=== PATIENT | female | born 1970 ===

== ENCOUNTER 2016-06-21 14:23 | Inpatient (IN) ==
--- NOTE | 2016-06-21 14:52 | EKG Report ---
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
[2016-06-21 15:05] LABS: Basophils % 0.3 % (0.0-0.8); Eosinophils # 0.3 10*3/uL (0.0-0.87); Eosinophils % 3.9 % (0.00-10.9); Hematocrit 24.3 VOL% (35.7-47.0); Hemoglobin 7.9 GM/DL (12.0-16.0); Immature Granulocytes % 1.1 %; Immature Granulocytes Absolute 0.08 #; Lymphocytes # 2.4 10*3/uL (1.4-4.0); Lymphocytes % 32.5 % (21.3-54.2); Mean Corpuscular HGB Conc 32.5 GM/DL (32-36); Mean Corpuscular Hemoglobin 29 PG (27-34); Mean Corpuscular Volume 89.7 FL (87-102); Mean Platelet Volume 9.3 FL (9.6-12.0); Monocytes # 0.3 10*3/uL (0.11-0.8); Monocytes % 3.7 % (1.7-12.7); Neutrophils # 4.2 10*3/uL (1.4-7.4); Neutrophils % 58.5 % (38.7-73.9); Platelet Count 270 T/CUMM (130-400); Red Blood Count 2.71 MC/CUMM (3.8-5.5); Red Cell Distribution Width 13.3 % (9.3-17.3); White Blood Count 7.2 T/CUMM (4-12)
[2016-06-21 15:40] LABS: Apearance,Urine CLOUDY (Clear); Bilirubin,Urine Negative (Negative); Blood, Urine Negative (Negative); Glucose,Urine (UA) 150 mg/dL (Negative); Ketones,Urine Negative (Negative); Mucus,Urine Occasional /LPF (Occasional); Nitrite,Urine Negative (Negative); Protein,Urine >=500 MG/DL; RBC,Urine 2 /HPF (0-4); Squamous Epithelial Cell,Urine Few /HPF (0-10); Urine Color Yellow (Yellow); Urine Specific Gravity 1.019 (1.001-1.035); Urine Urobilinogen < 2.0 EU/DL (0.2-1.0); WBC,Urine 17 /HPF (0-6)
[2016-06-21 15:43] LABS: Calcium 6.8 MG/DL (8.5-10.1); Osmolality,Calculated 301.4 MOS/KG (273-304); Potassium 4.1 MMOL/L (3.5-5.1)
[2016-06-21 15:45] LABS: Troponin I Only 0.213 NG/ML (0.00-0.045)
[2016-06-21 15:49] LABS: Barbiturates Screen,Urine Negative (Negative); Benzodiazepines Screen,Urine Negative (Negative); Cannabinoid Screen,Urine Negative (Negative); Opiate Screen,Urine Negative (Negative); Phencyclidine Screen,Urine Negative (Negative)
--- NOTE | 2016-06-21 15:54 | XRay Report ---
XR chest 1V portable Indication: Shortness of breath Comparison: 30 November 2015 Findings: The heart and mediastinum are normal in size and configuration. The pulmonary vascularity is normal in caliber. There is faint increased left lower lung density. No other lung infiltrates, effusions, pneumothorax or other abnormality is demonstrated. Impression: Faint increased left lower lung density, may indicate pneumonia. PROCEDURE INTERPRETED AT [facility] DEPARTMENT OF RADIOLOGY Final Report Signed by: Dr. Wesley aFy
[2016-06-21] MEDS ORDERED: FUROSEMIDE 20 MG/2 ML VIAL IV STA (16:39)
[2016-06-21] MEDS ORDERED: FUROSEMIDE 20 MG/2 ML VIAL ONE (16:54)
--- NOTE | 2016-06-21 17:07 | Emergency Department Note ---
Vernon Jimenez Brittany, am scribing for, and in the presence of, Khadar Rubi MD 14:50. Greyson Jimenez Doug C, MD, personally performed the services described in this documentation, ascribed by Ramya Junior in my presence, and it is both accurate and complete [id number] . Arrival - Arrival Chief Complaint: Syncope Stated Complaint: syncope ED Nursing Triage Note: Brought in per EMS from home s/p syncopal episode prior to arrival. Reports was in bathroom at home, became dizzy with blurred vision then had syncopal episode. c/o left shoulder pain. AAO x 3 at present, speech clear. Mode of Arrival: Stretcher Limitations: No Limitations Source: Patient, Family, RN Notes Reviewed Time Seen by Provider: 06/21/16 14:47 - History of Present Illness HPI Narrative: Patient is a 45-year-old truncal female stage C syncopal episode today. Patient states she was in the restroom when it occurred tells me she was feeling weak before it occurred. Patient states she noticed some blurring of her vision and went into the restroom to go the bathroom and the next thing she knew she was on the floor. She apparently had to crawl open the door was someone could come in and help her. Patient states she was feeling poorly for about 15-20 minutes before she had a syncopal episode. She denies any fever and she has not had any leg pain. She does have a history of coronary artery disease and fairly recently had a left heart catheterization showed her to have moderate coronary artery stenosis. She denies any chest pain or palpitations prior to this event. She apparently also has history of cardiomyopathy. Patient states she recently had a miscarriage but did not require a D&C. Date of Last Menstrual Period: 05/29/16 Allergies/Adverse Reactions: Allergies Allergy/AdvReac Type Severity Reaction Status Date / Time No Known Allergies Allergy Verified 06/21/16 14:35 Home Medications: Home Medications Medication Instructions Recorded Confirmed Type hydrALAZINE TAB [Apresoline Tab] 25 mg PO BID #180 tablet 12/01/15 06/21/16 Rx Insulin Detemir [Levemir] 5 units SUBCUT QAM 02/05/16 06/21/16 History Atorvastatin [Lipitor] 80 mg PO BEDTIME #30 tablet 02/07/16 06/21/16 Rx Carvedilol [Coreg] 25 mg PO BID #60 tablet 02/07/16 06/21/16 Rx Lisinopril [Prinivil] 10 mg PO BID #60 tablet 02/07/16 06/21/16 Rx amLODIPine [Norvasc] 5 mg PO DAILY #30 tablet 02/07/16 06/21/16 Rx Aspirin EC Tab 81 mg PO QPM 06/21/16 06/21/16 History Guaifenesin [Guaifenesin ER] 600 mg PO BID 06/21/16 06/21/16 History Isosorbide Mononitrate [Isosorbide 30 mg PO DAILY 06/21/16 06/21/16 History Mononitrate ER] Sulfameth/Trimeth 800-160 Tab 1 tablet PO BID 06/21/16 06/21/16 History [Bactrim DS Tab] Review of System - Review of System 12 point system: reviewed and no additional remarkable complaints except as stated - Review of System Constitutional: Absent: chills, fever Eyes: Present: vision change Head/Ears/Nose/Throat: Absent: nasal drainage, sore throat Respiratory: Absent: respiratory distress Cardiovascular: Present: syncope. Absent: chest pain, palpitations Gastrointestinal: Absent: abdominal pain, nausea, vomiting, diarrhea, constipation Genitourinary female: Absent: dysuria, frequency, urgency Musculoskeletal: Present: leg pain (thigh pain). Absent: arm pain, back pain, joint swelling, neck pain Skin: Absent: rash Neurological: Absent: headache Psychiatric: Absent: anxiety, depression Endocrine: Absent: fatigue Hematological/Lymphatic: Absent: easy bleeding, easy bruising Medical,Surgical,& Family Hx - Medical History Cardio: History of: Hypertension, [place] HEENT: History of: Ear Problem (ear infections) Endocrine: History of: Diabetes Mellitus (NIDDM) Genitourinary: History of: Recurring Urinary Tract Infections Hematology: History of: Anemia - Surgical History Cardiac Surgeries: Sugical HX of: Cardiac Catheterization Abdominal Surgeries: Surgical HX of: Appendectomy, Cholecystectomy Reproductive Surgeries: Surgical HX of;: Section - Family History Family History: Reports;: Family Cancer (Mother), Family Diabetes (Father) - Social History Smoking Status: Former smoker Frequency of Alcohol Use: None Type of Drug Use: None Exam Vital Signs: Vital Signs Temperature 97.2 F L 06/21/16 14:23 Pulse Rate 79 06/21/16 16:12 Respiratory Rate 18 06/21/16 15:30 Blood Pressure 126/75 06/21/16 16:12 O2 Sat by Pulse Oximetry 97 06/21/16 15:30 - General General appearance: alert, in no apparent distress - Head Head exam: Present: atraumatic, normocephalic, normal inspection - Eye Eye exam: Present: normal appearance, PERRL, EOMI - ENT ENT exam: Present: normal exam, normal oropharynx, mucous membranes moist - Neck Neck exam: Present: normal inspection, full ROM, trachea midline - Chest Chest inspection: Present: normal inspection, symmetric chest wall rise - Respiratory Respiratory exam: Present: normal lung sounds bilaterally. Absent: rales, rhonchi, wheezes - Cardiovascular Cardiovascular exam: Present: regular rate, normal rhythm, normal heart sounds. Absent: murmur, rubs, gallop - Abdominal Exam Abdominal exam: Present: soft, normal bowel sounds. Absent: distention, tenderness - Extremities Exam Extremities exam: Present: normal inspection, full ROM. Absent: calf tenderness - Back Exam Back exam: Present: normal inspection, full ROM - Neurological Exam Neurological exam: Present: alert, oriented X3, CN II-XII intact. Absent: motor sensory deficit - Psychiatric Psychiatric exam: Present: normal affect - Skin Skin exam: Present: warm, dry Course Course Narrative: Patient's clinical presentation, laboratory and radiographic findings were discussed with Dr. Valencia and Cornelia with the hospitalist service. Patient will be evaluated by the hospitalist service for admission. Results - Labs CBC & BMP: 06/21/16 14:55 06/21/16 14:55 Lab Results: I have reviewed the patients labs Labs: Laboratory Tests 06/21/16 14:55 WBC 7.2 RBC 2.71 L Hgb 7.9 L Hct 24.3 L MCV 89.7 MCH 29 MCHC 32.5 RDW 13.3 Plt Count 270 MPV 9.3 L Neut % (Auto) 58.5 Lymph % (Auto) 32.5 [place] % (Auto) 3.7 Eos % (Auto) 3.9 Baso % (Auto) 0.3 Neut # (Auto) 4.2 Lymph # (Auto) 2.4 [place] # (Auto) 0.3 Eos # (Auto) 0.3 Baso # (Auto) 0.0 Immature Gran % 1.1 Nucleated RBC % 0.0 Immature Gran # 0.08 Nucleated RBCs # 0.00 Laboratory Tests 06/21/16 14:55 D-Dimer, Quantitative 5.2 Laboratory Tests 06/21/16 15:32 Urine Color Yellow Urine Appearance Cloudy Urine pH 6.0 Ur Specific [place] 1.019 Urine Protein >=500 Urine Glucose (UA) 150 Urine Ketones Negative Urine Blood Negative Urine Nitrate Negative Urine Bilirubin Negative Urine Urobilinogen < 2.0 H Urine Leukocytes Negative Urine RBC 2 Urine WBC 17 Ur Squamous Epith Cells Few Urine Mucus Occasional Urine Test Negative Laboratory Tests 06/21/16 06/21/16 06/21/16 14:55 15:32 15:32 Sodium 147 H Potassium 4.1 Chloride 117 H Carbon Dioxide 17 L Anion Gap 17.1 H BUN 37 H Creatinine 4.40 H GFR Calculation 10 BUN/Creatinine Ratio 8.00 Glucose 119 H Calculated Osmolality 301.4 Calcium 6.8 L Troponin I 0.213 H Urine Appearance Cloudy Urine pH 6.0 Ur Specific [place] 1.019 Urine Protein >=500 Urine Glucose (UA) 150 Urine Ketones Negative Urine Blood Negative Urine Nitrate Negative Urine Bilirubin Negative Urine Urobilinogen < 2.0 H Urine Leukocytes Negative Urine RBC 2 Urine WBC 17 Ur Squamous Epith Cells Few Urine Mucus Occasional Urine Test Negative Urine Opiates Screen Negative Ur Barbiturates Screen Negative Ur Phencyclidine Scrn Negative U Amphetamine/Methamph Negative U Benzodiazepines Scrn Negative U Cocaine Metab Screen Negative U Cannabinoids Screen Negative Laboratory Tests 06/21/16 14:55 B-Natriuretic Peptide 1893 H - EKG EKG results: interpreted by VELMA, sinus rhythm (78 bpm) - Diagnostic Findings Procedure: Chest x-ray: report reviewed by me (Faint increased left lower lung density, may indicate pneumonia.) Disposition Clinical Impression: Syncope, CHF exacerbation, Renal failure Case discussed with: patient, patient's family Disposition: Still a Patient Condition: Guarded Time of Disposition: 17:07
--- NOTE | 2016-06-21 17:40 | Hospitalist History & Physical ---
<Karen Mathiasda - Last Filed: 06/21/16 17:31> History of Present Illness Chief complaint: Syncope History of present illness: This is a 45 year-old unfortunate female who presented today with a chief complaint of syncope. The client reports feeling lightheaded while in shower; in which she exited the shower falling to the floor. She reports remembering striking her left lateral flank on the sink during the fall; however has little memory of the any proceeding events. She reports crawling to the front door for help after "waking-up" from the fall. She reports left flank pain at the time of interview. Pertinent positives: syncope, visual disturbances , vertigo; pertinent negatives: nausea, vomiting, constipation. Home Medications Medication Instructions Recorded Confirmed Type hydrALAZINE TAB [Apresoline Tab] 25 mg PO BID #180 tablet 12/01/15 06/21/16 Rx Insulin Detemir [Levemir] 5 units SUBCUT QAM 02/05/16 06/21/16 History Atorvastatin [Lipitor] 80 mg PO BEDTIME #30 tablet 02/07/16 06/21/16 Rx Carvedilol [Coreg] 25 mg PO BID #60 tablet 02/07/16 06/21/16 Rx Lisinopril [Prinivil] 10 mg PO BID #60 tablet 02/07/16 06/21/16 Rx amLODIPine [Norvasc] 5 mg PO DAILY #30 tablet 02/07/16 06/21/16 Rx Aspirin EC Tab 81 mg PO QPM 06/21/16 06/21/16 History Guaifenesin [Guaifenesin ER] 600 mg PO BID 06/21/16 06/21/16 History Isosorbide Mononitrate [Isosorbide 30 mg PO DAILY 06/21/16 06/21/16 History Mononitrate ER] Sulfameth/Trimeth 800-160 Tab 1 tablet PO BID 06/21/16 06/21/16 History [Bactrim DS Tab] Allergies Allergy/AdvReac Type Severity Reaction Status Date / Time No Known Allergies Allergy Verified 06/21/16 14:35 Medical,Surgical,& Family Hx - Medical History Cardio: History of: Hypertension, [place] HEENT: History of: Ear Problem (ear infections) Endocrine: History of: Diabetes Mellitus (NIDDM) Genitourinary: History of: Recurring Urinary Tract Infections Hematology: History of: Anemia - Surgical History Cardiac Surgeries: Sugical HX of: Cardiac Catheterization Thoracic Surgeries: Surgical HX of;: Lithotripsy Abdominal Surgeries: Surgical HX of: Appendectomy, Cholecystectomy Reproductive Surgeries: Surgical HX of;: Section - Family History Family History: Reports;: Family Cancer (Mother), Family Diabetes (Father) - Social History Smoking Status: Former smoker Frequency of Alcohol Use: None Type of Drug Use: None Marital Status: Life Partner Lives With:: Spouse Functional capacity: independent ambulation Exam - Constitutional Vitals: Period Temp Pulse Resp BP Sys/Batres Pulse Ox Last 24 Hr 97.2 F-97.2 F 76-79 18-20 99-132/50-75 95-97 Results - Labs CBC & BMP: 06/21/16 14:55 06/21/16 14:55 <WhiteLucy R - Last Filed: 06/21/16 17:59> Assessment and Plan (1) Syncope Status: Acute Assessment and plan: Patient orthostatic in the emergency room. We will give her 2 units packed red blood cells. She had a recent miscarriage in her hemoglobin is just over 8 during her heart cath in January 2016. Patient will not tolerate gentle hydration due to congestive heart failure. Current Visit: Yes (2) Acute on chronic renal failure Status: Acute Assessment and plan: Patient had elevated BNP we will treat with IV Lasix. Normally somebody orthostatic I would not give Lasix but with such an elevated BNP and severe swelling in her lower extremities. I am concerned that the 2 units packed red blood cells that she will develop difficulty breathing. Consult Dr. Bonds repeat BMP in the morning Current Visit: Yes (3) CHF exacerbation Status: Acute Assessment and plan: Echocardiogram in the morning. Heart cath in January 2016 shows 2 vessel coronary disease and cardiomyopathy with an EF of 40%. Elevated BNP will do IV Lasix. Current Visit: Yes (4) Anemia Status: Acute Assessment and plan: Guaiac stool. Protonix IV. 2 units packed cells. Current Visit: No (5) Uncontrolled diabetes mellitus Status: Chronic Assessment and plan: Insulin sliding scale restart home insulin Current Visit: No Qualifiers: Diabetes mellitus type: type 2 Diabetes mellitus complication status: with kidney complications Diabetes mellitus complication detail: with chronic kidney disease Diabetes mellitus superintendent marine oil terminal insulin use: without superintendent marine oil terminal use Chronic kidney disease stage: stage 2 (mild) Qualified Code(s): E11.22 - Type 2 diabetes mellitus with diabetic chronic kidney disease History of Present Illness History of present illness: Ms. Triplett is a 45 year old female seen and examined. Hospital course reviewed and edited. Patient recently had a miscarriage 3 weeks ago. She was 17 weeks along. Patient denies any coughing up of blood or new blood or black tarry stools. Hemoglobin is 7.9 she is orthostatic. She has congestive heart failure she says she is not taking Lasix at home. Her last known EF was 40%. - Constitutional Constitutional: Present: fatigue. Absent: fever(s), frequent falls, headache(s) - EENT Eyes: Present: blurry vision. Absent: diplopia Ears: Present: decreased hearing. Absent: ear discharge Nose, mouth and throat: Absent: headache(s), sore throat - Cardiovascular Cardiovascular: Present: dyspnea on exertion, edema. Absent: chest pain at rest , dyspnea - Respiratory Respiratory: Present: dyspnea on exertion. Absent: dyspnea, change in phlegm color - Gastrointestinal Gastrointestinal: Absent: constipation, diarrhea, hematemesis, hematochezia, melena, nausea, vomiting - Genitourinary Genitourinary: Absent: difficulty urinating, dysuria - Neurological Neurological: Present: dizziness, syncope. Absent: confusion, headache(s) - Psychiatric Psychiatric: Absent: anxiety, depression - Endocrine Endocrine: Present: fatigue. Absent: cold intolerance, heat intolerance - Hematologic/Lymphatic Hematologic/Lymphatic: Absent: easy bleeding, easy bruising Exam - Constitutional Vitals: Period Temp Pulse Resp BP Sys/Batres Pulse Ox Last 24 Hr 97.2 F-97.2 F 75-79 18-20 99-132/50-87 95-97 General appearance: normal weight, no acute distress - Head Head exam: Present: normal inspection, normocephalic - Eye Eye exam: Present: EOMI. Absent: scleral icterus Pupils: Present: HAILEY, normal accommodation - ENT ENT exam: Present: normal exam, normal external ear exam - Neck Neck exam: Absent: lymphadenopathy, thyromegaly - Respiratory Respiratory exam: Present: decreased breath sounds. Absent: rhonchi, wheezes - Cardiovascular Cardiovascular exam: Present: regular rate and rhythm. Absent: systolic murmur - GI/Abdominal GI/Abdominal exam: Present: normal bowel sounds, soft. Absent: tenderness - Extremities Exam Extremities exam: Present: normal capillary refill, edema - Neurological Exam Neurological exam: Present: alert, oriented X3, CN II-XII intact, reflexes normal. Absent: motor sensory deficit - Psychiatric Psychiatric exam: Present: normal affect, normal mood - Skin Skin exam: Present: normal color, warm Results - Labs CBC & BMP: 06/21/16 14:55 06/21/16 14:55 Lab Results: I have reviewed the past 24 hour labs Labs: BNP over 1800 - EKG EKG shows: sinus rhythm - Diagnostic Findings Procedure: Chest x-ray: report reviewed by me (LLL density), X-ray: report reviewed by me (Recent cardiac cath shows mixed cardiomyopathy with an EF of 40 % two-vessel coronary disease)
[2016-06-21 17:54] LABS: Eosinophils 4 % (0-10); Lymphocytes 25 % (20-55); Segmented Neutrophils 71 % (50-85); Total Cells Counted 100
[2016-06-21] MEDS ORDERED: MAGNESIUM SULF RIDER 4 GM in PREMIX 1 EACH IV PRN (18:05)
[2016-06-21] MEDS ORDERED: GLUCAGON 1 MG VIAL IM PRN (18:05)
[2016-06-21] MEDS ORDERED: ZALEPLON 5 MG CAPSULE PO PRN (18:05)
[2016-06-21] MEDS ORDERED: POTASSIUM CHLORIDE 20 MEQ TABLET PO PRN (18:05)
[2016-06-21] MEDS ORDERED: ONDANSETRON 4 MG/2 ML VIAL IV PRN (18:05)
[2016-06-21] MEDS ORDERED: DEXTROSE 50% 25 GM/50 ML VIAL IV PRN (18:05)
[2016-06-21] MEDS ORDERED: SODIUM CHLORIDE 0.9% 250 ML IV PRN (18:05)
[2016-06-21] MEDS ORDERED: ACETAMINOPHEN 325 MG TABLET PO PRN (18:05)
[2016-06-21] MEDS ORDERED: MAGNESIUM SULF RIDER 2 GM in PREMIX 1 EACH IV PRN (18:05)
[2016-06-21 18:56] LABS: Apearance,Urine Slightly Hazy (Clear); Bacteria,Urine Moderate /HPF (Few); Bilirubin,Urine Negative (Negative); Blood, Urine Small mg/dL (Negative); Glucose,Urine (UA) 150 mg/dL (Negative); Ketones,Urine Negative (Negative); Mucus,Urine Occasional /LPF (Occasional); Nitrite,Urine Negative (Negative); Protein,Urine >=500 MG/DL; Urine Color Yellow (Yellow); Urine Urobilinogen < 2.0 EU/DL (0.2-1.0); WBC,Urine 3 /HPF (0-6)
[2016-06-21 19:12] LABS: Magnesium 2.1 MG/DL (1.8-2.4); Thyroid Stimulating Hormone 2.74 uIU/ml (0.358-3.74)
[2016-06-21] MEDS: cefTRIAXone 1,000 MG in SODIUM CHLORIDE 0.9% 100 ML IV SCH (19:37)
[2016-06-21] MEDS: INSULIN LISPRO 100 UNIT/ML SUBCUT SCH (21:32)
--- NOTE | 2016-06-21 21:54 | Nephrology Consult Note ---
History of Present Illness Chief complaint: Acute renal failure History of present illness: Ms. Triplett is a 45 year old female with a history of hypertension diabetes coronary artery disease who earlier this afternoon fell in the bathroom after a syncopal episode. There is no history of shortness of breath or chest pain. However patient does not have any other memory surrounding the syncopal episode. She was brought to the emergency room where she is found to be anemic. Serum creatinine was also noted to be elevated at 4.4. She gives no history of kidney disease. She mentions taking Advil on occasion. Nephrology has been consulted for renal issues. Home Medications Medication Instructions Recorded Confirmed Type hydrALAZINE TAB [Apresoline Tab] 25 mg PO BID #180 tablet 12/01/15 06/21/16 Rx Insulin Detemir [Levemir] 5 units SUBCUT QAM 02/05/16 06/21/16 History Atorvastatin [Lipitor] 80 mg PO BEDTIME #30 tablet 02/07/16 06/21/16 Rx Carvedilol [Coreg] 25 mg PO BID #60 tablet 02/07/16 06/21/16 Rx Lisinopril [Prinivil] 10 mg PO BID #60 tablet 02/07/16 06/21/16 Rx amLODIPine [Norvasc] 5 mg PO DAILY #30 tablet 02/07/16 06/21/16 Rx Aspirin EC Tab 81 mg PO QPM 06/21/16 06/21/16 History Guaifenesin [Guaifenesin ER] 600 mg PO BID 06/21/16 06/21/16 History Isosorbide Mononitrate [Isosorbide 30 mg PO DAILY 06/21/16 06/21/16 History Mononitrate ER] Sulfameth/Trimeth 800-160 Tab 1 tablet PO BID 06/21/16 06/21/16 History [Bactrim DS Tab] Allergies Allergy/AdvReac Type Severity Reaction Status Date / Time No Known Allergies Allergy Verified 06/21/16 14:35 Medical,Surgical,& Family Hx - Medical History Cardio: History of: CHF, Hypertension, [place] HEENT: History of: Ear Problem (ear infections) Endocrine: History of: Diabetes Mellitus (NIDDM) Respiratory: History of: Asthma Genitourinary: History of: Recurring Urinary Tract Infections Hematology: History of: Anemia - Surgical History Cardiac Surgeries: Sugical HX of: Cardiac Catheterization (january 2016) Thoracic Surgeries: Surgical HX of;: Lithotripsy Patient denies;: Lobectomy Abdominal Surgeries: Surgical HX of: Appendectomy, Cholecystectomy Reproductive Surgeries: Surgical HX of;: Section, Dilation and Curettage (May 2016) - Family History Family History: Reports;: Family Cancer (Mother), Family Diabetes (Father) - Social History Smoking Status: Former smoker Frequency of Alcohol Use: None Type of Drug Use: None Review of Systems Constitutional: fatigue Respiratory: no cough, no dyspnea Exam - Vital Signs Vital signs: Period Temp Pulse Resp BP Sys/Batres Pulse Ox Last 24 Hr 97.5 F-98.1 F 78-88 17-25 116-166/77-89 94-97 - General Appearance General appearance: well-developed, well-nourished EENT: ATNC Neck: supple Respiratory: clear Cardiology: regular rate, regular rhythm Gastrointestinal: normoactive bowel sounds, no tenderness, no guarding Neurologic: alert and oriented x3 Musculoskeletal: no deformities Results - Labs CBC & BMP: 06/21/16 14:55 06/21/16 14:55 Assessment and Plan (1) Hypertension Status: Chronic Current Visit: No (2) Renal insufficiency Status: Chronic Assessment and plan: Patient more likely has underlying chronic kidney disease. Appears to be acute on chronic kidney disease. Current Visit: No (3) Diabetes Status: Chronic Current Visit: No Qualifiers: Diabetes mellitus type: other specified (including MELANIA) Diabetes mellitus complication status: with kidney complications Chronic kidney disease stage: stage 3 (moderate) (4) Anemia Status: Acute Current Visit: No (5) Acute on chronic renal failure Status: Acute Assessment and plan: Avoid nephrotoxic agents. Renal ultrasound. Daily BMP. Will follow with you thank you for this consult. Current Visit: Yes
[2016-06-21] MEDS ORDERED: FUROSEMIDE 40 MG/4 ML VIAL IV ONE (23:30)
[2016-06-21] MEDS: ATORVASTATIN 40 MG TABLET PO SCH (23:43)
[2016-06-22 05:25] LABS: Basophils % 0.6 % (0.0-0.8); Eosinophils # 0.2 10*3/uL (0.0-0.87); Eosinophils % 4.4 % (0.00-10.9); Hematocrit 28.9 VOL% (35.7-47.0); Hemoglobin 9.5 GM/DL (12.0-16.0); Immature Granulocytes % 0.6 %; Immature Granulocytes Absolute 0.03 #; Lymphocytes # 2.7 10*3/uL (1.4-4.0); Lymphocytes % 53.7 % (21.3-54.2); Mean Corpuscular HGB Conc 32.9 GM/DL (32-36); Mean Corpuscular Hemoglobin 29 PG (27-34); Mean Corpuscular Volume 89.5 FL (87-102); Mean Platelet Volume 9.6 FL (9.6-12.0); Monocytes # 0.3 10*3/uL (0.11-0.8); Monocytes % 6.6 % (1.7-12.7); Neutrophils # 1.7 10*3/uL (1.4-7.4); Neutrophils % 34.1 % (38.7-73.9); Platelet Count 268 T/CUMM (130-400); Red Blood Count 3.23 MC/CUMM (3.8-5.5); Red Cell Distribution Width 13.7 % (9.3-17.3)
[2016-06-22 05:49] LABS: Lymphocytes 47 % (20-55); Platelet Estimate Normal; Segmented Neutrophils 46 % (50-85); Total Cells Counted 100
[2016-06-22 05:54] LABS: Osmolality,Calculated 296.6 MOS/KG (273-304)
[2016-06-22] MEDS: FUROSEMIDE 40 MG/4 ML VIAL IV SCH ×3 (07:22→16:44)
[2016-06-22] MEDS: INSULIN LISPRO 100 UNIT/ML SUBCUT SCH ×4 (07:23→20:13)
[2016-06-22] MEDS ORDERED: PNEUMOCOCCAL VACCINE (23 VALENT) 0.5 ML VIAL IM ONE (09:00)
[2016-06-22] MEDS ORDERED: INFLUENZA VIRUS VACCINE 0.5 ML SYRINGE IM ONE (09:00)
[2016-06-22] MEDS: DOCUSATE/SENNA 50-8.6 MG TABLET PO SCH (09:55)
[2016-06-22] MEDS: INSULIN GLARGINE 100 UNIT/ML SUBCUT SCH (09:55)
--- NOTE | 2016-06-22 10:00 | Ultrasound Report ---
Referring Physician: Leif Bonds Jr Exam: US renal Bilateral Date: June 22, 2016 Reason: Acute renal failure Comparison: Renal ultrasound November 29, 2015 Technique: Grayscale ultrasound images of the kidneys were obtained. Ultrasound images were captured and stored. Findings: The right kidney measures 9.9 x 4.4 x 4.0 cm, and the left kidney measures 10.1 x 5.0 x 4.2 cm. No hydronephrosis or suspicious renal lesion is identified. The renal parenchyma echogenicity is unremarkable as visualized. Impression: No acute renal process is identified. PROCEDURE INTERPRETED AT [facility] DEPARTMENT OF RADIOLOGY Final Report Signed by: Dr. Nabeel Triplett
[2016-06-22] MEDS: amLODIPine 5 MG TABLET PO SCH (10:42)
[2016-06-22] MEDS: hydrALAZINE 25 MG TABLET PO SCH ×2 (10:43→20:05)
[2016-06-22] MEDS: LISINOPRIL 10 MG TABLET PO SCH ×2 (10:45→20:05)
--- NOTE | 2016-06-22 11:41 | Hospitalist Progress Note ---
Assessment and Plan (1) Chest pain Status: Acute Assessment and plan: patient also has chest wall pain/ flank pain of the left side from the fall. Troponin has been stable. Current Visit: No Qualifiers: Chest pain type: chest pain due to myocardial ischemia Qualified Code(s): I20.9 - Angina pectoris, unspecified (2) Hypertension Status: Chronic Assessment and plan: home meds resumed Current Visit: No Qualifiers: Hypertension type: essential hypertension Qualified Code(s): I10 - Essential (primary) hypertension (3) Uncontrolled diabetes mellitus Status: Chronic Current Visit: No Qualifiers: Diabetes mellitus type: type 2 Diabetes mellitus complication status: with kidney complications Diabetes mellitus complication detail: with chronic kidney disease Diabetes mellitus senior care insulin use: without rat exterminator use Chronic kidney disease stage: stage 2 (mild) Qualified Code(s): E11.22 - Type 2 diabetes mellitus with diabetic chronic kidney disease (4) Anemia Status: Acute Assessment and plan: received 2 units prbc. HGB now 9.5 Current Visit: No Qualifiers: Anemia type: unspecified type Qualified Code(s): D64.9 - Anemia, unspecified (5) Syncope Status: Acute Assessment and plan: work up underway. Current Visit: Yes Qualifiers: Encounter type: initial encounter (6) Acute on chronic renal failure Status: Chronic Assessment and plan: appears to be CKD. Nephrology following. Current Visit: Yes Hospitalist: Subjective Interval history: Patient seen and examined. She continues to have pain in the left side of her chest and flank where she fell yesterday. She received 2 units of packed red blood cells overnight. Her blood pressure has normalized and her hemoglobin is up to 9.5 She is stable and will transfer to the floor. Exam - Constitutional Vitals: Period Temp Pulse Resp BP Sys/Batres Pulse Ox Last 24 Hr 97.5 F-98.6 F 72-88 13-25 116-166/73-89 93-97 General appearance: no acute distress, other (complains of pain in the left flank.) - Head Head exam: Present: normal inspection, normocephalic - Eye Eye exam: Present: EOMI Pupils: Present: HAILEY - Respiratory Respiratory exam: Present: clear to auscultation bilaterally, other (left flank and chest wall pain on palpation and deep inspiration.) - Cardiovascular Cardiovascular exam: Present: regular rate and rhythm - GI/Abdominal GI/Abdominal exam: Present: normal bowel sounds, soft. Absent: tenderness, rebound - Extremities Exam Extremities exam: Present: normal inspection, full ROM. Absent: edema - Neurological Exam Neurological exam: Present: alert, oriented X3 - Psychiatric Psychiatric exam: Present: normal affect, normal mood - Skin Skin exam: Present: normal color, warm, dry Results - Labs CBC & BMP: 06/22/16 04:42 06/22/16 04:42 Lab Results: I have reviewed the past 24 hour labs
--- NOTE | 2016-06-22 15:01 | Nephrology Progress Note ---
Nephrology - PN: Subj Interval history: Patient is resting no acute changes. She has been moved from ICU setting. Renal function is stable with a creatinine of 4.4. Exam (PN)-Nephrology - Vital Signs Vital signs: Period Temp Pulse Resp BP Sys/Batres Pulse Ox Last 24 Hr 97.4 F-98.6 F 72-88 13-25 116-189/73-90 93-99 - General Appearance General appearance: well-developed, well-nourished EENT: ATNC Neck: supple Respiratory: clear Cardiology: regular rate, regular rhythm Gastrointestinal: normoactive bowel sounds, no tenderness Neurologic: alert and oriented x3, CN 3-12 intact Musculoskeletal: no clubbing - Lab 06/22/16 04:42 06/22/16 04:42 Most recent lab results Calcium 7.0 MG/DL (8.5-10.1) L 06/22/16 04:42 Magnesium 2.1 MG/DL (1.8-2.4) 06/21/16 14:55 Assessment and Plan (1) Hypertension Status: Chronic Current Visit: No Qualifiers: Hypertension type: essential hypertension Qualified Code(s): I10 - Essential (primary) hypertension (2) Renal insufficiency Status: Chronic Assessment and plan: Patient more likely has underlying chronic kidney disease. Appears to be acute on chronic kidney disease. Current Visit: No (3) Diabetes Status: Chronic Current Visit: No Qualifiers: Diabetes mellitus type: other specified (including MELANIA) Diabetes mellitus complication status: with kidney complications Chronic kidney disease stage: stage 3 (moderate) (4) Anemia Status: Acute Current Visit: No Qualifiers: Anemia type: unspecified type Qualified Code(s): D64.9 - Anemia, unspecified (5) Acute on chronic renal failure Status: Chronic Assessment and plan: Avoid nephrotoxic agents. Renal ultrasound. Daily BMP. Will follow with you thank you for this consult. Current Visit: Yes
--- NOTE | 2016-06-22 15:23 | Ultrasound Report ---
Carotid artery ultrasound Indication: Syncope Comparison: None available Findings: Small amount of atherosclerotic plaque is present in both proximal internal carotid arteries. The peak systolic velocity in the right is 119 cm/s . Ratio of flow is 1.5. The peak systolic velocity in the left is 122 cm/s . Ratio of flow is 1.6 Bilateral antegrade vertebral flow is seen. Impression: No evidence of hemodynamically significant stenosis is seen, 0-49% estimated stenosis. Consensus conference on the carotid ultrasound criteria used. Ultrasound images were captured and stored. PROCEDURE INTERPRETED AT [facility] DEPARTMENT OF RADIOLOGY Final Report Signed by: Dr. Wesley Fay
--- NOTE | 2016-06-22 17:01 | XRay Report ---
XR ribs LT w pa chest Indication: Pain after injury Findings: There is fracture of the lateral left eighth rib with slight displacement. No subpleural hematoma or pneumothorax is present. Impression: Left lateral eighth rib fracture as described above. PROCEDURE INTERPRETED AT [facility] DEPARTMENT OF RADIOLOGY Final Report Signed by: Dr. Wesley Fay
[2016-06-22] MEDS: cefTRIAXone 1,000 MG in SODIUM CHLORIDE 0.9% 100 ML IV SCH (18:42)
[2016-06-22] MEDS: ASPIRIN EC 81 MG TABLET PO SCH (18:43)
--- NOTE | 2016-06-22 19:02 | ECHO Report ---
Sd Triplett Exam Date: 06/22/2016 08:00 Referring Physician: Technologist: Rosario DELEON Age: 45 Ht (in): Wt (lb): Gender: F Exam Location: [facility] Echo Indications: Hypotension, SOB, syncope, CHF, Renal Failure BP: / HR: Rhythm: Sinus Technical Quality: Good IMPRESSIONS EF 35-40 %. Moderate concentric left ventricular hypertrophy. Grade I/IV diastolic dysfunction (abnormal relaxation filling pattern), normal to mildly elevated filling pressures. Normal right ventricular size. Normal right atrial size. The left atrium is mildly enlarged. Morphologically normal mitral valve. Trace mitral valve regurgitation. The aortic valve is trileaflet, delicate and has normal motion. No aortic valve regurgitation. Mild tricuspid valve regurgitation. HVK14-47 mmHg. Trace pulmonary valve regurgitation. Small pericardial effusion. Normal size aortic root and proximal ascending aorta. MEASUREMENTS (Male / Female) Normal Values 2D ECHO LV Diastolic Diameter PLAX 4.7 cm 4.2 - 5.9 / 3.9 - 5.3 cm LV Systolic Diameter PLAX 3.8 cm LV Fractional Shortening PLAX 18.8 % IVS Diastolic Thickness 1.0 cm 0.6 - 1.0 / 0.6 - 0.9 cm LVPW Diastolic Thickness 1.2 cm 0.6 - 1.0 / 0.6 - 0.9 cm RV Internal Dim ED PLAX 1.8 cm Aortic Root Diameter 2.3 cm LA Systolic Diameter LX 3.3 cm 3.0 - 4.0 / 2.7 - 3.8 cm DOPPLER TR Peak Velocity 265.0 cm/s TR Peak Gradient 28.1 mmHg FINDINGS Left Ventricle EF 35-40 %. Moderate concentric left ventricular hypertrophy. Grade I/IV diastolic dysfunction (abnormal relaxation filling pattern), normal to mildly elevated filling pressures. Right Ventricle Normal right ventricular size. Right Atrium Normal right atrial size. Left Atrium The left atrium is mildly enlarged. Mitral Valve Morphologically normal mitral valve. Trace mitral valve regurgitation. Aortic Valve The aortic valve is trileaflet, delicate and has normal motion. No aortic valve regurgitation. Tricuspid Valve Morphologically normal tricuspid valve. Mild tricuspid valve regurgitation. HAS78-61 mmHg. Pulmonic Valve Morphologically normal pulmonic valve. Trace pulmonary valve regurgitation. Pericardium Small pericardial effusion. Aorta Normal size aortic root and proximal ascending aorta. Ramon Wilder (Electronically Signed) Final Date: 22 June 2016 19:01
[2016-06-22] MEDS: ATORVASTATIN 40 MG TABLET PO SCH (20:04)
[2016-06-22] MEDS: CARVEDILOL 25 MG TABLET PO SCH (20:05)
[2016-06-23 05:46] LABS: Hematocrit 31.3 VOL% (35.7-47.0); Hemoglobin 10.6 GM/DL (12.0-16.0); Mean Corpuscular Hemoglobin 29 PG (27-34); Mean Corpuscular Volume 86.7 FL (87-102); Red Blood Count 3.61 MC/CUMM (3.8-5.5); White Blood Count 5.8 T/CUMM (4-12)
[2016-06-23 05:47] LABS: Basophils % 0.3 % (0.0-0.8); Eosinophils # 0.4 10*3/uL (0.0-0.87); Eosinophils % 6.2 % (0.00-10.9); Immature Granulocytes % 0.7 %; Immature Granulocytes Absolute 0.04 #; Lymphocytes # 2.9 10*3/uL (1.4-4.0); Lymphocytes % 50.5 % (21.3-54.2); Mean Corpuscular HGB Conc 33.9 GM/DL (32-36); Mean Platelet Volume 9.4 FL (9.6-12.0); Monocytes # 0.4 10*3/uL (0.11-0.8); Monocytes % 6.7 % (1.7-12.7); Neutrophils # 2.1 10*3/uL (1.4-7.4); Neutrophils % 35.6 % (38.7-73.9); Platelet Count 323 T/CUMM (130-400); Red Cell Distribution Width 13.8 % (9.3-17.3)
[2016-06-23 06:16] LABS: Burr Cells Slight; Eosinophils 4 % (0-10); Hypochromasia Slight; Lymphocytes 48 % (20-55); Ovalocytes Slight; Platelet Estimate Adequate; Segmented Neutrophils 37 % (50-85); Total Cells Counted 100
[2016-06-23 06:31] LABS: Calcium 6.8 MG/DL (8.5-10.1); Osmolality,Calculated 295.7 MOS/KG (273-304); Potassium 4.3 MMOL/L (3.5-5.1)
[2016-06-23] MEDS: INSULIN LISPRO 100 UNIT/ML SUBCUT SCH ×4 (07:30→21:57)
[2016-06-23] MEDS: DOCUSATE/SENNA 50-8.6 MG TABLET PO SCH (08:49)
[2016-06-23] MEDS: CARVEDILOL 25 MG TABLET PO SCH ×2 (08:49→20:44)
[2016-06-23] MEDS: ISOSORBIDE MONONITRATE 30 MG TABLET PO SCH (08:50)
[2016-06-23] MEDS: hydrALAZINE 25 MG TABLET PO SCH ×2 (08:50→20:44)
[2016-06-23] MEDS: LISINOPRIL 10 MG TABLET PO SCH ×2 (08:51→20:44)
[2016-06-23] MEDS: FUROSEMIDE 40 MG/4 ML VIAL IV SCH ×2 (08:51→17:06)
[2016-06-23] MEDS: INSULIN GLARGINE 100 UNIT/ML SUBCUT SCH (08:51)
--- NOTE | 2016-06-23 09:01 | XRay Report ---
History: Chest pain after fall Date: 06/23/2016 Study: Chest x-ray PA and lateral Comparison exam: 06/22/2016 There is continued cardiomegaly. The mediastinal contours are unchanged. The pulmonary vasculature is not engorged. There is no pneumothorax. There is some atelectatic parenchymal consolidation in the left lower lobe which is generally unchanged. There is mild subsegmental atelectasis in the right lung base, unchanged. There is mild left greater than right pleural effusion. There is a moderately displaced fracture of the lateral aspect of the left eighth rib with relatively good alignment. Exam is otherwise unchanged. Impression: No evidence of a pneumothorax. Left eighth rib fracture as before. Left greater than right bibasilar atelectasis and pleural effusion PROCEDURE INTERPRETED AT [facility] DEPARTMENT OF RADIOLOGY Final Report Signed by: Dr. Natalie Ware
[2016-06-23] MEDS: amLODIPine 5 MG TABLET PO SCH (09:02)
--- NOTE | 2016-06-23 13:12 | Hospitalist Progress Note ---
Assessment and Plan (1) Chest pain Status: Acute Assessment and plan: patient has chest wall pain/ flank pain of the left side from the fall due to 8th rib fracture. Current Visit: No Qualifiers: Chest pain type: chest pain due to myocardial ischemia Qualified Code(s): I20.9 - Angina pectoris, unspecified (2) Hypertension Status: Chronic Assessment and plan: home meds resumed Current Visit: No Qualifiers: Hypertension type: essential hypertension Qualified Code(s): I10 - Essential (primary) hypertension (3) Uncontrolled diabetes mellitus Status: Chronic Current Visit: No Qualifiers: Diabetes mellitus type: type 2 Diabetes mellitus complication status: with kidney complications Diabetes mellitus complication detail: with chronic kidney disease Diabetes mellitus fci insulin use: without fci use Chronic kidney disease stage: stage 2 (mild) Qualified Code(s): E11.22 - Type 2 diabetes mellitus with diabetic chronic kidney disease (4) Anemia Status: Acute Assessment and plan: received 2 units prbc. HGB now 9.5 Current Visit: No Qualifiers: Anemia type: unspecified type Qualified Code(s): D64.9 - Anemia, unspecified (5) Syncope Status: Acute Assessment and plan: work up underway. Current Visit: Yes Qualifiers: Encounter type: initial encounter (6) Acute on chronic renal failure Status: Chronic Assessment and plan: appears to be CKD. Nephrology following. Current Visit: Yes (7) Chronic left ventricular systolic heart failure Status: Chronic Assessment and plan: Echo reviewed. Current Visit: Yes Hospitalist: Subjective Interval history: Patient seen and examined. She reports continued pain in the left flank. X- ray shows a fracture of the eighth rib. Echocardiogram shows congestive heart failure with ejection fraction of 35%. Patient sees Dr. Saumya Alanis for cardiology. She also has chronic kidney disease. She was anemic and orthostatic on admission and received 2 units of packed red blood cells. Her blood pressure is improved. She is encouraged to ambulate. Plan for discharge home tomorrow. Carotid ultrasound without blockage. Exam - Constitutional Vitals: Period Temp Pulse Resp BP Sys/Batres Pulse Ox Last 24 Hr 96.1 F-98.6 F 78-88 16-20 132-194/68-94 95-100 General appearance: no acute distress - Head Head exam: Present: normal inspection, normocephalic - Eye Eye exam: Present: EOMI - Respiratory Respiratory exam: Present: clear to auscultation bilaterally, other (chest wall pain left flank.) - Cardiovascular Cardiovascular exam: Present: regular rate and rhythm - GI/Abdominal GI/Abdominal exam: Present: normal bowel sounds, soft. Absent: tenderness, rebound - Extremities Exam Extremities exam: Absent: edema - Neurological Exam Neurological exam: Present: alert, oriented X3 - Psychiatric Psychiatric exam: Present: normal affect, normal mood - Skin Skin exam: Present: normal color, warm, dry Results - Labs CBC & BMP: 06/23/16 05:32 06/23/16 05:32 Lab Results: I have reviewed the past 24 hour labs Specialty Discharge - Follow Up or Referrals Follow up with: Leif Bonds Jr., MD [Physician] - Saumya Velez DO [Physician] - (Follow up as previously scheduled.)
[2016-06-23] MEDS: cefTRIAXone 1,000 MG in SODIUM CHLORIDE 0.9% 100 ML IV SCH (18:10)
--- NOTE | 2016-06-23 18:57 | Nephrology Progress Note ---
Nephrology - PN: Subj Interval history: Patient is resting comfortably. Follow-up chest x-ray did show evidence of 1/8 rib fracture. Serum creatinine is been 4.8. No shortness of breath or chest pain. At discharge she will need follow-up with me in approximately 2 weeks with the BMP. Exam (PN)-Nephrology - Vital Signs Vital signs: Period Temp Pulse Resp BP Sys/Batres Pulse Ox Last 24 Hr 96.1 F-97.6 F 74-88 18-20 117-194/63-94 93-100 - General Appearance General appearance: well-developed, well-nourished EENT: ATNC Neck: supple Respiratory: clear Cardiology: no edema, regular rate, regular rhythm Gastrointestinal: normoactive bowel sounds, no tenderness Integumentary: no rash Neurologic: alert and oriented x3, CN 3-12 intact Musculoskeletal: no clubbing Psychiatric: mood/affect appropriate - Lab 06/23/16 05:32 06/23/16 05:32 Most recent lab results Calcium 6.8 MG/DL (8.5-10.1) L 06/23/16 05:32 Magnesium 2.1 MG/DL (1.8-2.4) 06/21/16 14:55 Assessment and Plan (1) Hypertension Status: Chronic Current Visit: No Qualifiers: Hypertension type: essential hypertension Qualified Code(s): I10 - Essential (primary) hypertension (2) Renal insufficiency Status: Chronic Assessment and plan: Patient more likely has underlying chronic kidney disease. Appears to be acute on chronic kidney disease. Current Visit: No (3) Diabetes Status: Chronic Current Visit: No Qualifiers: Diabetes mellitus type: other specified (including MELANIA) Diabetes mellitus complication status: with kidney complications Chronic kidney disease stage: stage 3 (moderate) (4) Anemia Status: Acute Current Visit: No Qualifiers: Anemia type: unspecified type Qualified Code(s): D64.9 - Anemia, unspecified (5) Acute on chronic renal failure Status: Chronic Assessment and plan: Avoid nephrotoxic agents. Will follow with you thank you for this consult. Current Visit: Yes Specialty Discharge - Follow Up or Referrals Follow up with: Leif Bonds Jr., MD [Physician] - Saumya Velez DO [Physician] - (Follow up as previously scheduled.)
[2016-06-23] MEDS: ASPIRIN EC 81 MG TABLET PO SCH (19:42)
[2016-06-23] MEDS: ATORVASTATIN 40 MG TABLET PO SCH (20:44)
[2016-06-24 03:25] LABS: Basophils % 0.6 % (0.0-0.8); Eosinophils # 0.3 10*3/uL (0.0-0.87); Eosinophils % 4.7 % (0.00-10.9); Hematocrit 29.8 VOL% (35.7-47.0); Hemoglobin 9.8 GM/DL (12.0-16.0); Immature Granulocytes % 0.6 %; Immature Granulocytes Absolute 0.04 #; Lymphocytes # 2.7 10*3/uL (1.4-4.0); Lymphocytes % 41.8 % (21.3-54.2); Mean Corpuscular HGB Conc 32.9 GM/DL (32-36); Mean Corpuscular Hemoglobin 30 PG (27-34); Mean Platelet Volume 9.7 FL (9.6-12.0); Monocytes # 0.4 10*3/uL (0.11-0.8); Monocytes % 6.1 % (1.7-12.7); Neutrophils % 46.2 % (38.7-73.9); Platelet Count 306 T/CUMM (130-400); Red Blood Count 3.31 MC/CUMM (3.8-5.5); White Blood Count 6.4 T/CUMM (4-12)
[2016-06-24 03:50] LABS: Calcium 7.1 MG/DL (8.5-10.1); Potassium 4.9 MMOL/L (3.5-5.1)
[2016-06-24] MEDS: INSULIN LISPRO 100 UNIT/ML SUBCUT SCH (07:45)
[2016-06-24] MEDS: amLODIPine 5 MG TABLET PO SCH (08:22)
[2016-06-24] MEDS: LISINOPRIL 10 MG TABLET PO SCH (08:22)
[2016-06-24] MEDS: DOCUSATE/SENNA 50-8.6 MG TABLET PO SCH (08:22)
[2016-06-24] MEDS: hydrALAZINE 25 MG TABLET PO SCH (08:23)
[2016-06-24] MEDS: ISOSORBIDE MONONITRATE 30 MG TABLET PO SCH (08:23)
[2016-06-24] MEDS: CARVEDILOL 25 MG TABLET PO SCH (08:23)
[2016-06-24] MEDS: INSULIN GLARGINE 100 UNIT/ML SUBCUT SCH (08:30)
[2016-06-24] MEDS: FUROSEMIDE 40 MG/4 ML VIAL IV SCH (08:31)
--- NOTE | 2016-06-24 09:34 | Discharge Summary ---
Hospital Course - Hospital Course Hospital Course: 45-year-old female admitted to the hospital after a syncopal episode. Patient fell striking her left flank and suffered 8th rib fracture. She was found to be anemic. She was transfused 2 units of packed red blood cells. Her H&H has been stable since transfusion. She also has acute on chronic kidney disease with a creatinine between 4.8 and 5. She was seen in consultation by Dr. Bonds. She had a renal ultrasound which was unremarkable. Echocardiogram shows an ejection fraction of 35%. The patient is followed by Dr. Alanis and has an appointment scheduled in August. There was no evidence of acute congestive heart failure during this hospitalization. The patient appeared to have a syncopal episode related to orthostatic hypotension and anemia. This is improved with transfusion and IV fluid hydration. She is being discharged home today to follow-up as an outpatient with nephrology and cardiology as needed. I had a lengthy discussion with the patient and her spouse at the bedside regarding her diagnosis of congestive heart failure chronic systolic type as well as her chronic kidney disease. She was given pain medications upon discharge for the acute left eighth rib pain/fracture. - Time spent with patient Time with patient DS: Greater than 30 minutes (Total discharge time for this patient including [id number] time clinical documentation medication reconciliation and discharge planning was 40 minutes) Diagnosis - Discharge Diagnosis (1) Chest pain Status: Acute (2) Hypertension Status: Chronic (3) Uncontrolled diabetes mellitus Status: Chronic (4) Anemia Status: Resolved (5) Syncope Status: Resolved (6) Acute on chronic renal failure Status: Chronic (7) Chronic left ventricular systolic heart failure Status: Chronic Specialty Discharge - Follow Up or Referrals Follow up with: Leif Bonds Jr., MD [Physician] - Saumya Velez DO [Physician] - (Follow up as previously scheduled.) Discharge Plan - Discharge Data Disposition: Disch To Home/Self Care Condition at Discharge: Stable Discharge Diet: advance to your usual diet Activity: resume usual activities as tolerated Hygiene: no restrictions - Discharge Medications New HYDROcodone/ACETAMIN 5-325 [[place] 5-325] 1 tablet PO Q4H PRN #30 tablet PRN Reason: Pain Mild (1-3) Continue hydrALAZINE TAB [Apresoline Tab] 25 mg PO BID #180 tablet Insulin Detemir [Levemir] 5 units SUBCUT QAM Atorvastatin [Lipitor] 80 mg PO BEDTIME #30 tablet Carvedilol [Coreg] 25 mg PO BID #60 tablet Lisinopril [Prinivil] 10 mg PO BID #60 tablet amLODIPine [Norvasc] 5 mg PO DAILY #30 tablet Isosorbide Mononitrate [Isosorbide Mononitrate ER] 30 mg PO DAILY Aspirin EC Tab 81 mg PO QPM Discontinued Sulfameth/Trimeth 800-160 Tab [Bactrim DS Tab] 1 tablet PO BID Guaifenesin [Guaifenesin ER] 600 mg PO BID - Follow Up or Referral Follow Up: Leif Bonds Jr., MD [Physician] - Saumya Velez DO [Physician] - (Follow up as previously scheduled.) - Forms/Instructions Exam - Constitutional Vitals: Period Temp Pulse Resp BP Sys/Batres Pulse Ox Last 24 Hr 96.8 F-97.6 F 74-86 18-20 117-175/63-81 93-97 General appearance: no acute distress - Head Head exam: Present: normal inspection, normocephalic - Eye Eye exam: Present: EOMI - Respiratory Respiratory exam: Present: clear to auscultation bilaterally - Cardiovascular Cardiovascular exam: Present: regular rate and rhythm Discharge Results Procedures and tests throughout hospitalization: Pending Orders 06/21/16 17:34 Occult Blood, Stool Routine 06/21/16 18:58 Blood Culture Stat 06/25/16 04:00 Basic Metabolic Panel IN AM Labs on day of discharge: Labs from last 24 hours 06/24/16 06/24/16 06/24/16 07:40 01:52 01:52 WBC 6.4 RBC 3.31 L Hgb 9.8 L Hct 29.8 L MCV 90.0 MCH 30 MCHC 32.9 RDW 14.0 Plt Count 306 MPV 9.7 Neut % (Auto) 46.2 Lymph % (Auto) 41.8 Price % (Auto) 6.1 Eos % (Auto) 4.7 Baso % (Auto) 0.6 Neut # (Auto) 3.0 Lymph # (Auto) 2.7 Price # (Auto) 0.4 Eos # (Auto) 0.3 Baso # (Auto) 0.0 Immature Gran % 0.6 Nucleated RBC % 0.0 Immature Gran # 0.04 Nucleated RBCs # 0.00 Sodium 143 Potassium 4.9 Chloride 112 H Carbon Dioxide 18 L Anion Gap 17.9 H BUN 43 H Creatinine 5.00 H GFR Calculation 9 BUN/Creatinine Ratio 8.00 Glucose 122 H POC Glucose 96 Calculated Osmolality 296.0 Calcium 7.1 L 06/23/16 06/23/16 06/23/16 19:05 15:37 11:52 WBC RBC Hgb Hct MCV MCH MCHC RDW Plt Count MPV Neut % (Auto) Lymph % (Auto) Price % (Auto) Eos % (Auto) Baso % (Auto) Neut # (Auto) Lymph # (Auto) Price # (Auto) Eos # (Auto) Baso # (Auto) Immature Gran % Nucleated RBC % Immature Gran # Nucleated RBCs # Sodium Potassium Chloride Carbon Dioxide Anion Gap BUN Creatinine GFR Calculation BUN/Creatinine Ratio Glucose POC Glucose 120 H 180 H 141 H Calculated Osmolality Calcium Preliminary micro results at discharge 06/21/16 18:58 Blood Culture - Preliminary Blood No growth at 1 day 06/21/16 19:03 Blood Culture - Preliminary Blood No growth at 1 day - Imaging and Cardiology Procedure: Chest x-ray: image reviewed by me, report reviewed by me DS: Provider Date of admission: 06/21/16 17:18 Primary care physician: Sina Young MD Attending physician on admission: Carlos Eduardo Cotter MD Consults: 06/21/16 18:05 Consult to Physician [CONS] Routine Comment: worsening renal failure Consulting Provider: Leif Bonds Jr. When should Consulting Provider be notified: Now Person Notified: Dr Bonds Date Notified: 06/21/16 Time Notified: 19:13 Consult Notification Comment: Spoke with Dr Bonds 06/21/16 18:50 Consult to Pharmacy [CONS] Routine Reason for Pharmacy Consult: Adjust Meds Renal Funct Discharging clinician: Carlos Eduardo Cotter MD Expected date of discharge: 06/24/16
[2016-06-24 11:14] VITALS: BP 160/77
== END 2016-06-24 11:10 | disposition home or self-care (01) | DRG 812 ==
LOC: EDUNIT# → N.ED 14:23 → N.EDINP 17:18 → N.ICU 18:12 → N.4E 06-22 10:58
PROVIDERS: ADMIT Family Medicine; ATTEND Family Medicine

== ENCOUNTER 2016-09-12 01:14 | Inpatient (IN) ==
--- NOTE | 2016-09-12 01:41 | Emergency Department Note ---
IAdalberto Gwan, am scribing for, and in the presence of, Vivian Snider DO 01:34 . ITylor Debra, DO, personally performed the services described in this documentation, ascribed by Edwin Glover in my presence, and it is both accurate and complete . Arrival - Arrival Chief Complaint: Shortness of Breath Stated Complaint: SOB ED Nursing Triage Note: TRANSFER FROM [facility], PATIENT STATES SHE HAS HAD SOB SINCE WEDNESDAY THAT HAS INCREASINGLY WORSENED WITH PRODUCTIVE COUGH. O2 SAT ON RA 92% Mode of Arrival: Stretcher Limitations: No Limitations Source: Patient, Old Records Reviewed, RN Notes Reviewed Time Seen by Provider: 09/12/16 01:22 - History of Present Illness HPI Narrative: Patient is a 45 y/o female who presents to the ED via EMS transferred from [place] for further evaluation of SOB and productive cough with an onset 3 days ago. Nurses note that pt O2 sat on room air was 92% at time of triage. Patient stated that upon onset her sxs began to worsen prompting her visit to [place]. After review, pt was prompted to report to [place] ED for further evaluation. During exam, pt does not appear to be in respiratory distress. Onset (ago): day(s) Consistency: constant Severity: moderate Allergies/Adverse Reactions: Allergies Allergy/AdvReac Type Severity Reaction Status Date / Time No Known Allergies Allergy Verified 06/21/16 14:35 Home Medications: Home Medications Medication Instructions Recorded Confirmed Type hydrALAZINE TAB [Apresoline Tab] 25 mg PO BID #180 tablet 12/01/15 06/21/16 Rx Insulin Detemir [Levemir] 5 units SUBCUT QAM 02/05/16 06/21/16 History Atorvastatin [Lipitor] 80 mg PO BEDTIME #30 tablet 02/07/16 06/21/16 Rx Carvedilol [Coreg] 25 mg PO BID #60 tablet 02/07/16 06/21/16 Rx Lisinopril [Prinivil] 10 mg PO BID #60 tablet 02/07/16 06/21/16 Rx amLODIPine [Norvasc] 5 mg PO DAILY #30 tablet 02/07/16 06/21/16 Rx Aspirin EC Tab 81 mg PO QPM 06/21/16 06/21/16 History Isosorbide Mononitrate [Isosorbide 30 mg PO DAILY 06/21/16 06/21/16 History Mononitrate ER] HYDROcodone/ACETAMIN 5-325 [[place] 1 tablet PO Q4H PRN #30 tablet 06/24/16 Rx 5-325] Review of System - Review of System 12 point system: reviewed and no additional remarkable complaints except as stated - Review of System Constitutional: Absent: chills, fever Eyes: Absent: discharge, pain Head/Ears/Nose/Throat: Absent: earache Respiratory: Present: as per HPI, cough, other (shortness of breathe ) Cardiovascular: Absent: chest pain Gastrointestinal: Absent: abdominal pain, nausea, vomiting Genitourinary female: Absent: dysuria Musculoskeletal: Absent: arm pain, back pain, leg pain, neck pain Skin: Absent: rash, lesions Neurological: Absent: headache Medical,Surgical,& Family Hx - Medical History Cardio: History of: CHF, Hypertension HEENT: History of: Ear Problem (ear infections) Respiratory: History of: Asthma Genitourinary: History of: Recurring Urinary Tract Infections Hematology: History of: Anemia - Surgical History Cardiac Surgeries: Sugical HX of: Cardiac Catheterization (january 2016) Thoracic Surgeries: Patient denies;: Lobectomy Abdominal Surgeries: Surgical HX of: Appendectomy, Cholecystectomy Reproductive Surgeries: Surgical HX of;: Section, Dilation and Curettage (May 2016) - Family History Family History: Reports;: Family Cancer (Mother), Family Diabetes (Father) - Social History Smoking Status: Former smoker Frequency of Alcohol Use: None Type of Drug Use: None Exam Vital Signs: Vital Signs Temperature 98.2 F 09/12/16 01:22 Pulse Rate 90 09/12/16 01:22 Respiratory Rate 20 09/12/16 01:22 Blood Pressure 155/69 09/12/16 01:22 O2 Sat by Pulse Oximetry 92 L 09/12/16 01:22 - General General appearance: alert, in no apparent distress - Head Head exam: Present: atraumatic, normocephalic - Eye Eye exam: Present: normal appearance, PERRL, EOMI - ENT ENT exam: Present: normal oropharynx, mucous membranes moist, TM's normal bilaterally, normal external ear exam - Neck Neck exam: Present: full ROM, trachea midline. Absent: tenderness - Chest Chest inspection: Present: symmetric chest wall rise. Absent: tenderness - Respiratory Respiratory exam: Present: rales (bilateral bases ) - Cardiovascular Cardiovascular exam: Present: tachycardia - Abdominal Exam Abdominal exam: Present: soft, normal bowel sounds. Absent: distention, tenderness - Extremities Exam Extremities exam: Present: full ROM. Absent: tenderness - Back Exam Back exam: Present: full ROM. Absent: tenderness - Neurological Exam Neurological exam: Present: alert, oriented X3, CN II-XII intact. Absent: motor sensory deficit - Psychiatric Psychiatric exam: Present: normal affect, normal mood - Skin Skin exam: Present: warm, dry, intact, normal color
[2016-09-12] MEDS ORDERED: MAGNESIUM SULF RIDER 2 GM in PREMIX 1 EACH IV PRN (01:59)
[2016-09-12] MEDS ORDERED: ALBUTEROL 2.5 MG/3 ML NEB RESP TX PRN (01:59)
[2016-09-12] MEDS ORDERED: GLUCAGON 1 MG VIAL IM PRN (01:59)
[2016-09-12] MEDS ORDERED: ONDANSETRON 4 MG/2 ML VIAL IV PRN (01:59)
[2016-09-12] MEDS ORDERED: DEXTROSE 50% 25 GM/50 ML VIAL IV PRN (01:59)
[2016-09-12] MEDS ORDERED: MAGNESIUM SULF RIDER 4 GM in PREMIX 1 EACH IV PRN (01:59)
--- NOTE | 2016-09-12 02:18 | Hospitalist History & Physical ---
Assessment and Plan (1) Pneumonia Status: Acute Current Visit: Yes (2) CHF exacerbation Status: Acute Current Visit: No (3) Elevated troponin Status: Acute Current Visit: No (4) Chronic left ventricular systolic heart failure Status: Chronic Current Visit: No (5) Renal insufficiency Status: Chronic Current Visit: No (6) Uncontrolled diabetes mellitus Status: Chronic Current Visit: No Qualifiers: Diabetes mellitus type: type 2 Diabetes mellitus complication status: with kidney complications Diabetes mellitus complication detail: with chronic kidney disease Diabetes mellitus care home insulin use: without care home use Chronic kidney disease stage: stage 2 (mild) Qualified Code(s): E11.22 - Type 2 diabetes mellitus with diabetic chronic kidney disease (7) Anemia Status: Resolved Assessment and plan: Plan for this patient. We will admit the patient our service. She will be admitted to a telemetry bed. We are going to diurese her twice daily., Consult cardiology. Per review of her x-ray there is a possible infiltrate versus pulmonary edema. I am going to treat as if she has a pneumonia. I am concerned about her kidney function creatinine is 5 at the outside facility we are going to repeat that lab this morning along with repeat troponins. BNP has been ordered is not available yet. I am going to ask nephrology to see her I am afraid that she be lost to follow-up Current Visit: No Qualifiers: Anemia type: unspecified type Qualified Code(s): D64.9 - Anemia, unspecified History of Present Illness Chief complaint: Shortness of breath cough History of present illness: Ms. Triplett is a 45 year old female with past medical history significant for diabetes, chronic kidney disease,, congestive heart failure and hypertension who was in her normal state of health until 2 days ago. Patient denies fever but states that she has had shortness of breath during this time. Patient's been having a productive cough with yellow sputum. She said she had a recent echo performed at Dr. Alanis's office. She is not very definite about going to see a kidney doctor. Her current creatinine is 5. Patient says that she feels okay as long she is not coughing. Patient went to an outside facility think it was a upper respiratory infection. She had elevated pBNP failure and was transferred to our hospital for further evaluation. I was consulted to admit the patient Home Medications Medication Instructions Recorded Confirmed Type Insulin Detemir [Levemir] 5 units SUBCUT QAM 02/05/16 09/12/16 History Atorvastatin [Lipitor] 80 mg PO BEDTIME #30 tablet 02/07/16 09/12/16 Rx Carvedilol [Coreg] 25 mg PO BID #60 tablet 02/07/16 09/12/16 Rx amLODIPine [Norvasc] 5 mg PO DAILY #30 tablet 02/07/16 09/12/16 Rx Isosorbide Mononitrate [Isosorbide 30 mg PO DAILY 06/21/16 09/12/16 History Mononitrate ER] Lisinopril [Prinivil] 20 mg PO BID 09/12/16 09/12/16 History Allergies Allergy/AdvReac Type Severity Reaction Status Date / Time No Known Allergies Allergy Verified 06/21/16 14:35 Medical,Surgical,& Family Hx - Medical History Cardio: History of: CHF, Hypertension HEENT: History of: Ear Problem (ear infections) Respiratory: History of: Asthma Genitourinary: History of: Recurring Urinary Tract Infections Hematology: History of: Anemia - Surgical History Cardiac Surgeries: Sugical HX of: Cardiac Catheterization (january 2016) Thoracic Surgeries: Patient denies;: Lobectomy Abdominal Surgeries: Surgical HX of: Appendectomy, Cholecystectomy Reproductive Surgeries: Surgical HX of;: Section, Dilation and Curettage (May 2016) - Family History Family History: Reports;: Family Cancer (Mother), Family Diabetes (Father) - Social History Smoking Status: Former smoker Frequency of Alcohol Use: None Type of Drug Use: None 12 point system: reviewed and no additional remarkable complaints except as stated Exam - Constitutional Vitals: Period Temp Pulse Resp BP Sys/Batres Pulse Ox Last 24 Hr 98.2 F-98.2 F 90-90 20-20 155-155/69-69 92 - General General appearance: alert, in no apparent distress - Head Head exam: Present: atraumatic, normocephalic - Eye Eye exam: Present: normal appearance, PERRL, EOMI - ENT ENT exam: Present: normal oropharynx, mucous membranes moist, TM's normal bilaterally, normal external ear exam - Neck Neck exam: Present: full ROM, trachea midline. - Chest Chest inspection: Present: symmetric chest wall rise. Absent: tenderness - Respiratory Respiratory exam: Present: rales (bilateral bases ) - Cardiovascular Cardiovascular exam: Present: tachycardia - Abdominal Exam Abdominal exam: Present: soft, normal bowel sounds. - Extremities Exam Extremities exam: Present: full ROM. Absent: tenderness - Back Exam Back exam: Present: full ROM. Absent: tenderness - Neurological Exam Neurological exam: Present: alert, oriented X3, CN II-XII intact. - Psychiatric Psychiatric exam: Present: normal affect, normal mood - Skin Skin exam: Present: warm, dry, intact, normal color Results - Labs Labs: Labs from outside facility white count 8.4 hemoglobin 8.4 hematocrit 26 platelets 226 sodium 143 potassium 5.1 chloride 114 bicarb 18 calcium 7.1 BUN 61 creatinine 5.0 glucose 96 PT 14.4 INR 1.12 magnesium 1.6 CK was 1484 CK PT was 14 proBNP was 15 12/20/1985 PT is 46 troponin 0.253
[2016-09-12 02:54] LABS: CKMB % 1.1 %
[2016-09-12 02:56] LABS: Troponin I Only 0.25 NG/ML (0.00-0.045)
[2016-09-12] MEDS: cefTRIAXone 1,000 MG in SODIUM CHLORIDE 0.9% 100 ML IV SCH (04:32)
[2016-09-12] MEDS: AZITHROMYCIN INJ 500 MG in SODIUM CHLORIDE 0.9% 250 ML IV SCH (05:09)
[2016-09-12] MEDS: ALBUTEROL/IPRATROPIUM 3 ML NEB RESP TX SCH ×3 (07:01→19:08)
[2016-09-12 07:54] LABS: Basophils # 0.1 10*3/uL (0.0-0.2); Basophils % 0.7 % (0.0-0.8); Eosinophils # 0.5 10*3/uL (0.0-0.87); Eosinophils % 6.4 % (0.00-10.9); Hematocrit 24.6 VOL% (35.7-47.0); Immature Granulocytes % 0.4 %; Immature Granulocytes Absolute 0.03 #; Lymphocytes # 2.1 10*3/uL (1.4-4.0); Lymphocytes % 30.5 % (21.3-54.2); Mean Corpuscular HGB Conc 32.5 GM/DL (32-36); Mean Corpuscular Hemoglobin 30 PG (27-34); Mean Corpuscular Volume 91.4 FL (87-102); Mean Platelet Volume 10.3 FL (9.6-12.0); Monocytes # 0.5 10*3/uL (0.11-0.8); Monocytes % 6.4 % (1.7-12.7); Neutrophils # 3.9 10*3/uL (1.4-7.4); Neutrophils % 55.6 % (38.7-73.9); Platelet Count 196 T/CUMM (130-400); Red Blood Count 2.69 MC/CUMM (3.8-5.5); Red Cell Distribution Width 15.7 % (9.3-17.3)
[2016-09-12 08:22] LABS: Calcium 6.6 MG/DL (8.5-10.1); Osmolality,Calculated 305.6 MOS/KG (273-304); Potassium 4.8 MMOL/L (3.5-5.1)
[2016-09-12] MEDS: INSULIN REGULAR 100 UNIT/ML SUBCUT SCH ×4 (08:45→20:32)
[2016-09-12 08:47] LABS: Troponin I Only 0.222 NG/ML (0.00-0.045)
[2016-09-12] MEDS: PANTOPRAZOLE 40 MG TABLET PO SCH (08:52)
[2016-09-12] MEDS: CARVEDILOL 25 MG TABLET PO SCH ×2 (08:52→20:32)
[2016-09-12] MEDS: amLODIPine 5 MG TABLET PO SCH (08:52)
[2016-09-12] MEDS: FUROSEMIDE 40 MG/4 ML VIAL IV SCH ×2 (08:52→19:02)
[2016-09-12] MEDS: ISOSORBIDE MONONITRATE 30 MG TABLET PO SCH (08:52)
[2016-09-12] MEDS: ASPIRIN CHEW 81 MG TABLET PO SCH (08:52)
[2016-09-12] MEDS: ENOXAPARIN 30 MG/0.3 ML SYRINGE SUBCUT SCH (11:27)
--- NOTE | 2016-09-12 11:38 | EKG Report ---
Stationary ECG Study [facility] ER Test Date: 09/12/2016 1:23:29 AM Pat Name: BRET AQUINO Department: Room: 283 Gender: F Pocket Operator: JASPER : 1970 Requested by: Vivian Snider Order Number: [id number] Reading MD: BOLA GABRIEL Intervals [place] Rate: 86 P: 58 NE: 127 QRS: 75 QRSD: 85 T: 101 QT: 378 QTc: 422 Interpretive Statements SINUS RHYTHM Electronically Signed On 09-13-16 16:42:01 CDT by BOLA GABRIEL [email or web address]
[2016-09-12] MEDS ORDERED: SODIUM CHLORIDE 0.9% 250 ML IV PRN (11:46)
[2016-09-12] MEDS ORDERED: CALCIUM GLUCONATE 2,000 MG in SODIUM CHLORIDE 0.9% 100 ML IV ONE (11:49)
--- NOTE | 2016-09-12 11:50 | Hospitalist Progress Note ---
Assessment and Plan (1) Malignant hypertension Status: Acute Assessment and plan: Not well controlled, start hydralazine 25 mg p.o. 3 times daily. Continue Norvasc 5 mg daily and Coreg 25 mg p.o. twice daily. Would avoid ANDREZ and arb due to renal failure. Current Visit: No (2) Uncontrolled diabetes mellitus Status: Chronic Assessment and plan: Blood sugars are running low hold insulin Current Visit: No Qualifiers: Diabetes mellitus type: type 2 Diabetes mellitus complication status: with kidney complications Diabetes mellitus complication detail: with chronic kidney disease Diabetes mellitus terminal system operator insulin use: without terminal system operator use Chronic kidney disease stage: stage 2 (mild) Qualified Code(s): E11.22 - Type 2 diabetes mellitus with diabetic chronic kidney disease (3) Cardiomyopathy Status: Acute Assessment and plan: Patient has known cardiomyopathy with EF of 35%. Current Visit: No (4) Anemia Status: Resolved Assessment and plan: We will give 2 units of packed red blood cells. Give Lasix between each unit. Guaiac stools. Continue Protonix Current Visit: No Qualifiers: Anemia type: unspecified type Qualified Code(s): D64.9 - Anemia, unspecified (5) CHF exacerbation Status: Acute Assessment and plan: Last echocardiogram was in June 2016 with an EF of 35%. Cardiology consulted. Continue Lasix 80 mg IV twice daily Current Visit: No (6) Acute on chronic renal failure Status: Chronic Assessment and plan: Continue to monitor while on diuresis, Dr. Chance seen patient now. Patient's baseline creatinine is about 4.8. Current Visit: No (7) Pneumonia Status: Acute Assessment and plan: Repeat chest x-ray here, continue Rocephin and azithromycin Current Visit: Yes Hospitalist: Subjective Interval history: Both cardiology and renal have been consulted. I am concerned about her being so young and having this many medical problems. Patient is very sleepy today she said she hardly got any sleep last night. We need to put her on a fluid and salt restriction. Exam - Constitutional Vitals: Period Temp Pulse Resp BP Sys/Batres Pulse Ox Last 24 Hr 97.9 F-98.6 F 78-90 18-20 151-164/69-87 91-100 Exam: Heart Rate-[RRR] Lungs-[bilateral crackles] GI-[+bs soft, NT] Ext-[no edema] Neuro [Motor 5/5], [alert and oriented times 2] psych [depressed mood and affect] General [no acute distress] Results - Labs CBC & BMP: 09/12/16 07:23 09/12/16 07:23 Lab Results: I have reviewed the past 24 hour labs
--- NOTE | 2016-09-12 11:52 | Nephrology Consult Note ---
History of Present Illness Chief complaint: CKD Stage 4 History of present illness: Ms. Triplett is a 45 year old female with known chronic renal failure due to diabetic nephropathy. She presented to the [facility] emergency room with cough and shortness of breath and was referred here with an elevated BNP and mild elevation in troponin. Blood pressures been fairly well controlled. She was seen by Dr. Braden here in June with a creatinine of 4.9 and discharged with a creatinine of 5.0. Today's creatinine is 5.1. Chest x-ray is not available for review and was mated [facility]. She does have significant peripheral edema of the legs and sacral edema she also has decreased breath sounds over the bases with crackles at the bases. She has a dry cough. Impression shortness of breath and edema due to volume overload #2 history of cardiomyopathy with 35-40% ejection fraction #3 diabetes mellitus #4 history of hypertension #5 chronic renal impairment CKD 4. Plan I agree with plan for intravenous furosemide for diuresis. Will get a chest x-ray tomorrow to evaluate lung water. Home Medications Medication Instructions Recorded Confirmed Type Insulin Detemir [Levemir] 5 units SUBCUT QAM 02/05/16 09/12/16 History Atorvastatin [Lipitor] 80 mg PO BEDTIME #30 tablet 02/07/16 09/12/16 Rx Carvedilol [Coreg] 25 mg PO BID #60 tablet 02/07/16 09/12/16 Rx amLODIPine [Norvasc] 5 mg PO DAILY #30 tablet 02/07/16 09/12/16 Rx Isosorbide Mononitrate [Isosorbide 30 mg PO DAILY 06/21/16 09/12/16 History Mononitrate ER] Lisinopril [Prinivil] 20 mg PO BID 09/12/16 09/12/16 History Allergies Allergy/AdvReac Type Severity Reaction Status Date / Time No Known Allergies Allergy Verified 06/21/16 14:35 Medical,Surgical,& Family Hx - Medical History Cardio: History of: CHF, Hypertension, NE HEENT: History of: Ear Problem (ear infections) Endocrine: History of: Diabetes Mellitus (IDDM) Respiratory: History of: Asthma Genitourinary: History of: Recurring Urinary Tract Infections Hematology: History of: Anemia - Surgical History Cardiac Surgeries: Sugical HX of: Cardiac Catheterization (january 2016) Thoracic Surgeries: Patient denies;: Lobectomy Abdominal Surgeries: Surgical HX of: Appendectomy, Cholecystectomy Reproductive Surgeries: Surgical HX of;: Section, Dilation and Curettage (May 2016) - Family History Family History: Reports;: Family Cancer (Mother), Family Diabetes (Father) - Social History Smoking Status: Former smoker Frequency of Alcohol Use: None Type of Drug Use: None Review of Systems 12 point system: reviewed and no additional remarkable complaints except as stated Exam - Vital Signs Vital signs: Period Temp Pulse Resp BP Sys/Batres Pulse Ox Last 24 Hr 97.9 F-98.6 F 78-90 18-20 151-164/69-87 91-100 - General Appearance General appearance: well-developed, well-nourished, appears started age EENT: ATNC Neck: no JVD, no thyromegaly, no carotid bruit, supple Respiratory: no kyphosis, no scoliosis Cardiology: no murmurs, no rub, no gallops, no edema, regular rate, regular rhythm, normal S1, normal S2 Gastrointestinal: normoactive bowel sounds Integumentary: no rash, warm and dry Neurologic: no focal deficit, no asterixis, alert and oriented x3, reflexes 2+ and symmetric, gait normal, strength 5/5 Musculoskeletal: no deformities, no erythema, no cyanosis, no clubbing Psychiatric: mood/affect appropriate, cooperative Results - Labs CBC & BMP: 09/12/16 07:23 09/12/16 07:23 Assessment and Plan - Time spent with patient Time spent with patient: Greater than 30 minutes Specialty Discharge - Follow Up or Referrals - Speciality Discharge Instructions Nephrology Instructions: We will check an iron and iron-binding capacity to make certain iron deficiency is not complicating her anemia of chronic disease. Chest x-ray tomorrow. Diuresis as you are doing.
[2016-09-12 12:44] LABS: % Iron Saturation 14.9 % (18-50)
[2016-09-12] MEDS: CALCIUM CARBONATE CHEW 500 MG TABLET PO SCH ×2 (13:19→20:32)
--- NOTE | 2016-09-12 13:58 | Cardiology Consult Note ---
Assessment and Plan (1) Pneumonia Status: Acute Current Visit: Yes (2) CHF exacerbation Status: Acute Current Visit: No Qualifiers: Congestive heart failure type: systolic Qualified Code(s): I50.23 - Acute on chronic systolic (congestive) heart failure (3) Pericardial effusion Status: Chronic Current Visit: Yes (4) Cardiomyopathy Status: Chronic Current Visit: No (5) Diabetes Status: Chronic Current Visit: No Qualifiers: Diabetes mellitus type: other specified (including MELANIA) Diabetes mellitus complication status: with kidney complications Chronic kidney disease stage: stage 3 (moderate) (6) Hypertension Status: Chronic Current Visit: No Qualifiers: Hypertension type: essential hypertension Qualified Code(s): I10 - Essential (primary) hypertension (7) Renal insufficiency Status: Chronic Current Visit: No (8) Anemia Status: Chronic Current Visit: No Qualifiers: Anemia type: unspecified type Qualified Code(s): D64.9 - Anemia, unspecified History of Present Illness - Data of Consult Patient: known to practice within the last 3 years Consult date: 09/12/16 Requesting Physician: Lucy Santana - Consult Narrative Reason for consult: sob History of present illness: Grout Machine Operator: Dr. Velez Ms. Triplett is a 45 year old female with a history of mixed cardiomyopathy, both ischemic and nonischemic. History of cardiac catheterization January 2016 demonstrating LAD with 50-60% focal distal stenosis, small vessel intermediate ramus with 60-70% stenosis. She also has a history of chronic renal insufficiency, diabetes mellitus, dyslipidemia, hypertension. She was recently evaluated in clinic by Dr. Velez on September 04 at which time her hydralazine was stopped due to a pericardial effusion seen on echo. Her lisinopril was increased to 20 mg twice daily. Echocardiogram performed August 31, 2016 demonstrated ejection fraction 40%, moderate mitral regurgitation, moderate tricuspid regurgitation, diastolic dysfunction, moderate size pericardial effusion. She came to the emergency room with complaints of shortness of breath and worsening edema. Symptoms have been progressive over a few days. She has also developed a cough that is productive of yellow colored sputum. She denies fevers or chills. She has had some chronic lower extremity edema that is unchanged. She denies any chest pain. Impression and plan: 1. Shortness of breath-this may be multifactorial and include bronchitis as well as congestive heart failure. She will be treated for both. 2. Congestive heart failure-this is acute on chronic secondary to systolic dysfunction. She will be treated with medical therapy, diuresed. 3. Pericardial effusion-this was noted on echocardiogram August 31, 2016. Dr. Alanis has been monitoring this. 4. Renal insufficiency-chronicity and baseline are unknown, nephrology is following. 5. Coagulopathy-this is mixed ischemic and nonischemic. 6. Coronary artery disease-she does not appear to be having acute coronary syndrome. CC: Lucy Santana MD - Home Medications and Allergies Home Medications: Home Medications Medication Instructions Recorded Confirmed Type Insulin Detemir [Levemir] 5 units SUBCUT QAM 02/05/16 09/12/16 History Atorvastatin [Lipitor] 80 mg PO BEDTIME #30 tablet 02/07/16 09/12/16 Rx Carvedilol [Coreg] 25 mg PO BID #60 tablet 02/07/16 09/12/16 Rx amLODIPine [Norvasc] 5 mg PO DAILY #30 tablet 02/07/16 09/12/16 Rx Isosorbide Mononitrate [Isosorbide 30 mg PO DAILY 06/21/16 09/12/16 History Mononitrate ER] Lisinopril [Prinivil] 20 mg PO BID 09/12/16 09/12/16 History Allergies/Adverse Reactions: Allergies Allergy/AdvReac Type Severity Reaction Status Date / Time No Known Allergies Allergy Verified 06/21/16 14:35 12 point system: reviewed and no additional remarkable complaints except as stated Medical,Surgical,& Family Hx - Medical History Cardio: History of: CHF, Hypertension, IN HEENT: History of: Ear Problem (ear infections) Endocrine: History of: Diabetes Mellitus (IDDM) Respiratory: History of: Asthma Genitourinary: History of: Recurring Urinary Tract Infections Hematology: History of: Anemia - Surgical History Cardiac Surgeries: Sugical HX of: Cardiac Catheterization (january 2016) Thoracic Surgeries: Patient denies;: Lobectomy Abdominal Surgeries: Surgical HX of: Appendectomy, Cholecystectomy Reproductive Surgeries: Surgical HX of;: Section, Dilation and Curettage (May 2016) - Family History Family History: Reports;: Family Cancer (Mother), Family Diabetes (Father) - Social History Smoking Status: Former smoker Frequency of Alcohol Use: None Type of Drug Use: None Physical Examination Vital Signs Temp Pulse Resp BP Pulse Ox 98.2 F 90 20 155/69 92 L 09/12/16 01:22 09/12/16 01:22 09/12/16 01:22 09/12/16 01:22 09/12/16 01:22 Other: General appearance: normal weight, no acute distress - Head Head exam: Present: normal inspection, normocephalic, atraumatic. Absent: hematoma, laceration - Eye Eye exam: Present: EOMI. Absent: conjunctival injection, nystagmus, periorbital swelling, scleral icterus, laceration to eyelids Pupils: Present: PERRL. Absent: constricted, dilated, fixed, irregular, unequal - ENT ENT exam: Present: normal exam, normal external ear exam - Neck Neck exam: Present: normal inspection. Absent: lymphadenopathy, meningismus, tenderness, thyromegaly - Respiratory Respiratory exam: Present: Crackles in the left base and middle lobe. Absent: accessory muscle use, chest wall tenderness - Cardiovascular Cardiovascular exam: Present: regular rate and rhythm. Absent: carotid bruit, gallop, JVD, rubs - GI/Abdominal GI/Abdominal exam: Present: normal bowel sounds, soft. Absent: distended, firm , guarding, hernia, mass, tenderness, rebound. - Extremities Exam Extremities exam: Present: 1-2+ bilateral lower extremity edema. Absent: calf tenderness - Back Exam Back exam: Present: normal inspection. Absent: muscle spasm, vertebral tenderness - Neurological Exam Neurological exam: Present: alert, oriented X3, grossly intact without resting or intention tremor - Psychiatric Psychiatric exam: Present: normal affect, normal mood - Skin Skin exam: Present: normal color, warm, dry, intact. Absent: cyanosis, diaphoretic, rash, urticaria crackles in the left base and middle lobe Result/EKG - Labs CBC & BMP: 09/12/16 07:23 09/12/16 07:23 Lab Results: I have reviewed the past 24 hour labs Labs: Laboratory Results - last 24 hr 09/12/16 09/12/16 09/12/16 02:04 02:04 04:07 WBC RBC Hgb Hct MCV MCH MCHC RDW Plt Count MPV Neut % (Auto) Lymph % (Auto) [place] % (Auto) Eos % (Auto) Baso % (Auto) Neut # (Auto) Lymph # (Auto) [place] # (Auto) Eos # (Auto) Baso # (Auto) Immature Gran % Nucleated RBC % Immature Gran # Nucleated RBCs # Sodium Potassium Chloride Carbon Dioxide Anion Gap BUN Creatinine GFR Calculation BUN/Creatinine Ratio Glucose POC Glucose 90 Calculated Osmolality Calcium Magnesium Iron TIBC % Saturation Total Creatine Kinase 1415 H CK-MB (CK-2) 14.9 H CK and CKMB Interp 1.1 Troponin I 0.250 H B-Natriuretic Peptide 1291 H Blood Type Antibody Screen Crossmatch 09/12/16 09/12/16 09/12/16 07:23 07:23 07:23 WBC 7.0 RBC 2.69 L Hgb 8.0 L Hct 24.6 L MCV 91.4 MCH 30 MCHC 32.5 RDW 15.7 Plt Count 196 MPV 10.3 Neut % (Auto) 55.6 Lymph % (Auto) 30.5 [place] % (Auto) 6.4 Eos % (Auto) 6.4 Baso % (Auto) 0.7 Neut # (Auto) 3.9 Lymph # (Auto) 2.1 [place] # (Auto) 0.5 Eos # (Auto) 0.5 Baso # (Auto) 0.1 Immature Gran % 0.4 Nucleated RBC % 0.0 Immature Gran # 0.03 Nucleated RBCs # 0.00 Sodium 146 H Potassium 4.8 Chloride 119 H Carbon Dioxide 16 L Anion Gap 15.8 H BUN 61 H Creatinine 5.10 H GFR Calculation 9 BUN/Creatinine Ratio 11.00 Glucose 80 POC Glucose Calculated Osmolality 305.6 H Calcium 6.6 L Magnesium Iron TIBC % Saturation Total Creatine Kinase 1122 H D CK-MB (CK-2) 11.3 H CK and CKMB Interp 1.0 Troponin I 0.222 H B-Natriuretic Peptide Blood Type Antibody Screen Crossmatch 09/12/16 09/12/16 09/12/16 12:05 12:05 12:05 WBC RBC Hgb Hct MCV MCH MCHC RDW Plt Count MPV Neut % (Auto) Lymph % (Auto) [place] % (Auto) Eos % (Auto) Baso % (Auto) Neut # (Auto) Lymph # (Auto) [place] # (Auto) Eos # (Auto) Baso # (Auto) Immature Gran % Nucleated RBC % Immature Gran # Nucleated RBCs # Sodium Potassium Chloride Carbon Dioxide Anion Gap BUN Creatinine GFR Calculation BUN/Creatinine Ratio Glucose POC Glucose Calculated Osmolality Calcium Magnesium 1.6 L Iron 25 L TIBC 168 L % Saturation 14.9 L Total Creatine Kinase CK-MB (CK-2) CK and CKMB Interp Troponin I B-Natriuretic Peptide Blood Type O POSITIVE Antibody Screen Negative Crossmatch See Detail - EKG EKG results: interpreted by me, sinus rhythm, no acute changes
--- NOTE | 2016-09-12 14:05 | XRay Report ---
History: Shortness of breath Date: 09/12/2016 Study: Chest x-ray AP portable Comparison exam: Outside chest x-ray from [place], [place] 09/11/2016 There is continued cardiomegaly. The pulmonary vasculature is slightly prominent. There is some patchy and hazy edema in the mid to lower lungs bilaterally, perhaps minimally increased. There is mild left-sided pleural effusion. The osseous structures are unchanged. Impression: Cardiomegaly and evidence of CHF with pulmonary edema, mildly worsened compared to the previous study PROCEDURE INTERPRETED AT [facility] DEPARTMENT OF RADIOLOGY Final Report Signed by: Dr. Natalie Ware
[2016-09-12] MEDS: hydrALAZINE 25 MG TABLET PO SCH ×2 (15:47→20:32)
[2016-09-12] MEDS: ATORVASTATIN 80 MG TABLET PO SCH (20:32)
[2016-09-13] MEDS: ALBUTEROL/IPRATROPIUM 3 ML NEB RESP TX SCH ×4 (00:03→20:02)
[2016-09-13 01:32] LABS: Basophils % 0.5 % (0.0-0.8); Eosinophils # 0.4 10*3/uL (0.0-0.87); Eosinophils % 4.7 % (0.00-10.9); Hemoglobin 9.8 GM/DL (12.0-16.0); Immature Granulocytes % 0.5 %; Immature Granulocytes Absolute 0.04 #; Lymphocytes # 1.7 10*3/uL (1.4-4.0); Lymphocytes % 21.2 % (21.3-54.2); Mean Corpuscular HGB Conc 33.8 GM/DL (32-36); Mean Corpuscular Hemoglobin 30 PG (27-34); Mean Corpuscular Volume 89.2 FL (87-102); Mean Platelet Volume 10.3 FL (9.6-12.0); Monocytes # 0.6 10*3/uL (0.11-0.8); Monocytes % 7.2 % (1.7-12.7); Neutrophils # 5.4 10*3/uL (1.4-7.4); Neutrophils % 65.9 % (38.7-73.9); Platelet Count 167 T/CUMM (130-400); Red Blood Count 3.25 MC/CUMM (3.8-5.5); Red Cell Distribution Width 15.3 % (9.3-17.3); White Blood Count 8.1 T/CUMM (4-12)
[2016-09-13 01:46] LABS: Calcium 6.8 MG/DL (8.5-10.1); Magnesium 1.7 MG/DL (1.8-2.4); Osmolality,Calculated 306.7 MOS/KG (273-304); Potassium 4.6 MMOL/L (3.5-5.1)
[2016-09-13] MEDS: cefTRIAXone 1,000 MG in SODIUM CHLORIDE 0.9% 100 ML IV SCH (04:09)
[2016-09-13] MEDS: AZITHROMYCIN INJ 500 MG in SODIUM CHLORIDE 0.9% 250 ML IV SCH (05:00)
[2016-09-13] MEDS: hydrALAZINE 25 MG TABLET PO SCH ×3 (08:57→20:03)
[2016-09-13] MEDS: amLODIPine 5 MG TABLET PO SCH (08:57)
[2016-09-13] MEDS: ISOSORBIDE MONONITRATE 30 MG TABLET PO SCH (08:57)
[2016-09-13] MEDS: ASPIRIN CHEW 81 MG TABLET PO SCH (08:57)
[2016-09-13] MEDS: FUROSEMIDE 40 MG/4 ML VIAL IV SCH ×2 (08:58→16:17)
[2016-09-13] MEDS: ENOXAPARIN 30 MG/0.3 ML SYRINGE SUBCUT SCH (08:58)
[2016-09-13] MEDS: CALCIUM CARBONATE CHEW 500 MG TABLET PO SCH ×2 (08:58→20:02)
[2016-09-13] MEDS: CARVEDILOL 25 MG TABLET PO SCH ×2 (08:58→20:03)
[2016-09-13] MEDS: PANTOPRAZOLE 40 MG TABLET PO SCH (09:00)
[2016-09-13] MEDS: INSULIN REGULAR 100 UNIT/ML SUBCUT SCH ×4 (09:12→20:03)
--- NOTE | 2016-09-13 10:37 | Hospitalist Progress Note ---
Assessment and Plan (1) Malignant hypertension Status: Acute Assessment and plan: Not controlled with hydralazine, Norvasc and Coreg. We will increase hydralazine 50 mg. Current Visit: No (2) Uncontrolled diabetes mellitus Status: Chronic Assessment and plan: Blood sugars are running low hold insulin Current Visit: No Qualifiers: Diabetes mellitus type: type 2 Diabetes mellitus complication status: with kidney complications Diabetes mellitus complication detail: with chronic kidney disease Diabetes mellitus rn long term care insulin use: without residential use Chronic kidney disease stage: stage 2 (mild) Qualified Code(s): E11.22 - Type 2 diabetes mellitus with diabetic chronic kidney disease (3) Cardiomyopathy Status: Chronic Assessment and plan: Patient has known cardiomyopathy with EF of 35%. Current Visit: No (4) Anemia Status: Chronic Assessment and plan: guaiac stool, hgb better, Current Visit: No Qualifiers: Anemia type: unspecified type Qualified Code(s): D64.9 - Anemia, unspecified (5) CHF exacerbation Status: Acute Assessment and plan: Last echocardiogram was in June 2016 with an EF of 35%. Continue Lasix 80 mg IV twice daily, need byrd Current Visit: No Qualifiers: Congestive heart failure type: systolic Qualified Code(s): I50.23 - Acute on chronic systolic (congestive) heart failure (6) Acute on chronic renal failure Status: Chronic Assessment and plan: Continue to monitor while on diuresis, unchanged, Dr. Chance following Current Visit: No (7) Pneumonia Status: Acute Assessment and plan: dont think she has pneumonia, will stop abx Current Visit: Yes Hospitalist: Subjective Interval history: Patient is urinating into the toilet. I need to track her urine. We need to place a Byrd today. Patient still rather sleepy. I told her to wake up and eat her breakfast and her son was can help her. Exam - Constitutional Vitals: Period Temp Pulse Resp BP Sys/Batres Pulse Ox Last 24 Hr 97.7 F-100.5 F 80-111 15-20 116-169/73-89 90-99 Exam: Heart Rate-[RRR] Lungs-[bilateral crackles a little better today.] GI-[+bs soft, NT] Ext-[no edema] Neuro [Motor 5/5], [alert and oriented times 2] psych [depressed mood and affect] General [no acute distress] Results - Labs CBC & BMP: 09/13/16 01:11 09/13/16 01:11 Lab Results: I have reviewed the past 24 hour labs Labs: Blood cultures 2 negative - Diagnostic Findings Procedure: Chest x-ray: report reviewed by me (CHF, CM )
--- NOTE | 2016-09-13 10:49 | Nephrology Progress Note ---
Nephrology - PN: Subj Interval history: Ms. Triplett is seen in follow-up of her renal failure and significant fluid overload. She says that she is experiencing some diaphoresis but still has considerable edema. She is status post transfusion. She is iron deficient with a low iron saturation. We will add metolazone 5 mg daily to her 80 mg Lasix twice daily. She will benefit from iron supplementation and we will give that intravenously. Exam (PN)-Nephrology - Vital Signs Vital signs: Period Temp Pulse Resp BP Sys/Batres Pulse Ox Last 24 Hr 97.7 F-100.5 F 80-111 15-20 116-169/73-89 90-99 - Lab 09/13/16 01:11 09/13/16 01:11 Most recent lab results Calcium 6.8 MG/DL (8.5-10.1) L 09/13/16 01:11 Magnesium 1.7 MG/DL (1.8-2.4) L 09/13/16 01:11
[2016-09-13] MEDS ORDERED: MAGNESIUM SULF RIDER 2 GM in PREMIX 1 EACH IV ONE (11:00)
[2016-09-13] MEDS: metOLazone 5 MG TABLET PO SCH (12:03)
--- NOTE | 2016-09-13 12:16 | Cardiology Progress Note ---
Assessment and Plan (1) Pneumonia Status: Acute Current Visit: Yes (2) CHF exacerbation Status: Acute Current Visit: No Qualifiers: Congestive heart failure type: systolic Qualified Code(s): I50.23 - Acute on chronic systolic (congestive) heart failure (3) Pericardial effusion Status: Chronic Current Visit: Yes (4) Cardiomyopathy Status: Chronic Current Visit: No (5) Diabetes Status: Chronic Current Visit: No Qualifiers: Diabetes mellitus type: other specified (including MELANIA) Diabetes mellitus complication status: with kidney complications Chronic kidney disease stage: stage 3 (moderate) (6) Hypertension Status: Chronic Current Visit: No Qualifiers: Hypertension type: essential hypertension Qualified Code(s): I10 - Essential (primary) hypertension (7) Renal insufficiency Status: Chronic Current Visit: No (8) Anemia Status: Chronic Current Visit: No Qualifiers: Anemia type: unspecified type Qualified Code(s): D64.9 - Anemia, unspecified Cardiology - PN: Subj Interval history: Supervisor Doping: Dr. Velez Summary: Ms. Triplett is a 45 year old female with a history of mixed cardiomyopathy, both ischemic and nonischemic. History of cardiac catheterization January 2016 demonstrating LAD with 50-60% focal distal stenosis , small vessel intermediate ramus with 60-70% stenosis. She also has a history of chronic renal insufficiency, diabetes mellitus, dyslipidemia, hypertension. She was recently evaluated in clinic by Dr. Velez on September 04 at which time her hydralazine was stopped due to a pericardial effusion seen on echo. Her lisinopril was increased to 20 mg twice daily. Echocardiogram performed August demonstrated ejection fraction 40%, moderate mitral regurgitation, moderate tricuspid regurgitation, diastolic dysfunction, moderate size pericardial effusion. She was admitted to the hospital with worsening shortness of breath, edema, cough. September 13, 2016: Overall evening was uneventful. She is feeling better today, has improved breathing. She denies any chest pain. Blood pressure continues to be suboptimally controlled although it is improved. Impression and plan: 1. Shortness of breath-this may be multifactorial and include bronchitis as well as congestive heart failure. She will be treated for both. Clinically this is improving. 2. Congestive heart failure-this is acute on chronic secondary to systolic dysfunction. She will be treated with medical therapy, diuresed. 3. Pericardial effusion-this was noted on echocardiogram August 31, 2016. Hydralazine had been stopped as an outpatient out of concern this could be contributing to the effusion, although it may be from her significant renal insufficiency. We will have to monitor for this now that her hydralazine has been restarted and increased. 4. Renal insufficiency-chronicity and baseline are unknown, nephrology is following. 5. Cardiomyopathy-this is mixed ischemic and nonischemic. 6. Coronary artery disease-she does not appear to be having acute coronary syndrome. Exam (Progress Note) - Constitutional Vitals: Period Temp Pulse Resp BP Sys/Batres Pulse Ox Last 24 Hr 97.7 F-100.5 F 80-111 15-20 116-169/77-89 90-99 Exam: General appearance: normal weight, no acute distress - Head Head exam: Present: normal inspection, normocephalic, atraumatic. Absent: hematoma, laceration - Eye Eye exam: Present: EOMI. Absent: conjunctival injection, nystagmus, periorbital swelling, scleral icterus, laceration to eyelids Pupils: Present: PERRL. Absent: constricted, dilated, fixed, irregular, unequal - ENT ENT exam: Present: normal exam, normal external ear exam - Neck Neck exam: Present: normal inspection. Absent: lymphadenopathy, meningismus, tenderness, thyromegaly - Respiratory Respiratory exam: Present: Crackles in the left base. Absent: accessory muscle use, chest wall tenderness - Cardiovascular Cardiovascular exam: Present: regular rate and rhythm. Absent: carotid bruit, gallop, JVD, rubs - GI/Abdominal GI/Abdominal exam: Present: normal bowel sounds, soft. Absent: distended, firm , guarding, hernia, mass, tenderness, rebound. - Extremities Exam Extremities exam: Present: 1+ bilateral lower extremity edema. Absent: calf tenderness - Back Exam Back exam: Present: normal inspection. Absent: muscle spasm, vertebral tenderness - Neurological Exam Neurological exam: Present: alert, oriented X3, grossly intact without resting or intention tremor - Psychiatric Psychiatric exam: Present: normal affect, normal mood - Skin Skin exam: Present: normal color, warm, dry, intact. Absent: cyanosis, diaphoretic, rash, urticaria crackles in the left base and middle lobe Result/EKG - Labs CBC & BMP: 09/13/16 01:11 09/13/16 01:11 Lab Results: I have reviewed the past 24 hour labs Labs: Laboratory Results - last 24 hr 09/12/16 09/12/16 09/12/16 07:42 11:21 12:05 WBC RBC Hgb Hct MCV MCH MCHC RDW Plt Count MPV Neut % (Auto) Lymph % (Auto) [place] % (Auto) Eos % (Auto) Baso % (Auto) Neut # (Auto) Lymph # (Auto) [place] # (Auto) Eos # (Auto) Baso # (Auto) Immature Gran % Nucleated RBC % Immature Gran # Nucleated RBCs # Sodium Potassium Chloride Carbon Dioxide Anion Gap BUN Creatinine GFR Calculation BUN/Creatinine Ratio Glucose POC Glucose 124 H 133 H Calculated Osmolality Calcium Magnesium Iron TIBC % Saturation Blood Type O POSITIVE Antibody Screen Negative Crossmatch See Detail 09/12/16 09/12/16 09/12/16 12:05 12:05 16:03 WBC RBC Hgb Hct MCV MCH MCHC RDW Plt Count MPV Neut % (Auto) Lymph % (Auto) [place] % (Auto) Eos % (Auto) Baso % (Auto) Neut # (Auto) Lymph # (Auto) [place] # (Auto) Eos # (Auto) Baso # (Auto) Immature Gran % Nucleated RBC % Immature Gran # Nucleated RBCs # Sodium Potassium Chloride Carbon Dioxide Anion Gap BUN Creatinine GFR Calculation BUN/Creatinine Ratio Glucose POC Glucose 181 H Calculated Osmolality Calcium Magnesium 1.6 L Iron 25 L TIBC 168 L % Saturation 14.9 L Blood Type Antibody Screen Crossmatch 09/12/16 09/13/16 09/13/16 19:42 01:11 01:11 WBC 8.1 RBC 3.25 L D Hgb 9.8 L D Hct 29.0 L MCV 89.2 MCH 30 MCHC 33.8 RDW 15.3 Plt Count 167 MPV 10.3 Neut % (Auto) 65.9 Lymph % (Auto) 21.2 L [place] % (Auto) 7.2 Eos % (Auto) 4.7 Baso % (Auto) 0.5 Neut # (Auto) 5.4 Lymph # (Auto) 1.7 [place] # (Auto) 0.6 Eos # (Auto) 0.4 Baso # (Auto) 0.0 Immature Gran % 0.5 Nucleated RBC % 0.0 Immature Gran # 0.04 Nucleated RBCs # 0.00 Sodium 145 Potassium 4.6 Chloride 118 H Carbon Dioxide 16 L Anion Gap 15.6 H BUN 62 H Creatinine 5.20 H GFR Calculation 8 BUN/Creatinine Ratio 11.00 Glucose 122 H POC Glucose 243 H Calculated Osmolality 306.7 H Calcium 6.8 L Magnesium 1.7 L Iron TIBC % Saturation Blood Type Antibody Screen Crossmatch
[2016-09-13 12:38] LABS: Apearance,Urine CLEAR (Clear); Bacteria,Urine Few /HPF (Few); Bilirubin,Urine Negative (Negative); Blood, Urine Negative (Negative); Glucose,Urine (UA) 150 mg/dL (Negative); Ketones,Urine Negative (Negative); Mucus,Urine Occasional /LPF (Occasional); Nitrite,Urine Negative (Negative); Protein,Urine 100 MG/DL; RBC,Urine 4 /HPF (0-4); Squamous Epithelial Cell,Urine Occasional /HPF (0-10); Urine Color Straw (Yellow); Urine Specific Gravity 1.005 (1.001-1.035); Urine Urobilinogen < 2.0 EU/DL (0.2-1.0); WBC,Urine 2 /HPF (0-6)
[2016-09-13] MEDS ORDERED: CALCIUM GLUCONATE 2,000 MG in SODIUM CHLORIDE 0.9% 100 ML IV ONE (14:00)
[2016-09-13] MEDS: ATORVASTATIN 80 MG TABLET PO SCH (20:03)
[2016-09-14] MEDS: ALBUTEROL/IPRATROPIUM 3 ML NEB RESP TX SCH ×4 (03:32→20:13)
[2016-09-14 05:15] LABS: Basophils % 0.6 % (0.0-0.8); Eosinophils # 0.7 10*3/uL (0.0-0.87); Eosinophils % 10.4 % (0.00-10.9); Hematocrit 28.9 VOL% (35.7-47.0); Hemoglobin 9.5 GM/DL (12.0-16.0); Immature Granulocytes % 0.5 %; Immature Granulocytes Absolute 0.03 #; Lymphocytes # 1.8 10*3/uL (1.4-4.0); Lymphocytes % 28.1 % (21.3-54.2); Mean Corpuscular HGB Conc 32.9 GM/DL (32-36); Mean Corpuscular Hemoglobin 29 PG (27-34); Mean Corpuscular Volume 88.9 FL (87-102); Mean Platelet Volume 10.2 FL (9.6-12.0); Monocytes # 0.5 10*3/uL (0.11-0.8); Monocytes % 7.7 % (1.7-12.7); Neutrophils # 3.3 10*3/uL (1.4-7.4); Neutrophils % 52.7 % (38.7-73.9); Platelet Count 177 T/CUMM (130-400); Red Blood Count 3.25 MC/CUMM (3.8-5.5); Red Cell Distribution Width 15.6 % (9.3-17.3); White Blood Count 6.3 T/CUMM (4-12)
[2016-09-14 05:52] LABS: Calcium 7.3 MG/DL (8.5-10.1); Osmolality,Calculated 304.7 MOS/KG (273-304); Potassium 4.5 MMOL/L (3.5-5.1)
[2016-09-14] MEDS: INSULIN REGULAR 100 UNIT/ML SUBCUT SCH ×4 (08:22→21:02)
[2016-09-14] MEDS: ASPIRIN CHEW 81 MG TABLET PO SCH (08:38)
[2016-09-14] MEDS: CALCIUM CARBONATE CHEW 500 MG TABLET PO SCH ×2 (08:38→21:00)
[2016-09-14] MEDS: CARVEDILOL 25 MG TABLET PO SCH ×2 (08:39→21:00)
[2016-09-14] MEDS: amLODIPine 5 MG TABLET PO SCH (08:39)
[2016-09-14] MEDS: metOLazone 5 MG TABLET PO SCH (08:39)
[2016-09-14] MEDS: PANTOPRAZOLE 40 MG TABLET PO SCH (08:39)
[2016-09-14] MEDS: ISOSORBIDE MONONITRATE 30 MG TABLET PO SCH (08:40)
[2016-09-14] MEDS: hydrALAZINE 25 MG TABLET PO SCH ×3 (08:40→21:00)
[2016-09-14] MEDS: ENOXAPARIN 30 MG/0.3 ML SYRINGE SUBCUT SCH (08:40)
[2016-09-14] MEDS: FUROSEMIDE 40 MG/4 ML VIAL IV SCH ×2 (08:56→17:21)
[2016-09-14] MEDS ORDERED: AZITHROMYCIN 250 MG TABLET PO SCH (09:00)
[2016-09-14] MEDS: IRON SUCROSE 200 MG in SODIUM CHLORIDE 0.9% 100 ML IV SCH (09:32)
--- NOTE | 2016-09-14 13:50 | Hospitalist Progress Note ---
Assessment and Plan (1) CHF exacerbation Status: Acute Assessment and plan: 1)CHF exacerbation- improving with diuresis and control of BP. Her HTN is under better control today after increases in hydralazine yesterday. EF is 35%. 2)acute on chronic renal failure- monitor creatinine while diuresing. 3)pneumonia ruled out 4)uncontrolled diabetes-looks better with insulin held- needs less with increase in creatinine. 5)anemia- iron IV per Dr Chance. Current Visit: No Qualifiers: Congestive heart failure type: systolic Qualified Code(s): I50.23 - Acute on chronic systolic (congestive) heart failure (2) Malignant hypertension Status: Acute Current Visit: No (3) Uncontrolled diabetes mellitus Status: Chronic Current Visit: No Qualifiers: Diabetes mellitus type: type 2 Diabetes mellitus complication status: with kidney complications Diabetes mellitus complication detail: with chronic kidney disease Diabetes mellitus prison insulin use: without long term care social worker use Chronic kidney disease stage: stage 2 (mild) Qualified Code(s): E11.22 - Type 2 diabetes mellitus with diabetic chronic kidney disease (4) Cardiomyopathy Status: Chronic Current Visit: No (5) Anemia Status: Chronic Current Visit: No Qualifiers: Anemia type: unspecified type Qualified Code(s): D64.9 - Anemia, unspecified (6) Acute on chronic renal failure Status: Chronic Current Visit: No Hospitalist: Subjective Interval history: Mrs Triplett is feeling ok today. She is breathing a little better. She denies pain. Exam - Constitutional Vitals: Period Temp Pulse Resp BP Sys/Batres Pulse Ox Last 24 Hr 97.7 F-99.1 F 78-96 16-18 133-148/67-79 94-98 General appearance: normal weight, no acute distress - Head Head exam: Present: normocephalic, atraumatic - Eye Eye exam: Present: EOMI. Absent: scleral icterus - Respiratory Respiratory exam: Present: rales. Absent: wheezes - Cardiovascular Cardiovascular exam: Present: regular rate and rhythm - GI/Abdominal GI/Abdominal exam: Present: normal bowel sounds, soft. Absent: tenderness - Extremities Exam Extremities exam: Absent: edema Results - Labs CBC & BMP: 09/14/16 04:59 09/14/16 04:59 Lab Results: I have reviewed the past 24 hour labs
--- NOTE | 2016-09-14 14:20 | Nephrology Progress Note ---
Nephrology - PN: Subj Interval history: Ms. Triplett is seen in follow-up of her chronic renal failure with significant edema and is diuresing now. Her edema is less but her weight has not changed significantly. We are going to increase her Lasix from 80 twice daily to 120 mg twice daily. Exam (PN)-Nephrology - Vital Signs Vital signs: Period Temp Pulse Resp BP Sys/Batres Pulse Ox Last 24 Hr 97.7 F-99.1 F 78-96 16-18 133-148/67-79 94-98 - Lab 09/14/16 04:59 09/14/16 04:59 Most recent lab results Calcium 7.3 MG/DL (8.5-10.1) L 09/14/16 04:59 Magnesium 2.0 MG/DL (1.8-2.4) 09/14/16 04:59
[2016-09-14] MEDS ORDERED: oxyCODONE/ACETAMINOPHEN 5-325 MG TABLET PO PRN (17:45)
[2016-09-14] MEDS: ACETAMINOPHEN 325 MG TABLET PO PRN (17:50)
[2016-09-14] MEDS: ATORVASTATIN 80 MG TABLET PO SCH (21:00)
[2016-09-15] MEDS: ALBUTEROL/IPRATROPIUM 3 ML NEB RESP TX SCH ×4 (01:02→18:59)
[2016-09-15 05:37] LABS: Basophils % 0.6 % (0.0-0.8); Eosinophils # 0.6 10*3/uL (0.0-0.87); Eosinophils % 11.6 % (0.00-10.9); Hematocrit 28.6 VOL% (35.7-47.0); Hemoglobin 9.7 GM/DL (12.0-16.0); Immature Granulocytes % 0.6 %; Immature Granulocytes Absolute 0.03 #; Lymphocytes # 1.7 10*3/uL (1.4-4.0); Lymphocytes % 35.2 % (21.3-54.2); Mean Corpuscular HGB Conc 33.9 GM/DL (32-36); Mean Corpuscular Hemoglobin 30 PG (27-34); Mean Corpuscular Volume 88.8 FL (87-102); Mean Platelet Volume 10.3 FL (9.6-12.0); Monocytes # 0.5 10*3/uL (0.11-0.8); Monocytes % 10.1 % (1.7-12.7); Neutrophils % 41.9 % (38.7-73.9); Platelet Count 184 T/CUMM (130-400); Red Blood Count 3.22 MC/CUMM (3.8-5.5); Red Cell Distribution Width 15.3 % (9.3-17.3); White Blood Count 4.8 T/CUMM (4-12)
[2016-09-15 05:56] LABS: Calcium 6.9 MG/DL (8.5-10.1); Osmolality,Calculated 303.1 MOS/KG (273-304); Potassium 4.3 MMOL/L (3.5-5.1)
[2016-09-15 06:13] LABS: Burr Cells 1+; Eosinophils 8 % (0-10); Hypochromasia Slight; Lymphocytes 32 % (20-55); Platelet Estimate Adequate; Segmented Neutrophils 55 % (50-85); Total Cells Counted 100
[2016-09-15] MEDS: INSULIN REGULAR 100 UNIT/ML SUBCUT SCH ×4 (08:52→20:39)
--- NOTE | 2016-09-15 08:56 | Cardiology Progress Note ---
<Justine Bateman - Last Filed: 09/15/16 08:37> Assessment and Plan (1) Chronic renal failure Status: Chronic Assessment and plan: See plan of care listed below. Current Visit: Yes (2) Pericardial effusion Status: Acute Assessment and plan: See plan of care listed below. Current Visit: Yes (3) CHF exacerbation Status: Chronic Assessment and plan: See plan of care listed below. Current Visit: No Qualifiers: Congestive heart failure type: systolic Qualified Code(s): I50.23 - Acute on chronic systolic (congestive) heart failure (4) Anemia Status: Chronic Assessment and plan: See plan of care listed below. Current Visit: No Qualifiers: Anemia type: unspecified type Qualified Code(s): D64.9 - Anemia, unspecified (5) Cardiomyopathy Status: Chronic Assessment and plan: See plan of care listed below. Current Visit: No (6) Diabetes Status: Chronic Assessment and plan: See plan of care listed below. Current Visit: No Qualifiers: Diabetes mellitus type: other specified (including MELANIA) Diabetes mellitus complication status: with kidney complications Chronic kidney disease stage: stage 3 (moderate) (7) Hypertension Status: Chronic Assessment and plan: See plan of care listed below. Current Visit: No Qualifiers: Hypertension type: essential hypertension Qualified Code(s): I10 - Essential (primary) hypertension (8) Hyperlipidemia Status: Chronic Assessment and plan: See plan of care listed below. Current Visit: Yes Cardiology - PN: Subj Interval history: Community Specialist: Dr. Velez Summary: Ms. Triplett is a 45 year old female with a history of mixed cardiomyopathy, both ischemic and nonischemic. History of cardiac catheterization January 2016 demonstrating LAD with 50-60% focal distal stenosis , small vessel intermediate ramus with 60-70% stenosis. She also has a history of chronic renal insufficiency, diabetes mellitus, dyslipidemia, hypertension. She was recently evaluated in clinic by Dr. Velez on September 04 at which time her hydralazine was stopped due to a pericardial effusion seen on echo. Her lisinopril was increased to 20 mg twice daily. Echocardiogram performed August demonstrated ejection fraction 40%, moderate mitral regurgitation, moderate tricuspid regurgitation, diastolic dysfunction, moderate size pericardial effusion. She was admitted to the hospital with worsening shortness of breath, edema, cough. BNP on admission, 1291. September 15, 2016 Update : Overall evening was uneventful. She reports that she feels much better. She denies any chest pain, heaviness and tightness. Reports her breathing continues to improve. Blood pressure is better controlled this morning. Creatinine continues to trend up, today 5.9. Nephrology is following. Will follow their recommendations. Patient is diuresing well with Lasix and Zaroxolyn. Lasix was increased yesterday to 120 mg twice daily per nephrology. Weight unchanged overnight. H&H 9.7 and 28.6. No overt bleeding noted. Patient is in normal sinus rhythm with heart rates in the 80s without any overt arrhythmias or ectopy noted. Impression and plan: 1. SHORTNESS OF BREATH - Improving. Continue current plan of care with diuretics. 2. CONGESTIVE HEART FAILURE - This is acute on chronic secondary to systolic dysfunction, most recent EF 40%. Continue current plan of care with diuretics, will continue to monitor creatinine closely. Strict I's and O's. Daily weights. 3. PERICARDIAL EFFUSION - This was noted on echocardiogram August 31, 2016. Hydralazine had been stopped as an outpatient out of concern this could be contributing to the effusion, although it may be from her significant renal insufficiency. We will have to monitor for this now that her hydralazine has been restarted. Further recommendations to follow per Dr. Velez. 4. CHRONIC KIDNEY DISEASE - Nephrology is following. Will continue to monitor renal function closely while diuresing. Sydney THOMAS. 5. CARDIOMYOPATHY - This is mixed ischemic and nonischemic. Continue beta- kaz. Avoiding ANDREZ inhibitor and ARB due to fear of worsening renal function. 6. CORONARY ARTERY DISEASE - She does not appear to be having acute coronary syndrome. 7. ANEMIA - This is most likely anemia of chronic disease. No overt bleeding. Stool has been checked for occult blood, samples pending. Will continue to monitor with daily CBC. 8. HYPERTENSION - Continue current plan of care. 9. DIABETES - Management per attending. 10. HYPERLIPIDEMIA -continue current plan of care with lipid lowering agent. Further plan and addendum to follow per Dr. Velez. Exam (Progress Note) - Constitutional Vitals: Period Temp Pulse Resp BP Sys/Batres Pulse Ox Last 24 Hr 98.0 F-99.8 F 80-88 16-22 128-148/62-77 89-99 Exam: General appearance: normal weight, no acute distress - Head Head exam: Present: normal inspection, normocephalic, atraumatic. Absent: hematoma, laceration - Eye Eye exam: Present: EOMI. Absent: conjunctival injection, nystagmus, periorbital swelling, scleral icterus, laceration to eyelids Pupils: Present: PERRL. Absent: constricted, dilated, fixed, irregular, unequal - ENT ENT exam: Present: normal exam, normal external ear exam - Neck Neck exam: Present: normal inspection. Absent: lymphadenopathy, meningismus, tenderness, thyromegaly - Respiratory Respiratory exam: Present: Minimal rales in bilateral bases. Absent: accessory muscle use, chest wall tenderness - Cardiovascular Cardiovascular exam: Present: regular rate and rhythm. Absent: carotid bruit, gallop, JVD, rubs - GI/Abdominal GI/Abdominal exam: Present: normal bowel sounds, soft. Absent: distended, firm , guarding, hernia, mass, tenderness, rebound. - Extremities Exam Extremities exam: Absent: No calf tenderness, No Edema - Back Exam Back exam: Present: normal inspection. Absent: muscle spasm, vertebral tenderness - Neurological Exam Neurological exam: Present: alert, oriented X3, grossly intact without resting or intention tremor - Psychiatric Psychiatric exam: Present: normal affect, normal mood - Skin Skin exam: Present: normal color, warm, dry, intact. Absent: cyanosis, diaphoretic, rash, urticaria Result/EKG - Labs CBC & BMP: 09/15/16 04:41 09/15/16 04:41 Lab Results: I have reviewed the past 24 hour labs Labs: Laboratory Results - last 24 hr 09/14/16 09/14/16 09/14/16 11:47 15:44 19:19 WBC RBC Hgb Hct MCV MCH MCHC RDW Plt Count MPV Neut % (Auto) Lymph % (Auto) [place] % (Auto) Eos % (Auto) Baso % (Auto) Neut # (Auto) Lymph # (Auto) [place] # (Auto) Eos # (Auto) Baso # (Auto) Total Counted Immature Gran % Nucleated RBC % Immature Gran # Segmented Neutrophils Lymphocytes Monocytes Eosinophils Nucleated RBCs # Platelet Estimate Hypochromasia [place] Cells Sodium Potassium Chloride Carbon Dioxide Anion Gap BUN Creatinine GFR Calculation BUN/Creatinine Ratio Glucose POC Glucose 92 130 H 158 H Calculated Osmolality Calcium Magnesium 09/15/16 09/15/16 09/15/16 04:41 04:41 07:21 WBC 4.8 RBC 3.22 L Hgb 9.7 L Hct 28.6 L MCV 88.8 MCH 30 MCHC 33.9 RDW 15.3 Plt Count 184 MPV 10.3 Neut % (Auto) 41.9 Lymph % (Auto) 35.2 [place] % (Auto) 10.1 Eos % (Auto) 11.6 H Baso % (Auto) 0.6 Neut # (Auto) 2.0 Lymph # (Auto) 1.7 [place] # (Auto) 0.5 Eos # (Auto) 0.6 Baso # (Auto) 0.0 Total Counted 100 Immature Gran % 0.6 Nucleated RBC % 0.0 Immature Gran # 0.03 Segmented Neutrophils 55 Lymphocytes 32 Monocytes 5 Eosinophils 8 Nucleated RBCs # 0.00 Platelet Estimate Adequate Hypochromasia Slight [place] Cells 1+ Sodium 142 Potassium 4.3 Chloride 113 H Carbon Dioxide 17 L Anion Gap 16.3 H BUN 71 H Creatinine 5.90 H GFR Calculation 7 BUN/Creatinine Ratio 12.00 Glucose 91 POC Glucose 76 Calculated Osmolality 303.1 Calcium 6.9 L Magnesium 2.0 <Saumya Velez - Last Filed: 09/15/16 15:06> Assessment and Plan - Time spent with patient Time spent with patient: Less than 30 minutes (1) CAD (coronary artery disease) Status: Chronic Current Visit: Yes Qualifiers: Coronary Disease-Associated Artery/Lesion type: [place] artery [place] vs. transplanted heart: [place] heart Associated angina: without angina Qualified Code(s): I25.10 - Atherosclerotic heart disease of [place] coronary artery without angina pectoris (2) Hypertension Status: Chronic Current Visit: No Qualifiers: Hypertension type: essential hypertension Qualified Code(s): I10 - Essential (primary) hypertension (3) Renal insufficiency Status: Chronic Current Visit: No (4) Pericardial effusion Status: Acute Current Visit: Yes (5) Hyperlipidemia Status: Chronic Current Visit: Yes Cardiology - PN: Subj Interval history: I saw and examined with Ms. Bateman. This patient has chronic pleural effusion likely related to her chronic kidney disease however I previously stopped her hydralazine because of its possible contribution. He has been restarted I think that is acceptable we can follow. She has no signs or symptoms of impending tamponade. Her blood pressure is reasonably well controlled. She does not have JVD. Exam (Progress Note) - Constitutional Vitals: Period Temp Pulse Resp BP Sys/Batres Pulse Ox Last 24 Hr 98.0 F-99.8 F 80-89 16-22 128-152/62-77 89-99 Exam: No JVD no hepatojugular reflux is good crisp heart tones. I do not hear rub. Result/EKG - Labs CBC & BMP: 09/15/16 04:41 09/15/16 04:41 Labs: Laboratory Results - last 24 hr 09/14/16 09/14/16 09/15/16 15:44 19:19 04:41 WBC 4.8 RBC 3.22 L Hgb 9.7 L Hct 28.6 L MCV 88.8 MCH 30 MCHC 33.9 RDW 15.3 Plt Count 184 MPV 10.3 Neut % (Auto) 41.9 Lymph % (Auto) 35.2 [place] % (Auto) 10.1 Eos % (Auto) 11.6 H Baso % (Auto) 0.6 Neut # (Auto) 2.0 Lymph # (Auto) 1.7 [place] # (Auto) 0.5 Eos # (Auto) 0.6 Baso # (Auto) 0.0 Total Counted 100 Immature Gran % 0.6 Nucleated RBC % 0.0 Immature Gran # 0.03 Segmented Neutrophils 55 Lymphocytes 32 Monocytes 5 Eosinophils 8 Nucleated RBCs # 0.00 Platelet Estimate Adequate Hypochromasia Slight [place] Cells 1+ Sodium Potassium Chloride Carbon Dioxide Anion Gap BUN Creatinine GFR Calculation BUN/Creatinine Ratio Glucose POC Glucose 130 H 158 H Calculated Osmolality Calcium Magnesium 09/15/16 09/15/16 09/15/16 04:41 07:21 11:01 WBC RBC Hgb Hct MCV MCH MCHC RDW Plt Count MPV Neut % (Auto) Lymph % (Auto) [place] % (Auto) Eos % (Auto) Baso % (Auto) Neut # (Auto) Lymph # (Auto) [place] # (Auto) Eos # (Auto) Baso # (Auto) Total Counted Immature Gran % Nucleated RBC % Immature Gran # Segmented Neutrophils Lymphocytes Monocytes Eosinophils Nucleated RBCs # Platelet Estimate Hypochromasia [place] Cells Sodium 142 Potassium 4.3 Chloride 113 H Carbon Dioxide 17 L Anion Gap 16.3 H BUN 71 H Creatinine 5.90 H GFR Calculation 7 BUN/Creatinine Ratio 12.00 Glucose 91 POC Glucose 76 111 H Calculated Osmolality 303.1 Calcium 6.9 L Magnesium 2.0
[2016-09-15] MEDS: FUROSEMIDE 40 MG/4 ML VIAL IV SCH (09:07)
[2016-09-15] MEDS: hydrALAZINE 25 MG TABLET PO SCH ×3 (09:08→20:39)
[2016-09-15] MEDS: CARVEDILOL 25 MG TABLET PO SCH ×2 (09:08→20:39)
[2016-09-15] MEDS: ISOSORBIDE MONONITRATE 30 MG TABLET PO SCH (09:08)
[2016-09-15] MEDS: ASPIRIN CHEW 81 MG TABLET PO SCH (09:08)
[2016-09-15] MEDS: PANTOPRAZOLE 40 MG TABLET PO SCH (09:09)
[2016-09-15] MEDS: ENOXAPARIN 30 MG/0.3 ML SYRINGE SUBCUT SCH (09:09)
[2016-09-15] MEDS: metOLazone 5 MG TABLET PO SCH (09:09)
[2016-09-15] MEDS: CALCIUM CARBONATE CHEW 500 MG TABLET PO SCH ×2 (09:09→20:39)
[2016-09-15] MEDS: amLODIPine 5 MG TABLET PO SCH (09:09)
[2016-09-15] MEDS: IRON SUCROSE 200 MG in SODIUM CHLORIDE 0.9% 100 ML IV SCH (09:56)
--- NOTE | 2016-09-15 10:14 | Nephrology Progress Note ---
Nephrology - PN: Subj Interval history: Ms. Triplett is seen in follow-up for chronic renal impairment. Her edema is much improved she is down at least 5 pounds from my weight yesterday. She can discontinue her Marquez catheter since she says she would prefer to have it out and she can easily navigate to the restroom now. We will have to modify her diuretic therapy and she will probably be able to get by with Lasix alone so we will switch to 160 mg Lasix p.o. twice daily and stop her metolazone. I believe she has a follow-up appointment with Dr. Bonds. If she does not we can see her in 2-3 weeks in our clinic. Exam (PN)-Nephrology - Vital Signs Vital signs: Period Temp Pulse Resp BP Sys/Batres Pulse Ox Last 24 Hr 98.0 F-99.8 F 80-88 16-22 128-145/62-77 89-99 - Lab 09/15/16 04:41 09/15/16 04:41 Most recent lab results Calcium 6.9 MG/DL (8.5-10.1) L 09/15/16 04:41 Magnesium 2.0 MG/DL (1.8-2.4) 09/15/16 04:41
[2016-09-15] MEDS: ACETAMINOPHEN 325 MG TABLET PO PRN (12:55)
--- NOTE | 2016-09-15 13:07 | Hospitalist Progress Note ---
Assessment and Plan (1) CHF exacerbation Status: Chronic Assessment and plan: 1)CHF exacerbation- improved with diuresis and control of BP. Her HTN is under better control today after increases in hydralazine yesterday. EF is 35%. 2)acute on chronic renal failure- monitor creatinine while diuresing. now on less lasix and no metalazone. will see Dr Bonds or Dr Chance in clinic in 2-3 weeks. 3)pneumonia ruled out 4)uncontrolled diabetes-looks better with insulin held- needs less with increase in creatinine. has not needed SSI. 5)anemia- iron IV per Dr Chance. Current Visit: No Qualifiers: Congestive heart failure type: systolic Qualified Code(s): I50.23 - Acute on chronic systolic (congestive) heart failure (2) Malignant hypertension Status: Acute Current Visit: No (3) Uncontrolled diabetes mellitus Status: Chronic Current Visit: No Qualifiers: Diabetes mellitus type: type 2 Diabetes mellitus complication status: with kidney complications Diabetes mellitus complication detail: with chronic kidney disease Diabetes mellitus research investigator insulin use: without care home use Chronic kidney disease stage: stage 2 (mild) Qualified Code(s): E11.22 - Type 2 diabetes mellitus with diabetic chronic kidney disease (4) Cardiomyopathy Status: Chronic Current Visit: No (5) Anemia Status: Chronic Current Visit: No Qualifiers: Anemia type: unspecified type Qualified Code(s): D64.9 - Anemia, unspecified (6) Acute on chronic renal failure Status: Chronic Current Visit: No Hospitalist: Subjective Interval history: MS Triplett is feeling better today, less short of breath. Carolyn has taken her byrd out and decreased her lasix and stopped the metalazone. She may be ready to go home tomorrow. Exam - Constitutional Vitals: Period Temp Pulse Resp BP Sys/Batres Pulse Ox Last 24 Hr 98.0 F-99.8 F 80-89 16-22 128-152/62-77 89-99 General appearance: normal weight, no acute distress - Head Head exam: Present: normocephalic, atraumatic - Eye Eye exam: Present: EOMI. Absent: scleral icterus - Respiratory Respiratory exam: Present: clear to auscultation bilaterally - Cardiovascular Cardiovascular exam: Present: regular rate and rhythm - GI/Abdominal GI/Abdominal exam: Present: normal bowel sounds, soft. Absent: tenderness - Extremities Exam Extremities exam: Absent: edema Results - Labs CBC & BMP: 09/15/16 04:41 09/15/16 04:41 Lab Results: I have reviewed the past 24 hour labs
[2016-09-15] MEDS: FUROSEMIDE 80 MG TABLET PO SCH (15:11)
[2016-09-15] MEDS: ATORVASTATIN 80 MG TABLET PO SCH (20:39)
[2016-09-16] MEDS: ALBUTEROL/IPRATROPIUM 3 ML NEB RESP TX SCH ×3 (00:12→13:34)
[2016-09-16 05:16] LABS: Basophils % 0.8 % (0.0-0.8); Eosinophils # 0.5 10*3/uL (0.0-0.87); Eosinophils % 10.8 % (0.00-10.9); Hematocrit 29.4 VOL% (35.7-47.0); Hemoglobin 9.9 GM/DL (12.0-16.0); Immature Granulocytes % 0.2 %; Immature Granulocytes Absolute 0.01 #; Lymphocytes # 1.9 10*3/uL (1.4-4.0); Lymphocytes % 37.8 % (21.3-54.2); Mean Corpuscular HGB Conc 33.7 GM/DL (32-36); Mean Corpuscular Hemoglobin 30 PG (27-34); Mean Corpuscular Volume 89.6 FL (87-102); Mean Platelet Volume 9.8 FL (9.6-12.0); Monocytes # 0.5 10*3/uL (0.11-0.8); Monocytes % 9.2 % (1.7-12.7); Neutrophils # 2.1 10*3/uL (1.4-7.4); Neutrophils % 41.2 % (38.7-73.9); Platelet Count 184 T/CUMM (130-400); Red Blood Count 3.28 MC/CUMM (3.8-5.5); Red Cell Distribution Width 15.2 % (9.3-17.3)
[2016-09-16 05:53] LABS: Magnesium 2.1 MG/DL (1.8-2.4); Osmolality,Calculated 302.1 MOS/KG (273-304); Potassium 4.2 MMOL/L (3.5-5.1)
[2016-09-16] MEDS: FUROSEMIDE 80 MG TABLET PO SCH ×2 (08:58→15:24)
[2016-09-16] MEDS: CARVEDILOL 25 MG TABLET PO SCH (08:58)
[2016-09-16] MEDS: CALCIUM CARBONATE CHEW 500 MG TABLET PO SCH (08:58)
[2016-09-16] MEDS: ASPIRIN CHEW 81 MG TABLET PO SCH (08:58)
[2016-09-16] MEDS: hydrALAZINE 25 MG TABLET PO SCH ×2 (08:58→15:24)
[2016-09-16] MEDS: ISOSORBIDE MONONITRATE 30 MG TABLET PO SCH (08:59)
[2016-09-16] MEDS: amLODIPine 5 MG TABLET PO SCH (08:59)
[2016-09-16] MEDS: ENOXAPARIN 30 MG/0.3 ML SYRINGE SUBCUT SCH (08:59)
[2016-09-16] MEDS: IRON SUCROSE 200 MG in SODIUM CHLORIDE 0.9% 100 ML IV SCH (08:59)
[2016-09-16] MEDS: PANTOPRAZOLE 40 MG TABLET PO SCH (08:59)
[2016-09-16] MEDS: INSULIN REGULAR 100 UNIT/ML SUBCUT SCH ×2 (09:13→12:45)
--- NOTE | 2016-09-16 11:41 | Cardiology Progress Note ---
Assessment and Plan (1) Chronic renal failure Status: Chronic Assessment and plan: See plan of care listed below. Current Visit: Yes (2) Pericardial effusion Status: Acute Assessment and plan: See plan of care listed below. Current Visit: Yes (3) CHF exacerbation Status: Chronic Assessment and plan: See plan of care listed below. Current Visit: No Qualifiers: Congestive heart failure type: systolic Qualified Code(s): I50.23 - Acute on chronic systolic (congestive) heart failure (4) Anemia Status: Chronic Assessment and plan: See plan of care listed below. Current Visit: No Qualifiers: Anemia type: unspecified type Qualified Code(s): D64.9 - Anemia, unspecified (5) Cardiomyopathy Status: Chronic Assessment and plan: See plan of care listed below. Current Visit: No (6) Diabetes Status: Chronic Assessment and plan: See plan of care listed below. Current Visit: No Qualifiers: Diabetes mellitus type: other specified (including MELANIA) Diabetes mellitus complication status: with kidney complications Chronic kidney disease stage: stage 3 (moderate) (7) Hypertension Status: Chronic Assessment and plan: See plan of care listed below. Current Visit: No Qualifiers: Hypertension type: essential hypertension Qualified Code(s): I10 - Essential (primary) hypertension (8) Hyperlipidemia Status: Chronic Assessment and plan: See plan of care listed below. Current Visit: Yes Cardiology - PN: Subj Interval history: Accounts Payable Processor: Dr. Velez Summary: Ms. Triplett is a 45 year old female with a history of mixed cardiomyopathy, both ischemic and nonischemic. History of cardiac catheterization January 2016 demonstrating LAD with 50-60% focal distal stenosis , small vessel intermediate ramus with 60-70% stenosis. She also has a history of chronic renal insufficiency, diabetes mellitus, dyslipidemia, hypertension. She was recently evaluated in clinic by Dr. Velez on September 04 at which time her hydralazine was stopped due to a pericardial effusion seen on echo. Her lisinopril was increased to 20 mg twice daily. Echocardiogram performed August demonstrated ejection fraction 40%, moderate mitral regurgitation, moderate tricuspid regurgitation, diastolic dysfunction, moderate size pericardial effusion. She was admitted to the hospital with worsening shortness of breath, edema, cough. BNP on admission, 1291. September 16, 2016 Update : Patient continues to improve. She reports that she feels much better. She denies any chest pain, heaviness and tightness. Denies shortness of breath. Creatinine continues to trend up, today 6.3. Nephrology is following. Will follow their recommendations. Patient is diuresing well with Lasix. Zaroxolyn was discontinued yesterday by nephrology. According to her I's and O's, she has lost 1 pound overnight. H&H is slightly better today at 9.9 and 29.4. No overt bleeding noted. Patient is in normal sinus rhythm with heart rates in the 80s without any overt arrhythmias or ectopy noted. Patient is stable from a cardiac standpoint. Nephrology is following and once patient's creatinine stabilizes patient may be stable for discharge home. Impression and plan: 1. SHORTNESS OF BREATH - Resolved. 2. CONGESTIVE HEART FAILURE - Clinically better. This is acute on chronic secondary to systolic dysfunction, most recent EF 40%. Continue current plan of care with diuretics, will continue to monitor creatinine closely. Strict I' s and O's. Daily weights. 3. PERICARDIAL EFFUSION - This was noted on echocardiogram August 31, 2016. Hydralazine had been stopped as an outpatient out of concern this could be contributing to the effusion, although it may be from her significant renal insufficiency. Hydralazine has been restarted this admission, patient has tolerated well. She has no signs or symptoms of impending tamponade. She is stable from a cardiac standpoint. She will be given a follow-up appointment with Dr. Velez in approximately 2 weeks. 4. CHRONIC KIDNEY DISEASE - Nephrology is following. Will continue to monitor renal function closely while diuresing. Daily BMP. 5. CARDIOMYOPATHY - This is mixed ischemic and nonischemic. Continue beta- kaz. Avoiding ANDREZ inhibitor and ARB due to fear of worsening renal function. 6. CORONARY ARTERY DISEASE - She does not appear to be having acute coronary syndrome. 7. ANEMIA - This is most likely anemia of chronic disease as patient has chronic renal disease. H&H today is stable at 9.9 29.4. No overt bleeding. Stool has been checked for occult blood, samples pending. Will continue to monitor with daily CBC. 8. HYPERTENSION - Suboptimally controlled, patient's dose of Norvasc was increased. 9. DIABETES - Management per attending. 10. HYPERLIPIDEMIA - Continue current plan of care with lipid lowering agent. Further plan and addendum to follow per Dr. Velez. Exam (Progress Note) - Constitutional Vitals: Period Temp Pulse Resp BP Sys/Batres Pulse Ox Last 24 Hr 97.2 F-99.2 F 73-98 16-20 136-154/67-79 95-99 Exam: General appearance: normal weight, no acute distress - Head Head exam: Present: normal inspection, normocephalic, atraumatic. Absent: hematoma, laceration - Eye Eye exam: Present: EOMI. Absent: conjunctival injection, nystagmus, periorbital swelling, scleral icterus, laceration to eyelids Pupils: Present: PERRL. Absent: constricted, dilated, fixed, irregular, unequal - ENT ENT exam: Present: normal exam, normal external ear exam - Neck Neck exam: Present: normal inspection. Absent: lymphadenopathy, meningismus, tenderness, thyromegaly, JVD, hepatojugular reflux. - Respiratory Respiratory exam: Present: Minimal rales in bilateral bases. Absent: accessory muscle use, chest wall tenderness - Cardiovascular Cardiovascular exam: Present: regular rate and rhythm. Absent: carotid bruit, gallop, JVD, rubs - GI/Abdominal GI/Abdominal exam: Present: normal bowel sounds, soft. Absent: distended, firm , guarding, hernia, mass, tenderness, rebound. - Extremities Exam Extremities exam: Absent: No calf tenderness, No Edema - Back Exam Back exam: Present: normal inspection. Absent: muscle spasm, vertebral tenderness - Neurological Exam Neurological exam: Present: alert, oriented X3, grossly intact without resting or intention tremor - Psychiatric Psychiatric exam: Present: normal affect, normal mood - Skin Skin exam: Present: normal color, warm, dry, intact. Absent: cyanosis, diaphoretic, rash, urticaria Result/EKG - Labs CBC & BMP: 09/16/16 05:04 09/16/16 05:04 Lab Results: I have reviewed the past 24 hour labs Labs: Laboratory Results - last 24 hr 09/15/16 09/15/16 09/15/16 11:01 15:39 19:07 WBC RBC Hgb Hct MCV MCH MCHC RDW Plt Count MPV Neut % (Auto) Lymph % (Auto) [place] % (Auto) Eos % (Auto) Baso % (Auto) Neut # (Auto) Lymph # (Auto) [place] # (Auto) Eos # (Auto) Baso # (Auto) Immature Gran % Nucleated RBC % Immature Gran # Nucleated RBCs # Sodium Potassium Chloride Carbon Dioxide Anion Gap BUN Creatinine GFR Calculation BUN/Creatinine Ratio Glucose POC Glucose 111 H 150 H 163 H Calculated Osmolality Calcium Magnesium 09/16/16 09/16/16 09/16/16 05:04 05:04 07:38 WBC 5.0 RBC 3.28 L Hgb 9.9 L Hct 29.4 L MCV 89.6 MCH 30 MCHC 33.7 RDW 15.2 Plt Count 184 MPV 9.8 Neut % (Auto) 41.2 Lymph % (Auto) 37.8 [place] % (Auto) 9.2 Eos % (Auto) 10.8 Baso % (Auto) 0.8 Neut # (Auto) 2.1 Lymph # (Auto) 1.9 [place] # (Auto) 0.5 Eos # (Auto) 0.5 Baso # (Auto) 0.0 Immature Gran % 0.2 Nucleated RBC % 0.0 Immature Gran # 0.01 Nucleated RBCs # 0.00 Sodium 142 Potassium 4.2 Chloride 112 H Carbon Dioxide 18 L Anion Gap 16.2 H BUN 69 H Creatinine 6.30 H GFR Calculation 7 BUN/Creatinine Ratio 10.00 Glucose 100 POC Glucose 82 Calculated Osmolality 302.1 Calcium 7.0 L Magnesium 2.1 Specialty Discharge - Follow Up or Referrals Follow up with: Saumya Velez DO [Physician] - 2 Weeks
[2016-09-16] MEDS ORDERED: amLODIPine 10 MG TABLET PO SCH (11:47)
--- NOTE | 2016-09-16 14:16 | Discharge Summary ---
Hospital Course - Hospital Course Hospital Course: Ms Triplett presented with volume overload and acute heart faliure and worsened renal failure. She has been diuresed and is now breathign comfortably and has no peripheral edema. Her creatinine has continued to rise and Dr Chance feels she will require hemodialysis soon. At this time she is well compensated and can be discharged home. She will follow up with Dr Velez and Dr Chance in 2 weeks. - Time spent with patient Time with patient DS: Greater than 30 minutes (coordination of care, documentation, medicine reconciliation took 40 minutes.) Diagnosis - Discharge Diagnosis (1) CHF exacerbation Status: Chronic (2) Malignant hypertension Status: Acute (3) Uncontrolled diabetes mellitus Status: Chronic (4) Cardiomyopathy Status: Chronic (5) Anemia Status: Chronic (6) Acute on chronic renal failure Status: Acute Specialty Discharge - Follow Up or Referrals Follow up with: Saumya Velez DO [Physician] - 2 Weeks Garret Chance MD [Physician] - 2 Weeks Discharge Plan - Discharge Data Disposition: Disch To Home/Self Care Condition at Discharge: Stable Discharge Diet: diabetic diet, heart healthy Activity: resume usual activities as tolerated - Discharge Medications New Calcium Carbonate Chew [Tums] 2 tablet PO BID #60 tablet hydrALAZINE TAB [Apresoline Tab] 50 mg PO TID #90 tablet amLODIPine [Norvasc] 10 mg PO DAILY #30 tablet Furosemide Tab [Lasix Tab] 160 mg PO BID DIURETIC #60 tablet Continue Atorvastatin [Lipitor] 80 mg PO BEDTIME #30 tablet Carvedilol [Coreg] 25 mg PO BID #60 tablet Isosorbide Mononitrate [Isosorbide Mononitrate ER] 30 mg PO DAILY Discontinued Insulin Detemir [Levemir] 5 units SUBCUT QAM amLODIPine [Norvasc] 5 mg PO DAILY #30 tablet Lisinopril [Prinivil] 20 mg PO BID - Follow Up or Referral Follow Up: Saumya Velez DO [Physician] - 2 Weeks - Forms/Instructions Exam - Constitutional Vitals: Period Temp Pulse Resp BP Sys/Batres Pulse Ox Last 24 Hr 97.2 F-99.2 F 73-98 16-20 129-154/67-79 95-99 General appearance: normal weight, no acute distress - Eye Eye exam: Present: EOMI. Absent: scleral icterus - Respiratory Respiratory exam: Present: clear to auscultation bilaterally - Cardiovascular Cardiovascular exam: Present: regular rate and rhythm - GI/Abdominal GI/Abdominal exam: Present: normal bowel sounds, soft. Absent: tenderness - Extremities Exam Extremities exam: Absent: edema Discharge Results Procedures and tests throughout hospitalization: Pending Orders 09/12/16 04:16 Blood Culture Stat 09/12/16 11:47 Occult Blood, Stool Routine 09/17/16 04:00 BMP w/ Mg [Basic Metabolic Panel w/Mg] IN AM CBC [Comp Blood Count Auto Diff] IN AM 09/18/16 04:00 BMP w/ Mg [Basic Metabolic Panel w/Mg] IN AM CBC [Comp Blood Count Auto Diff] IN AM Labs on day of discharge: Labs from last 24 hours 09/16/16 09/16/16 09/16/16 11:46 07:38 05:04 WBC RBC Hgb Hct MCV MCH MCHC RDW Plt Count MPV Neut % (Auto) Lymph % (Auto) [place] % (Auto) Eos % (Auto) Baso % (Auto) Neut # (Auto) Lymph # (Auto) [place] # (Auto) Eos # (Auto) Baso # (Auto) Immature Gran % Nucleated RBC % Immature Gran # Nucleated RBCs # Sodium 142 Potassium 4.2 Chloride 112 H Carbon Dioxide 18 L Anion Gap 16.2 H BUN 69 H Creatinine 6.30 H GFR Calculation 7 BUN/Creatinine Ratio 10.00 Glucose 100 POC Glucose 133 H 82 Calculated Osmolality 302.1 Calcium 7.0 L Magnesium 2.1 09/16/16 09/15/16 09/15/16 05:04 19:07 15:39 WBC 5.0 RBC 3.28 L Hgb 9.9 L Hct 29.4 L MCV 89.6 MCH 30 MCHC 33.7 RDW 15.2 Plt Count 184 MPV 9.8 Neut % (Auto) 41.2 Lymph % (Auto) 37.8 [place] % (Auto) 9.2 Eos % (Auto) 10.8 Baso % (Auto) 0.8 Neut # (Auto) 2.1 Lymph # (Auto) 1.9 [place] # (Auto) 0.5 Eos # (Auto) 0.5 Baso # (Auto) 0.0 Immature Gran % 0.2 Nucleated RBC % 0.0 Immature Gran # 0.01 Nucleated RBCs # 0.00 Sodium Potassium Chloride Carbon Dioxide Anion Gap BUN Creatinine GFR Calculation BUN/Creatinine Ratio Glucose POC Glucose 163 H 150 H Calculated Osmolality Calcium Magnesium 09/15/16 11:01 WBC RBC Hgb Hct MCV MCH MCHC RDW Plt Count MPV Neut % (Auto) Lymph % (Auto) [place] % (Auto) Eos % (Auto) Baso % (Auto) Neut # (Auto) Lymph # (Auto) [place] # (Auto) Eos # (Auto) Baso # (Auto) Immature Gran % Nucleated RBC % Immature Gran # Nucleated RBCs # Sodium Potassium Chloride Carbon Dioxide Anion Gap BUN Creatinine GFR Calculation BUN/Creatinine Ratio Glucose POC Glucose 111 H Calculated Osmolality Calcium Magnesium Preliminary micro results at discharge 09/12/16 04:16 Blood Culture - Preliminary Blood No growth at 3 days 09/12/16 04:16 Blood Culture - Preliminary Blood No growth at 3 days DS: Provider Date of admission: 09/12/16 01:59 Primary care physician: Sina Young MD Attending physician on admission: David Conte MD Consults: 09/12/16 01:59 Consult to Physician [CONS] Routine Comment: chf Consulting Provider: Michelle Hobbs When should Consulting Provider be notified: Now When should Consulting Provider be notified: In am Person Notified: Juan M- [employer] answering service Date Notified: 09/12/16 Time Notified: 07:56 09/12/16 03:18 Consult to Physician [CONS] Routine Comment: renal failure and heart failure Consulting Provider: Garret Chance Consulting Provider Notified: Yes Consult to Specialist Group: Nephrology When should Consulting Provider be notified: In am Discharging clinician: Aidee Guillen MD
--- NOTE | 2016-09-16 15:57 | Nephrology Progress Note ---
Nephrology - PN: Subj Interval history: Ms. Triplett is seen in follow-up of her edema and progressive chronic renal failure. Her weight today by me is down to 126 pounds from 130 yesterday and 135 the day prior. She does have peripheral edema and sacral edema and crackles in her right base. I do think she is reached maximal hospital benefit and can be discharged. Unfortunately her creatinine is rising. But I think we need to continue with her diuresis and the lower dose of diuretics that she is on now (160 mg daily) should be adequate. She will see me in about 2 weeks and bring her medicines with her. She understands that her kidney function is poor and may worsen over time. Exam (PN)-Nephrology - Vital Signs Vital signs: Period Temp Pulse Resp BP Sys/Batres Pulse Ox Last 24 Hr 97.2 F-99.2 F 73-98 16-20 129-154/67-79 95-99 - Lab 09/16/16 05:04 09/16/16 05:04 Most recent lab results Calcium 7.0 MG/DL (8.5-10.1) L 09/16/16 05:04 Magnesium 2.1 MG/DL (1.8-2.4) 09/16/16 05:04 Specialty Discharge - Follow Up or Referrals Follow up with: Garret Chance MD [Physician] - 10/01/16 9:45 am Saumya Velez DO [Physician] - 09/30/16 12:40 pm
[2016-09-16 16:28] VITALS: BP 129/66
== END 2016-09-16 17:30 | disposition home or self-care (01) | DRG 291 ==
LOC: EDBD → EDUNIT# → N.ED 01:14 → N.EDINP 01:59 → SUATTDRO 01:59 → N.TELEN 02:47
PROVIDERS: ADMIT Internal Medicine; ATTEND Internal Medicine

== ENCOUNTER 2016-11-20 23:19 | Inpatient (IN) ==
--- NOTE | 2016-11-20 23:49 | Emergency Department Note ---
Arrival - Arrival Chief Complaint: Shortness of Breath ED Nursing Triage Note: Pt arrives via ems for further eval of CHF and elevated troponin Pt states that she has been having worsening sob and ran out of her medication about a week ago as well. At time of triage she has no complaints. Pt denies any fever or productive cough. Mode of Arrival: Stretcher Limitations: No Limitations Source: Patient Time Seen by Provider: 11/20/16 23:32 - History of Present Illness HPI Narrative: The patient was transferred here from [facility] for further evaluation. She complains of shortness of breath for the past week, worse today. She has been out of her medications, which includes Lasix, for the past 2 weeks. She also developed a cough today. She denies any fever, rhinorrhea, sore throat, chest pain, nausea, vomiting or other symptoms. She has had similar symptoms in the past and was admitted here back in August for CHF exacerbation and acute on chronic renal failure. It was felt that she will soon need dialysis. The patient says she has not followed up with nephrology or cardiology since her previous admission. Allergies/Adverse Reactions: Allergies Allergy/AdvReac Type Severity Reaction Status Date / Time No Known Allergies Allergy Verified 06/21/16 14:35 Home Medications: Home Medications Medication Instructions Recorded Confirmed Type Atorvastatin [Lipitor] 80 mg PO BEDTIME #30 tablet 02/07/16 11/20/16 Rx Carvedilol [Coreg] 25 mg PO BID #60 tablet 02/07/16 11/20/16 Rx Isosorbide Mononitrate [Isosorbide 30 mg PO DAILY 06/21/16 11/20/16 History Mononitrate ER] Calcium Carbonate Chew [Tums] 2 tablet PO BID #60 tablet 09/16/16 11/20/16 Rx Furosemide Tab [Lasix Tab] 160 mg PO BID DIURETIC #60 tablet 09/16/16 11/20/16 Rx amLODIPine [Norvasc] 10 mg PO DAILY #30 tablet 09/16/16 11/20/16 Rx hydrALAZINE TAB [Apresoline Tab] 50 mg PO TID #90 tablet 09/16/16 11/20/16 Rx Review of System - Review of System 12 point system: reviewed and no additional remarkable complaints except as stated - Review of System Constitutional: Absent: fever Head/Ears/Nose/Throat: Absent: nasal drainage, sore throat Respiratory: Present: cough, respiratory distress. Absent: wheezing Cardiovascular: Absent: chest pain Gastrointestinal: Absent: abdominal pain, nausea, vomiting Medical,Surgical,& Family Hx - Medical History Cardio: History of: CHF, Hypertension, [place] HEENT: History of: Ear Problem (ear infections) Endocrine: History of: Diabetes Mellitus (IDDM), Diabetes Mellitus (NIDDM) Respiratory: History of: Asthma Renal: History of: Renal Failure Genitourinary: History of: Recurring Urinary Tract Infections Hematology: History of: Anemia - Surgical History Cardiac Surgeries: Sugical HX of: Cardiac Catheterization (january 2016) Thoracic Surgeries: Surgical HX of;: Lithotripsy Patient denies;: Lobectomy Abdominal Surgeries: Surgical HX of: Appendectomy, Cholecystectomy Reproductive Surgeries: Surgical HX of;: Section, Dilation and Curettage (May 2016) - Family History Family History: Reports;: Family Cancer (Mother), Family Diabetes (Father) - Social History Smoking Status: Current every day smoker Frequency of Alcohol Use: None Type of Drug Use: None Exam Physical Examination: GENERAL: Alert. No acute distress. HEENT: Normocephalic and atraumatic. Slight scleral icterus. There is no nasal drainage. No pharyngeal erythema or exudate. NECK: Normal inspection. Supple. No lymphadenopathy or meningismus. LUNGS: No respiratory distress. Clear to auscultation bilaterally, no wheezes, rales or rhonchi. HEART: Regular rate and rhythm. ABDOMEN: Soft, nontender and nondistended with normoactive bowel sounds. BACK: Normal inspection. SKIN: Color normal. Warm and dry. EXTREMITIES: Nontender. Normal range of motion. Pedal edema to the upper tibias bilaterally. NEUROLOGICAL/PSYCHIATRIC: Alert and oriented -3 with normal mood and affect. Cranial nerves normal. No motor or sensory deficit. Vital Signs: Vital Signs Temperature 98.3 F 11/20/16 23:19 Pulse Rate 101 H 11/20/16 23:41 Respiratory Rate 20 11/20/16 23:41 Blood Pressure 155/96 11/20/16 23:41 O2 Sat by Pulse Oximetry 100 11/20/16 23:41 Course - Reevaluation(s) Reevaluation #1: The emergency room physician at [facility] was concerned about her CHF/ volume overload and renal failure as well as a mildly elevated troponin. Looking through her old chart, these are chronic problems. He spoke with Dr. Hobbs who was apparently not very concerned with the troponin level. She suggested admission to the hospitalist and she would consult. The hospitalist has been notified that the patient is ready for admission. Time: 23:46 Results - Labs Lab Results: I have reviewed the patients labs Labs: Labs from [facility]: White blood cell count 7.15 Hemoglobin 8.6 Hematocrit 27.3 Platelets 288 Sodium 138 Potassium 5.4 Chloride 110 Carbon dioxide 17 Creatinine 5.7 BUN 77 Glucose 180 Bilirubin 0.3 ALT 118 AST 37 CK 797 CK-MB 18 Troponin 0 0.611 - Impressions X-ray done at [facility] showed cardiomegaly. No obvious pulmonary edema Disposition Clinical Impression: Congestive heart failure, Chronic renal failure, Hyperkalemia, Anemia Case discussed with: patient Disposition: Still a Patient Condition: Stable Time of Disposition: 23:58
[2016-11-21] MEDS ORDERED: ONDANSETRON 4 MG/2 ML VIAL IV PRN (01:16)
[2016-11-21] MEDS ORDERED: ACETAMINOPHEN 325 MG TABLET PO PRN (01:16)
--- NOTE | 2016-11-21 01:33 | Hospitalist History & Physical ---
Assessment and Plan (1) Chronic renal failure Status: Chronic Assessment and plan: Patient has chronic kidney disease stage V with the volume overload may also have associated CHF patient. Patient has history of CHF with both diastolic and systolic dysfunction. Will start on IV diuretics and continue her CHF regimen. Consult renal as patient may need to be started on renal replacement therapy soon Current Visit: Yes (2) Congestive heart failure Status: Acute Assessment and plan: Patient has CHF with acute exacerbation may be complicated by the CKD with a volume overload. Diuretics has been started and so is her home regimen for CHF Current Visit: Yes (3) Anemia Status: Chronic Assessment and plan: Likely due to chronic renal disease Current Visit: Yes (4) Elevated troponin Status: Acute Assessment and plan: Patient had elevated troponin at this chronic but I will repeat troponin to make sure it is stable. will consult cardiology Current Visit: No (5) Hypertension Status: Chronic Assessment and plan: Blood pressure not controlled will resume home medications Current Visit: No Qualifiers: Hypertension type: essential hypertension Qualified Code(s): I10 - Essential (primary) hypertension (6) Acidosis Status: Chronic Assessment and plan: Due to chronic kidney disease will start on sodium bicarb Current Visit: Yes History of Present Illness Chief complaint: SOB History of present illness: Ms. Triplett is a 45 year old female with history of hypertension diabetes mellitus chronic kidney disease and CHF. She was transferred from the [facility]. She presented with the shortness of breath patient states she has been short of breath for about 1-2 weeks she has mentioned about chest pain at night before but she denies any chest pain now she has dyspnea on exertion and orthopnea sometimes. She also reported swelling of lower extremities for about a week and nonproductive cough but no fever. She denies any nausea vomiting diarrhea she has poor appetite but she has been voiding without any dysuria or hematuria. Patient reports she has been ran out of medications does not know the name of medication but her medication also include some fluid pills. At [facility] she had a lab work showed troponin 0 0.6 WBC count of 7.1 hemoglobin 8.6 hematocrit 27.3 potassium 5.4 platelet 280 BUN was 77 creatinine 5.7. ProBNP was more than 35,000 her creatinine was 6.3 in August 2016. She was seen by nephrology last admission and reported to have diabetic nephropathy. She also had echocardiogram last admission and noted to have diastolic and systolic dysfunction left ventricular ejection fractionshe was given dose of Lasix at [facility]. And transferred here to [facility] I was asked to admit the patient. Home Medications Medication Instructions Recorded Confirmed Type Atorvastatin [Lipitor] 80 mg PO BEDTIME #30 tablet 02/07/16 11/20/16 Rx Carvedilol [Coreg] 25 mg PO BID #60 tablet 02/07/16 11/20/16 Rx Isosorbide Mononitrate [Isosorbide 30 mg PO DAILY 06/21/16 11/20/16 History Mononitrate ER] Calcium Carbonate Chew [Tums] 2 tablet PO BID #60 tablet 09/16/16 11/20/16 Rx Furosemide Tab [Lasix Tab] 160 mg PO BID DIURETIC #60 tablet 09/16/16 11/20/16 Rx amLODIPine [Norvasc] 10 mg PO DAILY #30 tablet 09/16/16 11/20/16 Rx hydrALAZINE TAB [Apresoline Tab] 50 mg PO TID #90 tablet 09/16/16 11/20/16 Rx Allergies Allergy/AdvReac Type Severity Reaction Status Date / Time No Known Allergies Allergy Verified 06/21/16 14:35 Medical,Surgical,& Family Hx - Medical History Cardio: History of: CHF, Hypertension, [place] HEENT: History of: Ear Problem (ear infections) Endocrine: History of: Diabetes Mellitus (IDDM), Diabetes Mellitus (NIDDM) Respiratory: History of: Asthma Renal: History of: Renal Failure Genitourinary: History of: Recurring Urinary Tract Infections Hematology: History of: Anemia - Surgical History Cardiac Surgeries: Sugical HX of: Cardiac Catheterization (january 2016) Thoracic Surgeries: Surgical HX of;: Lithotripsy Patient denies;: Lobectomy Abdominal Surgeries: Surgical HX of: Appendectomy, Cholecystectomy Reproductive Surgeries: Surgical HX of;: Section, Dilation and Curettage (May 2016) - Family History Family History: Reports;: Family Cancer (Mother), Family Diabetes (Father) - Social History Smoking Status: Former smoker (Patient told me that she quit smoking last year) Frequency of Alcohol Use: None (Patient reported quit drinking last) Type of Drug Use: None 12 point system: reviewed and no additional remarkable complaints except as stated (Reported in HPI) Exam - Constitutional Vitals: Period Temp Pulse Resp BP Sys/Batres Pulse Ox Last 24 Hr 98.3 F-98.3 F 94-101 18-20 155-165/96-98 100-100 General appearance: normal weight, no acute distress - Head Head exam: Present: normal inspection, normocephalic, atraumatic - Eye Eye exam: Present: EOMI. Absent: conjunctival injection, scleral icterus Pupils: Present: HAILEY, normal accommodation - ENT ENT exam: Present: normal exam, normal oropharynx - Neck Neck exam: Present: normal inspection, other (Supple) - Respiratory Respiratory exam: Present: rales (Equal entry bilaterally with bilateral crackles especially left base). Absent: rhonchi - Cardiovascular Cardiovascular exam: Present: JVD, regular rate and rhythm, tachycardia - GI/Abdominal GI/Abdominal exam: Present: normal bowel sounds, soft. Absent: distended, tenderness - Extremities Exam Extremities exam: Present: edema (Bilateral 2+ lower extremity edema present ) - Neurological Exam Neurological exam: Present: alert, oriented X3 - Psychiatric Psychiatric exam: Present: normal affect, normal mood - Skin Skin exam: Present: normal color Results - Labs Lab Results: I have reviewed the past 24 hour labs
[2016-11-21] MEDS ORDERED: GLUCAGON 1 MG VIAL IM PRN (01:40)
[2016-11-21] MEDS ORDERED: DEXTROSE 50% 25 GM/50 ML SYRINGE IV PRN (01:40)
--- NOTE | 2016-11-21 08:12 | Cardiology Consult Note ---
Assessment and Plan (1) Congestive heart failure Status: Acute Assessment and plan: She will continue diuresis and offloading. Her renal failure makes managing her heart failure difficult. Some of this may be volume overload as opposed to high end diastolic pressures causing dyspnea. Current Visit: Yes (2) Elevated troponin Status: Acute Assessment and plan: Troponin elevation is likely related to renal insufficiency we are following for a pattern consistent with ACS. Current Visit: Yes (3) Chronic renal failure Status: Chronic Current Visit: Yes (4) Noncompliance with medication regimen Status: Acute Current Visit: No (5) Pericardial effusion Status: Acute Assessment and plan: We will reevaluate her pericardial effusion to be certain there is no evidence of worsening impairment of right sided filling. Current Visit: No History of Present Illness - Data of Consult Patient: known to practice within the last 3 years (Worsening dyspnea with exertion) - Consult Narrative Reason for consult: Worsening dyspnea with exertion History of present illness: Ms. Triplett is a 45 year old female with a history of both ischemic and nonischemic cardiomyopathy. She had a cardiac catheterization January 2016 which demonstrated moderate disease of the LAD distally and small intermediate ramus with moderate disease as well. She has chronic renal insufficiency diabetes dyslipidemia and hypertension. Her creatinine is now in the 6 range. She has a small pericardial effusion and has been evaluated with repeat echo done in August 2016 which showed a small effusion without evidence of impaired filling. She is now readmitted with chest discomfort. Her ejection fraction is in the 35-40% range by prior echocardiography. Laboratory evaluation is pending currently. She has had no recent fever chills cough sputum. She has had no history of syncope or palpitations. CC: Tiana Hook MD - Home Medications and Allergies Home Medications: Home Medications Medication Instructions Recorded Confirmed Type Atorvastatin [Lipitor] 80 mg PO BEDTIME #30 tablet 02/07/16 11/20/16 Rx Carvedilol [Coreg] 25 mg PO BID #60 tablet 02/07/16 11/20/16 Rx Isosorbide Mononitrate [Isosorbide 30 mg PO DAILY 06/21/16 11/20/16 History Mononitrate ER] Calcium Carbonate Chew [Tums] 2 tablet PO BID #60 tablet 09/16/16 11/20/16 Rx Furosemide Tab [Lasix Tab] 160 mg PO BID DIURETIC #60 tablet 09/16/16 11/20/16 Rx amLODIPine [Norvasc] 10 mg PO DAILY #30 tablet 09/16/16 11/20/16 Rx hydrALAZINE TAB [Apresoline Tab] 50 mg PO TID #90 tablet 09/16/16 11/20/16 Rx Allergies/Adverse Reactions: Allergies Allergy/AdvReac Type Severity Reaction Status Date / Time No Known Allergies Allergy Verified 06/21/16 14:35 Medical,Surgical,& Family Hx - Medical History Cardio: History of: CHF, Hypertension, [place] HEENT: History of: Ear Problem (ear infections) Endocrine: History of: Diabetes Mellitus (IDDM), Diabetes Mellitus (NIDDM) Respiratory: History of: Asthma Renal: History of: Renal Failure Genitourinary: History of: Recurring Urinary Tract Infections Hematology: History of: Anemia - Surgical History Cardiac Surgeries: Sugical HX of: Cardiac Catheterization (january 2016) Thoracic Surgeries: Surgical HX of;: Lithotripsy Patient denies;: Lobectomy Abdominal Surgeries: Surgical HX of: Appendectomy, Cholecystectomy Reproductive Surgeries: Surgical HX of;: Section, Dilation and Curettage (May 2016) - Family History Family History: Reports;: Family Cancer (Mother), Family Diabetes (Father) - Social History Smoking Status: Former smoker Frequency of Alcohol Use: None Type of Drug Use: None Physical Examination Vital Signs Temp Pulse Resp BP Pulse Ox 98.3 F 100 H 20 155/96 100 11/20/16 23:19 11/20/16 23:19 11/20/16 23:19 11/20/16 23:19 11/20/16 23:19 Exam: Physical examination: General: The patient is awake and alert and oriented x 3. Mood and affect are normal. HEENT: Normocephalic, sclera are clear there are no lid xanthelasmas noted. Oral mucosa is free of cyanosis or pallor. Neck: The neck is supple without JVD. Carotid upstrokes are normal volume and amplitude. There is no audible bruit. There is no palpable thyroid. Trachea is midline. Chest: Lungs: The patient is comfortable at rest without intercostal retractions or abdominal breathing. There are no adventitial sounds rales rubs rhonchi or wheezes noted. Cardiovascular: The PMI is nondisplaced. No palpable thrill S3 or S4. There is a regular rate and rhythm with no murmur rub or gallop noted. Dorsalis pedis posterior tibial are 1+ and equal and femoral pulses are 2+ and equal bilaterally. Abdomen: Abdomen is soft and nontender with normal active bowel sounds. There is no palpable mass or organomegaly noted. There is no midline bruit. Extremities exam: There is no cyanosis clubbing or edema. Skin: Skin is warm and dry without ecchymosis or urticaria or skin rash. There are no palpable nodules. Musculoskeletal: There is no kyphosis or scoliosis noted. Result/EKG - Labs Labs: Laboratory Results - last 24 hr 11/21/16 11/21/16 02:29 05:34 POC Glucose 148 H Troponin I 0.602 H - EKG EKG results: interpreted by me (Sinus rhythm with nonspecific ST-T abnormalities heart rate 90) Quality Measures - Stroke Symptom Onset Unknown: No
[2016-11-21] MEDS: INSULIN LISPRO 100 UNIT/ML SUBCUT SCH ×4 (08:36→20:30)
[2016-11-21] MEDS: CARVEDILOL 25 MG TABLET PO SCH ×2 (08:38→17:15)
[2016-11-21] MEDS: PANTOPRAZOLE 40 MG TABLET PO SCH (08:38)
[2016-11-21] MEDS: amLODIPine 10 MG TABLET PO SCH (08:38)
[2016-11-21] MEDS: FUROSEMIDE 100 MG/10 ML VIAL IV SCH ×2 (08:38→15:27)
[2016-11-21] MEDS: ISOSORBIDE MONONITRATE 30 MG TABLET PO SCH (08:38)
[2016-11-21 08:46] LABS: Basophils % 0.6 % (0.0-0.8); Eosinophils # 0.3 10*3/uL (0.0-0.87); Eosinophils % 4.1 % (0.00-10.9); Hematocrit 24.4 VOL% (35.7-47.0); Immature Granulocytes % 0.8 %; Immature Granulocytes Absolute 0.05 #; Lymphocytes # 2.2 10*3/uL (1.4-4.0); Lymphocytes % 35.2 % (21.3-54.2); Mean Corpuscular HGB Conc 32.8 GM/DL (32-36); Mean Corpuscular Hemoglobin 31 PG (27-34); Mean Corpuscular Volume 93.1 FL (87-102); Mean Platelet Volume 9.9 FL (9.6-12.0); Monocytes # 0.4 10*3/uL (0.11-0.8); Monocytes % 5.9 % (1.7-12.7); NRBC # 0.05 10*3/uL; Neutrophils # 3.4 10*3/uL (1.4-7.4); Neutrophils % 53.4 % (38.7-73.9); Platelet Count 242 T/CUMM (130-400); Red Blood Count 2.62 MC/CUMM (3.8-5.5); Red Cell Distribution Width 15.9 % (9.3-17.3); White Blood Count 6.3 T/CUMM (4-12)
[2016-11-21] MEDS: SODIUM BICARBONATE 650 MG TABLET PO SCH ×3 (08:46→20:30)
[2016-11-21] MEDS: hydrALAZINE 25 MG TABLET PO SCH ×3 (08:46→20:30)
[2016-11-21] MEDS ORDERED: ENOXAPARIN 30 MG/0.3 ML SYRINGE SUBCUT SCH (09:00)
[2016-11-21 09:21] LABS: Bilirubin,Total 0.9 MG/DL (0.2-1.0); Calcium 6.9 MG/DL (8.5-10.1); Magnesium 1.7 MG/DL (1.8-2.4); Potassium 5.1 MMOL/L (3.5-5.1)
[2016-11-21 09:23] LABS: CKMB % 2.3 %; Troponin I Only 0.623 NG/ML (0.00-0.045)
--- NOTE | 2016-11-21 10:49 | Nephrology Consult Note ---
History of Present Illness Chief complaint: SOB History of present illness: Ms. Triplett is a 45 year old female with CKD stage due to presumed diabetic nephropathy. Admitted after she ran out of meds, despite having 2 refills on her meds. [place] pharmacy would not refill. Presented volume overloaded, improved overnight with brisk diuresis. Home Medications Medication Instructions Recorded Confirmed Type Atorvastatin [Lipitor] 80 mg PO BEDTIME #30 tablet 02/07/16 11/20/16 Rx Carvedilol [Coreg] 25 mg PO BID #60 tablet 02/07/16 11/20/16 Rx Isosorbide Mononitrate [Isosorbide 30 mg PO DAILY 06/21/16 11/20/16 History Mononitrate ER] Calcium Carbonate Chew [Tums] 2 tablet PO BID #60 tablet 09/16/16 11/20/16 Rx Furosemide Tab [Lasix Tab] 160 mg PO BID DIURETIC #60 tablet 09/16/16 11/20/16 Rx amLODIPine [Norvasc] 10 mg PO DAILY #30 tablet 09/16/16 11/20/16 Rx hydrALAZINE TAB [Apresoline Tab] 50 mg PO TID #90 tablet 09/16/16 11/20/16 Rx Allergies Allergy/AdvReac Type Severity Reaction Status Date / Time No Known Allergies Allergy Verified 06/21/16 14:35 Medical,Surgical,& Family Hx - Medical History Cardio: History of: CHF, Hypertension, [place] HEENT: History of: Ear Problem (ear infections) Endocrine: History of: Diabetes Mellitus (IDDM), Diabetes Mellitus (NIDDM) Respiratory: History of: Asthma Renal: History of: Renal Failure Genitourinary: History of: Recurring Urinary Tract Infections Hematology: History of: Anemia - Surgical History Cardiac Surgeries: Sugical HX of: Cardiac Catheterization (january 2016) Thoracic Surgeries: Surgical HX of;: Lithotripsy Patient denies;: Lobectomy Abdominal Surgeries: Surgical HX of: Appendectomy, Cholecystectomy Reproductive Surgeries: Surgical HX of;: Section, Dilation and Curettage (May 2016) - Family History Family History: Reports;: Family Cancer (Mother), Family Diabetes (Father) - Social History Smoking Status: Former smoker Frequency of Alcohol Use: None Type of Drug Use: None Exam - Vital Signs Vital signs: Period Temp Pulse Resp BP Sys/Batres Pulse Ox Last 24 Hr 97.3 F-98.3 F 94-101 14-20 155-166/90-102 95-100 - General Appearance General appearance: well-developed, well-nourished, appears started age EENT: ATNC, PERRL, mucous membranes dry, hearing intact, vision intact Neck: no JVD, no thyromegaly Respiratory: no kyphosis, clear Cardiology: no murmurs, no rub, edema Gastrointestinal: normoactive bowel sounds, no tenderness Integumentary: no rash, warm and dry Neurologic: no focal deficit, no asterixis, alert and oriented x3 Musculoskeletal: no deformities, no erythema Psychiatric: mood/affect appropriate, cooperative (tearful) Results - Labs CBC & BMP: 11/21/16 08:17 11/21/16 08:17 Assessment and Plan (1) CKD (chronic kidney disease) stage 5, GFR less than 15 ml/min Problem details: eGFR 8cc/min. No uremic symptoms. No acute indication for renal replacement therapy at this time. Appears chronically worse since Jan 2016 when creatinine went from 1.9 to 4. Status: Acute Assessment and plan: Will likely require surgical hemodialysis access placement in the near future. Current Visit: Yes
--- NOTE | 2016-11-21 14:48 | EKG Report ---
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
[2016-11-21 17:10] LABS: CKMB % 2.6 %
[2016-11-21 17:12] LABS: Troponin I Only 0.564 NG/ML (0.00-0.045)
[2016-11-21] MEDS: ATORVASTATIN 80 MG TABLET PO SCH (20:30)
[2016-11-22 07:10] LABS: Basophils # 0.1 10*3/uL (0.0-0.2); Basophils % 0.9 % (0.0-0.8); Eosinophils # 0.4 10*3/uL (0.0-0.87); Hematocrit 21.8 VOL% (35.7-47.0); Immature Granulocytes % 0.9 %; Immature Granulocytes Absolute 0.05 #; Lymphocytes # 1.6 10*3/uL (1.4-4.0); Lymphocytes % 30.1 % (21.3-54.2); Mean Corpuscular Hemoglobin 31 PG (27-34); Mean Corpuscular Volume 93.2 FL (87-102); Mean Platelet Volume 10.1 FL (9.6-12.0); Monocytes # 0.4 10*3/uL (0.11-0.8); Monocytes % 6.8 % (1.7-12.7); NRBC # 0.03 10*3/uL; Neutrophils # 2.9 10*3/uL (1.4-7.4); Neutrophils % 54.3 % (38.7-73.9); Platelet Count 224 T/CUMM (130-400); Red Blood Count 2.34 MC/CUMM (3.8-5.5); White Blood Count 5.4 T/CUMM (4-12)
[2016-11-22 07:12] LABS: Hemoglobin 7.2 GM/DL (12.0-16.0)
[2016-11-22 07:42] LABS: Calcium 6.5 MG/DL (8.5-10.1); Magnesium 1.7 MG/DL (1.8-2.4); Osmolality,Calculated 308.8 MOS/KG (273-304); Potassium 4.6 MMOL/L (3.5-5.1)
[2016-11-22 07:45] LABS: Alanine Aminotransferase 70 U/L (13-56); Albumin 1.9 G/DL (3.4-5.0); Alkaline Phosphatase 103 U/L (45-117); Aspartate Amino Transferase 21 U/L (0-37); Bilirubin,Direct < 0.10 MG/DL (0.0-0.20); Bilirubin,Indirect 0.3 MG/DL (0.0-1.0); Bilirubin,Total < 0.39 MG/DL (0.2-1.0); Total Protein 4.4 G/DL (6.4-8.3)
--- NOTE | 2016-11-22 08:16 | Cardiology Progress Note ---
Assessment and Plan (1) Congestive heart failure Status: Acute Assessment and plan: She will continue diuresis and offloading. Her renal failure makes managing her heart failure difficult. Some of this may be volume overload as opposed to high end diastolic pressures causing dyspnea. 11/22: The patient is clinically improved and less dyspneic this morning. We will plan to transfuse her to see if we can improve her oxygenation. Current Visit: Yes (2) Elevated troponin Status: Acute Assessment and plan: Troponin elevation is likely related to renal insufficiency we are following for a pattern consistent with ACS. Current Visit: Yes (3) Chronic renal failure Status: Chronic Current Visit: Yes (4) Noncompliance with medication regimen Status: Acute Current Visit: No (5) Pericardial effusion Status: Acute Assessment and plan: We will reevaluate her pericardial effusion to be certain there is no evidence of worsening impairment of right sided filling. Current Visit: No Cardiology - PN: Subj Interval history: Patient admitted with dyspnea volume overload. Her counts have dropped from 24 hematocrit to 21 and we will transfuse her with packed cells. Overall she is less dyspneic this morning. We will continue as currently. Exam (Progress Note) - Constitutional Vitals: Period Temp Pulse Resp BP Sys/Batres Pulse Ox Last 24 Hr 97.0 F-98.2 F 69-74 16-19 101-128/55-72 95-98 Exam: General:no acute distress. alert and oriented, mood and affect are normal HEENT: no new lesions, sclerae are clear, mouth and pharynx benign Neck: supple, trachea midline, no JVD noted Lungs: no rales ronchi or wheeze is noted. pt comfortable without accesory muscle use to assist with breathing CV: RRR no murmur or gallop is noted. I hear a faint 2 component friction rub Abd: soft and nontender, BSNA, no masses. Ext: no cyanosis, clubbing or edema Neuro: grossly intact without focal neurologic deficit. Result/EKG - Labs CBC & BMP: 11/22/16 06:35 11/22/16 06:35 Labs: Laboratory Results - last 24 hr 11/21/16 11/21/16 11/21/16 08:17 08:17 08:17 WBC 6.3 RBC 2.62 L Hgb 8.0 L Hct 24.4 L MCV 93.1 MCH 31 MCHC 32.8 RDW 15.9 Plt Count 242 MPV 9.9 Neut % (Auto) 53.4 Lymph % (Auto) 35.2 [place] % (Auto) 5.9 Eos % (Auto) 4.1 Baso % (Auto) 0.6 Neut # (Auto) 3.4 Lymph # (Auto) 2.2 [place] # (Auto) 0.4 Eos # (Auto) 0.3 Baso # (Auto) 0.0 Immature Gran % 0.8 Nucleated RBC % 0.8 Immature Gran # 0.05 Nucleated RBCs # 0.05 Immature Plt Fraction 0.0 Sodium 143 Potassium 5.1 Chloride 120 H Carbon Dioxide 12 L Anion Gap 16.1 H BUN 75 H Creatinine 5.60 H GFR Calculation 8 BUN/Creatinine Ratio 13.00 Glucose 104 POC Glucose Calculated Osmolality 306.0 H Calcium 6.9 L Magnesium 1.7 L Total Bilirubin 0.90 Direct Bilirubin Indirect Bilirubin AST 33 ALT 95 H Alkaline Phosphatase 118 H Total Creatine Kinase 529 H CK-MB (CK-2) 12.4 H CK and CKMB Interp 2.3 Troponin I 0.623 H Total Protein 5.0 L Albumin 2.0 L Globulin 3.0 Albumin/Globulin Ratio 0.6 L 11/21/16 11/21/16 11/21/16 08:19 11:55 15:18 WBC RBC Hgb Hct MCV MCH MCHC RDW Plt Count MPV Neut % (Auto) Lymph % (Auto) [place] % (Auto) Eos % (Auto) Baso % (Auto) Neut # (Auto) Lymph # (Auto) [place] # (Auto) Eos # (Auto) Baso # (Auto) Immature Gran % Nucleated RBC % Immature Gran # Nucleated RBCs # Immature Plt Fraction Sodium Potassium Chloride Carbon Dioxide Anion Gap BUN Creatinine GFR Calculation BUN/Creatinine Ratio Glucose POC Glucose 100 131 H 178 H Calculated Osmolality Calcium Magnesium Total Bilirubin Direct Bilirubin Indirect Bilirubin AST ALT Alkaline Phosphatase Total Creatine Kinase CK-MB (CK-2) CK and CKMB Interp Troponin I Total Protein Albumin Globulin Albumin/Globulin Ratio 11/21/16 11/21/16 11/22/16 16:16 20:24 06:35 WBC 5.4 RBC 2.34 L Hgb 7.2 L Hct 21.8 L MCV 93.2 MCH 31 MCHC 33.0 RDW 16.0 Plt Count 224 MPV 10.1 Neut % (Auto) 54.3 Lymph % (Auto) 30.1 [place] % (Auto) 6.8 Eos % (Auto) 7.0 Baso % (Auto) 0.9 H Neut # (Auto) 2.9 Lymph # (Auto) 1.6 [place] # (Auto) 0.4 Eos # (Auto) 0.4 Baso # (Auto) 0.1 Immature Gran % 0.9 Nucleated RBC % 0.6 Immature Gran # 0.05 Nucleated RBCs # 0.03 Immature Plt Fraction 0.0 Sodium Potassium Chloride Carbon Dioxide Anion Gap BUN Creatinine GFR Calculation BUN/Creatinine Ratio Glucose POC Glucose 217 H Calculated Osmolality Calcium Magnesium Total Bilirubin Direct Bilirubin Indirect Bilirubin AST ALT Alkaline Phosphatase Total Creatine Kinase 455 H CK-MB (CK-2) 11.8 H CK and CKMB Interp 2.6 Troponin I 0.564 H Total Protein Albumin Globulin Albumin/Globulin Ratio 11/22/16 11/22/16 06:35 06:35 WBC RBC Hgb Hct MCV MCH MCHC RDW Plt Count MPV Neut % (Auto) Lymph % (Auto) [place] % (Auto) Eos % (Auto) Baso % (Auto) Neut # (Auto) Lymph # (Auto) [place] # (Auto) Eos # (Auto) Baso # (Auto) Immature Gran % Nucleated RBC % Immature Gran # Nucleated RBCs # Immature Plt Fraction Sodium 144 Potassium 4.6 Chloride 118 H Carbon Dioxide 14 L Anion Gap 16.6 H BUN 76 H Creatinine 6.10 H GFR Calculation 7 BUN/Creatinine Ratio 12.00 Glucose 95 POC Glucose Calculated Osmolality 308.8 H Calcium 6.5 L Magnesium 1.7 L Total Bilirubin < 0.39 Direct Bilirubin < 0.10 Indirect Bilirubin 0.3 AST 21 ALT 70 H Alkaline Phosphatase 103 Total Creatine Kinase CK-MB (CK-2) CK and CKMB Interp Troponin I Total Protein 4.4 L Albumin 1.9 L Globulin Albumin/Globulin Ratio Quality Measures - Stroke Symptom Onset Unknown: No
[2016-11-22] MEDS ORDERED: SODIUM CHLORIDE 0.9% 250 ML IV PRN (08:21)
[2016-11-22] MEDS: INSULIN LISPRO 100 UNIT/ML SUBCUT SCH ×4 (09:06→20:33)
[2016-11-22] MEDS: hydrALAZINE 25 MG TABLET PO SCH ×4 (09:46→20:32)
[2016-11-22] MEDS: SODIUM BICARBONATE 650 MG TABLET PO SCH ×3 (09:46→20:32)
[2016-11-22] MEDS: FUROSEMIDE 100 MG/10 ML VIAL IV SCH ×2 (09:46→17:39)
[2016-11-22] MEDS: ISOSORBIDE MONONITRATE 30 MG TABLET PO SCH (09:46)
[2016-11-22] MEDS: amLODIPine 10 MG TABLET PO SCH (09:46)
[2016-11-22] MEDS: PANTOPRAZOLE 40 MG TABLET PO SCH (09:46)
[2016-11-22] MEDS: CARVEDILOL 25 MG TABLET PO SCH ×2 (09:46→17:39)
--- NOTE | 2016-11-22 11:11 | ECHO Report ---
Sd Triplett Exam Date: 11/21/2016 12:08 Referring Physician: Technologist: Lou Coe Age: 45 Ht (in): 60 Wt (lb): 123 Gender: F Exam Location: [facility] Echo Indications: [place], pericardial effusion, CHF, elevated troponin, chronic renal failure BP: 101 / 63 HR: 72 Rhythm: Sinus Technical Quality: Fair IMPRESSIONS Mildly increased left ventricular cavity size. Moderate concentric left ventricular hypertrophy with diastolic dysfunction. Moderately decreased left ventricular systolic function, left ventricular ejection fraction is estimated at 20-25%. Moderately increased right ventricular size. The right atrium is mildly enlarged. The left atrium is mildly enlarged. Mildly thickened mitral valve with trace mitral regurgitation. The aortic valve is trileaflet and has normal motion. Morphologically normal tricuspid valve. Trace to mild tricuspid valve regurgitation. Tricuspid regurgitation velocities suggest a PAP of 21.3 mmHg + RAP. Morphologically normal pulmonic valve. Small pericardial effusion. No right ventricular diastolic collapse is noted. Normal size aortic root and proximal ascending aorta. MEASUREMENTS (Male / Female) Normal Values 2D ECHO LV Diastolic Diameter PLAX 5.0 cm 4.2 - 5.9 / 3.9 - 5.3 cm LV Systolic Diameter PLAX 3.9 cm LV Fractional Shortening PLAX 22.3 % IVS Diastolic Thickness 1.2 cm 0.6 - 1.0 / 0.6 - 0.9 cm LVPW Diastolic Thickness 1.2 cm 0.6 - 1.0 / 0.6 - 0.9 cm Aortic Root Diameter 2.3 cm LA Systolic Diameter LX 3.8 cm 3.0 - 4.0 / 2.7 - 3.8 cm DOPPLER TR Peak Velocity 231.0 cm/s TR Peak Gradient 21.3 mmHg FINDINGS Left Ventricle Mildly increased left ventricular cavity size. Moderate concentric left ventricular hypertrophy with diastolic dysfunction. Moderately decreased left ventricular systolic function, left ventricular ejection fraction is estimated at 20-25%. Right Ventricle Moderately increased right ventricular size. Right Atrium The right atrium is mildly enlarged. Left Atrium The left atrium is mildly enlarged. Mitral Valve Mildly thickened mitral valve with trace mitral regurgitation. Aortic Valve The aortic valve is trileaflet and has normal motion. Tricuspid Valve Morphologically normal tricuspid valve. Trace to mild tricuspid valve regurgitation. Tricuspid regurgitation velocities suggest a PAP of 21.3 mmHg + RAP. Pulmonic Valve Morphologically normal pulmonic valve. Pericardium Small pericardial effusion. No right ventricular diastolic collapse is noted Aorta Normal size aortic root and proximal ascending aorta. Donnie Valencia MD (Electronically Signed) Final Date: 22 November 2016 11:09
[2016-11-22 12:23] LABS: Hepatitis A Ab IgM Quant 0.14 Index; Hepatitis A Ab IgM Result Negative (Negative); Hepatitis B Core IgM Quant 0.05 Index; Hepatitis B Core IgM Result Negative (Negative); Hepatitis B Surface Ag Quant 0.98 Index; Hepatitis B Surface Ag Result Negative (Negative); Hepatitis C Virus Ab Quant 0.09 Index; Hepatitis C Virus Ab Result Negative (Negative)
--- NOTE | 2016-11-22 12:48 | Hospitalist Progress Note ---
Assessment and Plan (1) Diabetes Status: Chronic Assessment and plan: SSI Current Visit: No Qualifiers: Diabetes mellitus type: other specified (including MELANIA) Diabetes mellitus complication status: with kidney complications Chronic kidney disease stage: stage 3 (moderate) (2) Congestive heart failure Status: Acute Assessment and plan: Exacerbation secondary to not taking medications in 2 weeks Improved with IV lasix Cardiology on board Current Visit: Yes (3) Anemia Status: Chronic Assessment and plan: Most likely secondary to chronic disease Already receiving 2 units PRBCs Will order iron studies for the am. Current Visit: Yes (4) CKD (chronic kidney disease) stage 5, GFR less than 15 ml/min Problem details: eGFR 8cc/min. No uremic symptoms. No acute indication for renal replacement therapy at this time. Appears chronically worse since Jan 2016 when creatinine went from 1.9 to 4. Status: Acute Assessment and plan: Nephrology managing Plan for cath placement tomorrow with initiation of HD Current Visit: Yes Hospitalist: Subjective Interval history: No acute events overnight. She denies sob at rest or exertion. She has no complaints. Exam - Constitutional Vitals: Period Temp Pulse Resp BP Sys/Batres Pulse Ox Last 24 Hr 97.0 F-98.1 F 69-80 16-19 104-128/53-72 94-98 General appearance: normal weight - Head Head exam: Present: normocephalic, atraumatic - Eye Eye exam: Present: EOMI Pupils: Present: HAILEY - ENT ENT exam: Present: normal exam - Neck Neck exam: Present: normal inspection - Respiratory Respiratory exam: Present: clear to auscultation bilaterally - Cardiovascular Cardiovascular exam: Present: regular rate and rhythm - GI/Abdominal GI/Abdominal exam: Present: normal bowel sounds, soft. Absent: tenderness, rebound - Extremities Exam Extremities exam: Present: normal inspection - Back Exam Back exam: Present: normal inspection - Neurological Exam Neurological exam: Present: alert, oriented X3 - Psychiatric Psychiatric exam: Present: normal affect, normal mood - Skin Skin exam: Present: warm, intact Results - Labs CBC & BMP: 11/22/16 06:35 11/22/16 06:35 Quality Measures - Stroke Symptom Onset Unknown: No
--- NOTE | 2016-11-22 13:35 | Nephrology Progress Note ---
Nephrology - PN: Subj Interval history: Pt states she feels better today. Creatinine up to 6.1 for eGFR 7cc/min. Exam (PN)-Nephrology - Vital Signs Vital signs: Period Temp Pulse Resp BP Sys/Batres Pulse Ox Last 24 Hr 97.0 F-98.1 F 69-80 16-19 104-128/53-72 94-98 - General Appearance General appearance: well-developed, well-nourished EENT: ATNC, PERRL, mucous membranes dry, hearing intact, vision intact Neck: no JVD, no thyromegaly Respiratory: no kyphosis, clear Cardiology: no murmurs, no rub Gastrointestinal: normoactive bowel sounds, no tenderness Integumentary: no rash, warm and dry Neurologic: no focal deficit, no asterixis, alert and oriented x3 Musculoskeletal: no deformities, no erythema Psychiatric: mood/affect appropriate, cooperative - Lab 11/22/16 06:35 11/22/16 06:35 Most recent lab results Calcium 6.5 MG/DL (8.5-10.1) L 11/22/16 06:35 Magnesium 1.7 MG/DL (1.8-2.4) L 11/22/16 06:35 Assessment and Plan (1) CKD (chronic kidney disease) stage 5, GFR less than 15 ml/min Problem details: eGFR 7cc/min. No uremic symptoms. No acute indication for renal replacement therapy at this time. Appears chronically worse since Jan 2016 when creatinine went from 1.9 to 4. Status: Acute Assessment and plan: Discussed with patient that I feel she would be best served to initiate hemodialysis. She agrees with plan. Hepatitis panel today. NPO after midnight. Surgery consult for placement of tunneled IJ HD catheter tomorrow with HD initiation to follow daily x 3 days. IV contrast with coronary angiography is no longer contraindicated if planned by cardiology. Current Visit: Yes
[2016-11-22] MEDS: ATORVASTATIN 80 MG TABLET PO SCH (20:32)
[2016-11-23 05:31] LABS: Basophils % 0.9 % (0.0-0.8); Eosinophils # 0.3 10*3/uL (0.0-0.87); Eosinophils % 6.4 % (0.00-10.9); Hematocrit 27.7 VOL% (35.7-47.0); Hemoglobin 9.3 GM/DL (12.0-16.0); Immature Granulocytes % 0.9 %; Immature Granulocytes Absolute 0.04 #; Lymphocytes # 1.6 10*3/uL (1.4-4.0); Lymphocytes % 33.6 % (21.3-54.2); Mean Corpuscular HGB Conc 33.6 GM/DL (32-36); Mean Corpuscular Hemoglobin 31 PG (27-34); Mean Corpuscular Volume 91.1 FL (87-102); Monocytes # 0.4 10*3/uL (0.11-0.8); Monocytes % 8.1 % (1.7-12.7); NRBC # 0.02 10*3/uL; Neutrophils # 2.3 10*3/uL (1.4-7.4); Neutrophils % 50.1 % (38.7-73.9); Platelet Count 211 T/CUMM (130-400); Red Blood Count 3.04 MC/CUMM (3.8-5.5); Red Cell Distribution Width 16.4 % (9.3-17.3); White Blood Count 4.7 T/CUMM (4-12)
[2016-11-23 06:06] LABS: Calcium 6.2 MG/DL (8.5-10.1); Magnesium 1.7 MG/DL (1.8-2.4); Osmolality,Calculated 306.8 MOS/KG (273-304); Potassium 4.4 MMOL/L (3.5-5.1)
[2016-11-23 06:07] LABS: % Iron Saturation 25.1 % (18-50); Ferritin 210.4 ng/ml (8-252)
[2016-11-23] MEDS: ISOSORBIDE MONONITRATE 30 MG TABLET PO SCH (09:04)
[2016-11-23] MEDS: INSULIN LISPRO 100 UNIT/ML SUBCUT SCH ×4 (09:04→20:27)
[2016-11-23] MEDS: PANTOPRAZOLE 40 MG TABLET PO SCH (09:05)
[2016-11-23] MEDS: amLODIPine 10 MG TABLET PO SCH (09:05)
[2016-11-23] MEDS: CARVEDILOL 25 MG TABLET PO SCH ×2 (09:05→16:11)
[2016-11-23] MEDS: SODIUM BICARBONATE 650 MG TABLET PO SCH (09:05)
[2016-11-23] MEDS: hydrALAZINE 25 MG TABLET PO SCH ×3 (09:06→20:27)
[2016-11-23] MEDS: CALCITRIOL 0.25 MCG CAPSULE PO SCH (09:07)
[2016-11-23] MEDS: FUROSEMIDE 100 MG/10 ML VIAL IV SCH ×2 (09:07→15:13)
--- NOTE | 2016-11-23 09:35 | General Surgery Consult Note ---
Assessment and Plan - Time spent with patient Time spent with patient: Greater than 30 minutes (1) Elevated troponin Status: Acute Current Visit: No (2) Hypertension Status: Chronic Assessment and plan: 45-year-old female admitted by the hospitalist service on 2016 with volume overload due to acute on chronic renal failure. Nephrology and cardiology are both following. Cardiology has cleared the patient for surgery. Nephrology is requesting a tunneled hemodialysis catheter for the initiation of hemodialysis today. Dr. Pacheco has seen and examined patient and he will take her to the OR today for tunneled hemodialysis catheter placement. She will need to follow-up in clinic 1 week after discharge for vein mapping and permanent access. Current Visit: No Qualifiers: Hypertension type: essential hypertension Qualified Code(s): I10 - Essential (primary) hypertension (3) Cardiomyopathy Status: Chronic Current Visit: No (4) CHF exacerbation Status: Chronic Current Visit: No Qualifiers: Congestive heart failure type: systolic Qualified Code(s): I50.23 - Acute on chronic systolic (congestive) heart failure (5) Acute on chronic renal failure Status: Acute Current Visit: No (6) CAD (coronary artery disease) Status: Chronic Current Visit: No Qualifiers: Coronary Disease-Associated Artery/Lesion type: [place] artery [place] vs. transplanted heart: [place] heart Associated angina: without angina Qualified Code(s): I25.10 - Atherosclerotic heart disease of [place] coronary artery without angina pectoris History of Present Illness Chief complaint: Lower extremity edema History of present illness: Ms. Triplett is a 45 year old female with history of hypertension, anemia, congestive heart failure, and chronic renal failure with medicine noncompliance admitted by the hospitalist service on 11/21/2016 with volume overload. She was started on IV diuretics, renal and cardiology have been following. Patient had elevated troponins but this is chronically elevated and most likely due to her renal insufficiency as opposed to ACS. Echo done shows left ventricular hypertrophy with diastolic dysfunction with an EF of 20-25%. Patient is afebrile and her vital signs are stable. Her urine output is okay and she has no uremic symptoms. She received blood transfusion yesterday with her H&H up to 9.3/27.7 this morning. Her electrolytes are okay, but her creatinine is up now to 6.4. Dr. Bennett is initiating hemodialysis. Upon exam patient is lying in bed comfortably. Her chest is clear and she has no lower extremity edema. She denies headache, dysphagia, chest pain, shortness of breath, abdominal pain, or muscle weakness. Cardiology has cleared her for surgery. Dr. Pacheco has been consulted to place tunneled catheter. Home Medications Medication Instructions Recorded Confirmed Type Atorvastatin [Lipitor] 80 mg PO BEDTIME #30 tablet 02/07/16 11/20/16 Rx Carvedilol [Coreg] 25 mg PO BID #60 tablet 02/07/16 11/20/16 Rx Isosorbide Mononitrate [Isosorbide 30 mg PO DAILY 06/21/16 11/20/16 History Mononitrate ER] Calcium Carbonate Chew [Tums] 2 tablet PO BID #60 tablet 09/16/16 11/20/16 Rx Furosemide Tab [Lasix Tab] 160 mg PO BID DIURETIC #60 tablet 09/16/16 11/20/16 Rx amLODIPine [Norvasc] 10 mg PO DAILY #30 tablet 09/16/16 11/20/16 Rx hydrALAZINE TAB [Apresoline Tab] 50 mg PO TID #90 tablet 09/16/16 11/20/16 Rx Allergies Allergy/AdvReac Type Severity Reaction Status Date / Time No Known Allergies Allergy Verified 06/21/16 14:35 Medical,Surgical,& Family Hx - Medical History Cardio: History of: CHF, Hypertension, [place] HEENT: History of: Ear Problem (ear infections) Endocrine: History of: Diabetes Mellitus (IDDM), Diabetes Mellitus (NIDDM) Respiratory: History of: Asthma Renal: History of: Renal Failure Genitourinary: History of: Recurring Urinary Tract Infections Hematology: History of: Anemia - Surgical History Cardiac Surgeries: Sugical HX of: Cardiac Catheterization (january 2016) Thoracic Surgeries: Surgical HX of;: Lithotripsy Patient denies;: Lobectomy Abdominal Surgeries: Surgical HX of: Appendectomy, Cholecystectomy Reproductive Surgeries: Surgical HX of;: Section, Dilation and Curettage (May 2016) - Family History Family History: Reports;: Family Cancer (Mother), Family Diabetes (Father) - Social History Smoking Status: Former smoker Frequency of Alcohol Use: None Type of Drug Use: None Review of systems: A complete 10 system review of systems was obtained and pertinent positives and negatives per HPI Exam - Constitutional Vitals: Period Temp Pulse Resp BP Sys/Batres Pulse Ox Last 24 Hr 97.4 F-98.3 F 72-78 16-18 99-117/49-71 94-97 Exam: Constitutional System: No distress. No tremulousness. Head: Normocephalic, atraumatic. Ears, Nose and Throat System: No evidence of Otitis or Mastoiditis. No epistaxis or discharge Eyes System: Pupils equal, round, and reactive. Extraocular muscles intact. Neck: Supple, without adenopathy, No jugular venous distention. No thyromegaly, neck mass, or prior surgery apparent. Respiratory System: Chest clear to auscultation. Cardiovascular System: Heart with regular rate and rhythm. No murmur. GI System: Abdomen soft, nontender. Normo active bowel sounds present. Musculoskeletal System: limbs with no pedal edema. Full distal pulses. Neurological System: No discernable sensory deficit. No aphasia Psychiatric System: Conversation is rational Quality Measures - VTE Contraindication to Pharmacological VTE Prophylaxis: High Risk of Bleeding - Stroke Symptom Onset Unknown: No Results - Labs CBC & BMP: 11/23/16 04:30 11/23/16 04:30 Lab Results: I have reviewed the past 24 hour labs
--- NOTE | 2016-11-23 09:38 | Cardiology Progress Note ---
I, Keiar Grimes RN, am scribing for, and in the presence of, David Ramos MD 09:35. Assessment and Plan (1) Congestive heart failure Status: Acute Assessment and plan: She is on Lasix 80 mg twice daily. She reports her breathing has improved, edema has also improved. Current Visit: Yes (2) Elevated troponin Status: Acute Assessment and plan: This is likely related to renal insufficiency. She certainly clinically does not have any acute ischemic symptomatology or findings. Current Visit: Yes (3) Chronic renal failure Status: Chronic Assessment and plan: She is scheduled for HD catheter placement today, nephrology is following. Current Visit: Yes (4) Noncompliance with medication regimen Status: Acute Assessment and plan: Certainly makes her therapy and management more difficult Current Visit: No (5) Pericardial effusion Status: Acute Assessment and plan: This is stable by echocardiograms. Current Visit: Yes Cardiology - PN: Subj Interval history: [employer] Mail Marketer: Dr. Velez Summary: Ms. Triplett is a 45-year-old female with a history of both ischemic and nonischemic cardiomyopathy, chronic renal insufficiency, diabetes, dyslipidemia , and hypertension. Heart catheterization in January 2016 showed moderate disease of the LAD distally and small intermediate ramus of moderate disease as well. It was decided to treat medically with consideration of staged PCI in the future if medical therapy failed. Creatinine has been elevated this admission and nephrology is following. Apparently she had ran out of her medications. She presented to [facility] November 20 in transfer from another hospital with complaints of chest pain shortness of breath. Echocardiogram done November 21 with ejection fraction of 20-25% and small pericardial effusion. She was anemic and transfused with 2 units of blood. Troponin was slightly elevated at 0.602 and remained flat, this is likely related to renal insufficiency. November 23, 2016: Ms. Triplett is seen resting in bed no acute distress. She denies any chest pain or shortness of breath at this time. She tells me her ankles were swollen on admission, I note no swelling at this time. She is scheduled for HD catheter placement this morning. After receiving blood product yesterday , her H&H is improved at 9.3 and 27.7. She is currently on Lasix 80 mg IV twice daily. Patient personally interviewed and examined and discussed with Keira Grimes RN. I agree with the assessment. I have reviewed the old chart and notes from yesterday. The patient is from cardiac standpoint stable. She denies shortness of breath or any chest pain. She has moderate coronary disease based on records. She has a significant cardiomyopathy which is been somewhat chronic. Her troponin is borderline more likely related to her renal sufficiency. She certainly is not demonstrating any evidence of acute ischemic event. In fact on my arrival the room she was working on making a bead bracelet. Generally she is feeling better and making good progress. Because her BUN and creatinine are continuing to increase she is for hemodialysis catheter today and for possible dialysis. Dialysis may also assist in volume management. I think in general this patient will be at low cardiac risk for planned dialysis catheter placement. Exam (Progress Note) - Constitutional Vitals: Period Temp Pulse Resp BP Sys/Batres Pulse Ox Last 24 Hr 97.4 F-98.3 F 72-78 16-18 99-117/49-71 94-97 General appearance: normal weight, no acute distress - Head Head exam: Absent: abrasion, hematoma - Eye Eye exam: Absent: periorbital swelling, laceration to eyelids - Neck Neck exam: Absent: tenderness - Respiratory Respiratory exam: Present: clear to auscultation bilaterally. Absent: accessory muscle use, chest wall tenderness - Cardiovascular Cardiovascular exam: Present: regular rate and rhythm. Absent: systolic murmur - GI/Abdominal GI/Abdominal exam: Present: normal bowel sounds, soft. Absent: distended, tenderness - Extremities Exam Extremities exam: Absent: calf tenderness, edema - Neurological Exam Neurological exam: Present: alert, oriented X3 - Psychiatric Psychiatric exam: Present: normal affect, normal mood - Skin Skin exam: Present: warm, dry Result/EKG - Labs CBC & BMP: 11/23/16 04:30 11/23/16 04:30 Lab Results: I have reviewed the past 24 hour labs Labs: Laboratory Results - last 24 hr 11/22/16 11/22/16 11/22/16 06:32 06:35 12:05 WBC RBC Hgb Hct MCV MCH MCHC RDW Plt Count MPV Neut % (Auto) Lymph % (Auto) [place] % (Auto) Eos % (Auto) Baso % (Auto) Neut # (Auto) Lymph # (Auto) [place] # (Auto) Eos # (Auto) Baso # (Auto) Immature Gran % Nucleated RBC % Immature Gran # Nucleated RBCs # Immature Plt Fraction Sodium Potassium Chloride Carbon Dioxide Anion Gap BUN Creatinine GFR Calculation BUN/Creatinine Ratio Glucose POC Glucose 181 H Hemoglobin A1c Calculated Osmolality Calcium Magnesium Iron TIBC % Saturation Ferritin Hepatitis A IgM Ab Negative Hep Bs Antigen Negative Hep B Core IgM Ab Negative Hepatitis C Antibody Negative Blood Type O POSITIVE Antibody Screen Negative Crossmatch See Detail 11/22/16 11/22/16 11/23/16 16:05 19:59 04:30 WBC 4.7 RBC 3.04 L D Hgb 9.3 L D Hct 27.7 L MCV 91.1 MCH 31 MCHC 33.6 RDW 16.4 Plt Count 211 MPV 10.0 Neut % (Auto) 50.1 Lymph % (Auto) 33.6 [place] % (Auto) 8.1 Eos % (Auto) 6.4 Baso % (Auto) 0.9 H Neut # (Auto) 2.3 Lymph # (Auto) 1.6 [place] # (Auto) 0.4 Eos # (Auto) 0.3 Baso # (Auto) 0.0 Immature Gran % 0.9 Nucleated RBC % 0.4 Immature Gran # 0.04 Nucleated RBCs # 0.02 Immature Plt Fraction 0.0 Sodium Potassium Chloride Carbon Dioxide Anion Gap BUN Creatinine GFR Calculation BUN/Creatinine Ratio Glucose POC Glucose 145 H 244 H Hemoglobin A1c Calculated Osmolality Calcium Magnesium Iron TIBC % Saturation Ferritin Hepatitis A IgM Ab Hep Bs Antigen Hep B Core IgM Ab Hepatitis C Antibody Blood Type Antibody Screen Crossmatch 11/23/16 11/23/16 11/23/16 04:30 04:30 04:30 WBC RBC Hgb Hct MCV MCH MCHC RDW Plt Count MPV Neut % (Auto) Lymph % (Auto) [place] % (Auto) Eos % (Auto) Baso % (Auto) Neut # (Auto) Lymph # (Auto) [place] # (Auto) Eos # (Auto) Baso # (Auto) Immature Gran % Nucleated RBC % Immature Gran # Nucleated RBCs # Immature Plt Fraction Sodium 144 Potassium 4.4 Chloride 116 H Carbon Dioxide 15 L Anion Gap 17.4 H BUN 75 H Creatinine 6.40 H GFR Calculation 6 BUN/Creatinine Ratio 11.00 Glucose 88 POC Glucose Hemoglobin A1c 6.2 Calculated Osmolality 306.8 H Calcium 6.2 L Magnesium 1.7 L Iron 42 L TIBC 167 L % Saturation 25.1 Ferritin 210.4 Hepatitis A IgM Ab Hep Bs Antigen Hep B Core IgM Ab Hepatitis C Antibody Blood Type Antibody Screen Crossmatch 11/23/16 07:17 WBC RBC Hgb Hct MCV MCH MCHC RDW Plt Count MPV Neut % (Auto) Lymph % (Auto) [place] % (Auto) Eos % (Auto) Baso % (Auto) Neut # (Auto) Lymph # (Auto) [place] # (Auto) Eos # (Auto) Baso # (Auto) Immature Gran % Nucleated RBC % Immature Gran # Nucleated RBCs # Immature Plt Fraction Sodium Potassium Chloride Carbon Dioxide Anion Gap BUN Creatinine GFR Calculation BUN/Creatinine Ratio Glucose POC Glucose 98 Hemoglobin A1c Calculated Osmolality Calcium Magnesium Iron TIBC % Saturation Ferritin Hepatitis A IgM Ab Hep Bs Antigen Hep B Core IgM Ab Hepatitis C Antibody Blood Type Antibody Screen Crossmatch Quality Measures - Stroke Symptom Onset Unknown: No I, David Ramos MD, personally performed the services described in this documentation, ascribed by Keira Grimes RN in my presence, and it is both accurate and complete 938 .
--- NOTE | 2016-11-23 10:40 | Hospitalist Progress Note ---
Assessment and Plan (1) Diabetes Status: Chronic Assessment and plan: SSI Current Visit: No Qualifiers: Diabetes mellitus type: other specified (including MELANIA) Diabetes mellitus complication status: with kidney complications Chronic kidney disease stage: stage 3 (moderate) (2) Congestive heart failure Status: Acute Assessment and plan: Exacerbation secondary to not taking medications in 2 weeks Improved with IV lasix Cardiology on board Current Visit: Yes (3) Anemia Status: Chronic Assessment and plan: Most likely secondary to chronic disease Received 2 units PRBCs 11/22/16 Responded appropriately Current Visit: Yes (4) CKD (chronic kidney disease) stage 5, GFR less than 15 ml/min Problem details: eGFR 7cc/min. No uremic symptoms. No acute indication for renal replacement therapy at this time. Appears chronically worse since Jan 2016 when creatinine went from 1.9 to 4. Status: Acute Assessment and plan: Nephrology managing Plan for cath placement tomorrow with initiation of HD Current Visit: Yes Hospitalist: Subjective Interval history: No acute events overnight. She has no complaints. She will have tunnelled HD cath placed today followed by initiation of HD. Exam - Constitutional Vitals: Period Temp Pulse Resp BP Sys/Batres Pulse Ox Last 24 Hr 97.4 F-98.3 F 72-78 16-18 99-137/49-76 94-97 General appearance: normal weight - Head Head exam: Present: normocephalic, atraumatic - Eye Eye exam: Present: EOMI Pupils: Present: HAILEY - ENT ENT exam: Present: normal exam - Neck Neck exam: Present: normal inspection - Respiratory Respiratory exam: Present: clear to auscultation bilaterally. Absent: rhonchi, wheezes - Cardiovascular Cardiovascular exam: Present: regular rate and rhythm - GI/Abdominal GI/Abdominal exam: Present: normal bowel sounds, soft - Extremities Exam Extremities exam: Present: normal inspection - Back Exam Back exam: Present: normal inspection - Neurological Exam Neurological exam: Present: alert, oriented X3 - Psychiatric Psychiatric exam: Present: normal affect, normal mood - Skin Skin exam: Present: warm, intact Results - Labs CBC & BMP: 11/23/16 04:30 11/23/16 04:30 Quality Measures - VTE Contraindication to Pharmacological VTE Prophylaxis: High Risk of Bleeding - Stroke Symptom Onset Unknown: No
--- NOTE | 2016-11-23 12:01 | Nephrology Progress Note ---
Nephrology - PN: Subj Interval history: Pt in good spirits. Plan for tunneled HD catheter placment today with initiation of hemodialysis to follow. Exam (PN)-Nephrology - Vital Signs Vital signs: Period Temp Pulse Resp BP Sys/Batres Pulse Ox Last 24 Hr 97.4 F-98.3 F 72-78 16-18 99-137/49-76 94-97 - General Appearance General appearance: well-developed, well-nourished EENT: ATNC, PERRL, mucous membranes dry, hearing intact, vision intact Neck: no JVD, no thyromegaly Respiratory: no kyphosis, clear Cardiology: no murmurs, no rub Gastrointestinal: normoactive bowel sounds, no tenderness Integumentary: no rash, warm and dry Neurologic: no focal deficit, no asterixis, alert and oriented x3 Musculoskeletal: no deformities, no erythema Psychiatric: mood/affect appropriate, cooperative - Lab 11/23/16 04:30 11/23/16 04:30 Most recent lab results Calcium 6.2 MG/DL (8.5-10.1) L 11/23/16 04:30 Magnesium 1.7 MG/DL (1.8-2.4) L 11/23/16 04:30 Assessment and Plan (1) CKD (chronic kidney disease) stage 5, GFR less than 15 ml/min Problem details: HD initiation today after catheter placement. ESRD education by Ms Maryam Tanner. Status: Acute Assessment and plan: Tunneled IJ HD catheter today with HD initiation to follow daily x 3 days. HD orders written. IV contrast with coronary angiography is no longer contraindicated if planned by cardiology. Current Visit: Yes
[2016-11-23] MEDS ORDERED: LIDOCAINE 1%/EPI INJ 20 ML VIAL ONE (12:13)
[2016-11-23] MEDS ORDERED: HEPARIN 5,000 UNIT/1 ML VIAL ONE (12:13)
[2016-11-23] MEDS ORDERED: TISSUE ADHESIVE 1 EACH APPLICATOR TOP ONE (12:13)
[2016-11-23] MEDS ORDERED: BUPIVACAINE 0.25% 50 ML VIAL ONE (12:13)
[2016-11-23] MEDS ORDERED: PROPOFOL 200 MG/20 ML VIAL IV ONE (13:39)
[2016-11-23] MEDS ORDERED: MIDAZOLAM 2 MG/2 ML VIAL ONE (13:40)
[2016-11-23] MEDS ORDERED: fentaNYL 100 MCG/2 ML VIAL ONE (13:40)
--- NOTE | 2016-11-23 14:18 | XRay Report ---
Exam: XR chest 1V Date: 11/23/2016 1:48 PM Comparison: 09/12/2016 Indication: Status post dialysis catheter placement Technique:[Portable AP sitting chest] Findings: Stable cardiomegaly. Interval insertion of right IJ double-lumen venous dialysis catheter with tips at junction of SVC and right atrium. Progressive diffuse parenchymal findings with small left pleural effusion. No evidence of pneumothorax. Stable mediastinum and osseous structures. Impression: Satisfactory insertion of venous dialysis catheter with no pneumothorax. [id number] CHF/fluid overload with small left pleural effusion. PROCEDURE INTERPRETED AT [facility] DEPARTMENT OF RADIOLOGY Final Report Signed by: Dr. Hemalatha Ortiz
--- NOTE | 2016-11-23 14:46 | Operative Note ---
Date of procedure: 11/23/16 Pre-op diagnosis: End-stage renal disease Post-op diagnosis: same Procedure: Procedure performed: Placement of right internal jugular tunneled hemodialysis catheter #2 ultrasound-guided venous access Procedure in detail: After informed consent was obtained, patient was taken operating suite placed upon the operating table. After monitored anesthesia was induced the bilateral neck and chest were prepped and draped in usual sterile fashion. After procedural pause local anesthetic infiltrated in skin and subcutaneous tissue the right neck. Ultrasound brought over through a sterile sleeve covering ultrasound the right neck revealed patent and compressible right internal jugular vein. Right internal jugular vein was then accessed using an 18-gauge Seldinger needle under ultrasound guidance on the first attempt. There was return of nonpulsatile dark red blood. Guidewire inserted without resistance. Guidewire was seen coursing through the visualized portion of the right internal jugular vein on ultrasound. Fluoroscopy brought onto the field and the guidewire appeared to be coursing in the appropriate position. Next a 19 cm cuffed hemodialysis catheter was tunneled from separate incision in the right chest wall up to the base the right neck. Dilator and sheath were placed over the guidewire using Seldinger technique under fluoroscopic guidance. Dilator and guidewire were removed leaving the sheath in place. Catheter inserted in the sheath peeled away leaving the catheter tip in Spear vena cava. Catheter withdrew and flushed easily and was locked with heparinized saline. It was secured in place with 2- 0 nylon. Incisions closed with 2-0 nylon. Sterile dressings applied. Patient was taken recovery in stable condition. All lap and needle counts correct in the case. Anesthesia: MAC, local Surgeon / Physician: Esteban Pacheco Estimated blood loss: other (Less than 10 cc) Specimens: other Condition: stable Disposition: PACU Results - Labs CBC & BMP: 11/23/16 04:30 11/23/16 04:30 Discharge Plan - Discharge Medications No Action Atorvastatin [Lipitor] 80 mg PO BEDTIME #30 tablet Carvedilol [Coreg] 25 mg PO BID #60 tablet Isosorbide Mononitrate [Isosorbide Mononitrate ER] 30 mg PO DAILY Calcium Carbonate Chew [Tums] 2 tablet PO BID #60 tablet hydrALAZINE TAB [Apresoline Tab] 50 mg PO TID #90 tablet amLODIPine [Norvasc] 10 mg PO DAILY #30 tablet Furosemide Tab [Lasix Tab] 160 mg PO BID DIURETIC #60 tablet - Follow Up or Referral - Forms/Instructions
--- NOTE | 2016-11-23 16:18 | Anesthesia Post-Op ---
Anesthesia Post OP - Post Ansesthetic Evaluation Patient seen in post op: Yes Resp: within normal limits CV: within normal limits Mental: within normal limits Temp: within normal limits Btwo-[id number]-[id number]: within normal limits Nausea and Vomiting: within normal limits Pain: within normal limits
[2016-11-23] MEDS ORDERED: HEPARIN 10,000 UNIT/10 ML VIAL IV SCH (17:30)
[2016-11-23] MEDS: ATORVASTATIN 80 MG TABLET PO SCH (20:27)
[2016-11-24 06:27] LABS: Basophils % 0.6 % (0.0-0.8); Eosinophils # 0.2 10*3/uL (0.0-0.87); Eosinophils % 3.4 % (0.00-10.9); Hemoglobin 9.9 GM/DL (12.0-16.0); Immature Granulocytes % 0.4 %; Immature Granulocytes Absolute 0.02 #; Lymphocytes # 1.3 10*3/uL (1.4-4.0); Mean Corpuscular HGB Conc 34.1 GM/DL (32-36); Mean Corpuscular Hemoglobin 31 PG (27-34); Mean Corpuscular Volume 90.3 FL (87-102); Mean Platelet Volume 10.2 FL (9.6-12.0); Monocytes # 0.4 10*3/uL (0.11-0.8); Neutrophils # 2.9 10*3/uL (1.4-7.4); Neutrophils % 60.6 % (38.7-73.9); Platelet Count 178 T/CUMM (130-400); Red Blood Count 3.21 MC/CUMM (3.8-5.5); Red Cell Distribution Width 16.4 % (9.3-17.3); White Blood Count 4.7 T/CUMM (4-12)
[2016-11-24 07:00] LABS: Calcium 6.4 MG/DL (8.5-10.1)
[2016-11-24 07:01] LABS: Magnesium 1.6 MG/DL (1.8-2.4); Potassium 3.9 MMOL/L (3.5-5.1)
[2016-11-24] MEDS: CARVEDILOL 25 MG TABLET PO SCH ×3 (08:51→16:38)
[2016-11-24] MEDS: CALCITRIOL 0.25 MCG CAPSULE PO SCH (08:51)
[2016-11-24] MEDS: amLODIPine 10 MG TABLET PO SCH (08:51)
[2016-11-24] MEDS: ISOSORBIDE MONONITRATE 30 MG TABLET PO SCH (08:51)
[2016-11-24] MEDS: FUROSEMIDE 100 MG/10 ML VIAL IV SCH ×2 (08:52→15:04)
[2016-11-24] MEDS: PANTOPRAZOLE 40 MG TABLET PO SCH (08:52)
[2016-11-24] MEDS: hydrALAZINE 25 MG TABLET PO SCH ×3 (08:52→21:46)
[2016-11-24] MEDS: INSULIN LISPRO 100 UNIT/ML SUBCUT SCH ×4 (08:56→21:43)
--- NOTE | 2016-11-24 10:24 | Nephrology Progress Note ---
Nephrology - PN: Subj Interval history: Pt tolerated 2 hrs HD yesterday with adequate delivered dose. No UF removed. Pt states she feels a little better. Exam (PN)-Nephrology - Vital Signs Vital signs: Period Temp Pulse Resp BP Sys/Batres Pulse Ox Last 24 Hr 98 F-100.3 F 74-95 14-18 95-146/53-81 92-97 - General Appearance General appearance: well-nourished, appears started age EENT: ATNC, PERRL, mucous membranes moist, hearing intact, vision intact Neck: no JVD, no thyromegaly Respiratory: no kyphosis, clear Cardiology: no murmurs, no rub Gastrointestinal: normoactive bowel sounds, no tenderness Integumentary: no rash, warm and dry Neurologic: no focal deficit, no asterixis, alert and oriented x3 Musculoskeletal: no deformities, no erythema Psychiatric: mood/affect appropriate, cooperative - Lab 11/24/16 04:57 11/24/16 04:57 Most recent lab results Calcium 6.4 MG/DL (8.5-10.1) L 11/24/16 04:57 Magnesium 1.6 MG/DL (1.8-2.4) L 11/24/16 04:57 Assessment and Plan (1) CKD (chronic kidney disease) stage 5, GFR less than 15 ml/min Problem details: Day #2/3 daily HD initiation today. UF 2L as tolerated by hemodynamics. ESRD education by Maryam Ciro. Status: Acute Assessment and plan: HD today. Day #2/3 daily initiation. HD orders written. UF 2L net neg. Social work to arrange admission to [facility] which is closer to [place] where she lives. IV contrast with coronary angiography is no longer contraindicated if planned by cardiology. Current Visit: Yes
--- NOTE | 2016-11-24 10:49 | Hospitalist Progress Note ---
Assessment and Plan (1) Diabetes Status: Chronic Assessment and plan: SSI Current Visit: No Qualifiers: Diabetes mellitus type: other specified (including MELANIA) Diabetes mellitus complication status: with kidney complications Chronic kidney disease stage: stage 3 (moderate) (2) Congestive heart failure Status: Acute Assessment and plan: Exacerbation secondary to not taking medications in 2 weeks Improved with IV lasix Now with HD Cardiology on board Current Visit: Yes (3) Anemia Status: Chronic Assessment and plan: Most likely secondary to chronic disease Received 2 units PRBCs 11/22/16 Responded appropriately Current Visit: Yes (4) CKD (chronic kidney disease) stage 5, GFR less than 15 ml/min Problem details: Day #2/3 daily HD initiation today. UF 2L as tolerated by hemodynamics. ESRD education by Ms Maryam Tanner. Status: Acute Assessment and plan: Nephrology managing Right tunnelled HD cath placed 11/24/16 Today is day 2/3 of initiation HD Working on HD placement in [place] Current Visit: Yes Hospitalist: Subjective Interval history: No acute events overnight. Patient reports some soreness yesterday at site where TDC was placed, but better today. Exam - Constitutional Vitals: Period Temp Pulse Resp BP Sys/Batres Pulse Ox Last 24 Hr 98 F-100.3 F 74-95 14-20 95-146/53-81 92-97 General appearance: normal weight - Head Head exam: Present: normocephalic, atraumatic - Eye Eye exam: Present: EOMI Pupils: Present: HAILEY - ENT ENT exam: Present: normal exam - Neck Neck exam: Present: normal inspection. Absent: thyromegaly - Respiratory Respiratory exam: Present: clear to auscultation bilaterally, rhonchi, wheezes - Cardiovascular Cardiovascular exam: Present: regular rate and rhythm - GI/Abdominal GI/Abdominal exam: Present: normal bowel sounds, soft - Extremities Exam Extremities exam: Present: normal inspection - Back Exam Back exam: Present: normal inspection - Neurological Exam Neurological exam: Present: alert, oriented X3 - Psychiatric Psychiatric exam: Present: normal affect, normal mood - Skin Skin exam: Present: warm, intact Results - Labs CBC & BMP: 11/24/16 04:57 11/24/16 04:57 Quality Measures - VTE Contraindication to Pharmacological VTE Prophylaxis: High Risk of Bleeding - Stroke Symptom Onset Unknown: No
--- NOTE | 2016-11-24 12:24 | Dialysis Note ---
Dialysis Note - Dialysis Note Patient is seen on hemodialysis, she is tolerating this well will continue her treatment unchanged.
--- NOTE | 2016-11-24 13:23 | Cardiology Progress Note ---
I, Keira Grimes RN, am scribing for, and in the presence of, David Ramos MD 13:21. Assessment and Plan (1) Congestive heart failure Status: Acute Assessment and plan: She is on Lasix 80 mg IV twice daily. She reports her breathing has improved, edema has also improved. With her dialysis now she may can stop her IV Lasix Current Visit: Yes (2) Elevated troponin Status: Acute Assessment and plan: This is likely related to renal insufficiency. She denies any chest pain. Cardiac buck she is stable. Current Visit: Yes (3) Chronic renal failure Status: Chronic Assessment and plan: She dialyzed yesterday following placement of hemodialysis access. She is being dialyzed today. Current Visit: Yes (4) Noncompliance with medication regimen Status: Chronic Assessment and plan: This is a chronic issue for her. Current Visit: No (5) Pericardial effusion Status: Acute Assessment and plan: This is small hemodynamically insignificant. Current Visit: Yes Cardiology - PN: Subj Interval history: Financial Intern: Dr. Velez Summary: Ms. Triplett is a 45-year-old female with a history of both ischemic and nonischemic cardiomyopathy, chronic renal insufficiency, diabetes, dyslipidemia , and hypertension. Heart catheterization in January 2016 showed moderate disease of the LAD distally and small intermediate ramus of moderate disease as well. It was decided to treat medically with consideration of staged PCI in the future if medical therapy failed. Creatinine has been elevated this admission and nephrology is following. Apparently she had ran out of her medications. She presented to [facility] November 20 in transfer from another hospital with complaints of chest pain shortness of breath. Echocardiogram done November 21 with ejection fraction of 20-25% and small pericardial effusion. She was anemic and transfused with 2 units of blood. Troponin was slightly elevated at 0.602 and remained flat, this is likely related to renal insufficiency. November 23, 2016: Ms. Triplett is seen resting in bed no acute distress. She denies any chest pain or shortness of breath at this time. She tells me her ankles were swollen on admission, I note no swelling at this time. She is scheduled for HD catheter placement this morning. After receiving blood product yesterday , her H&H is improved at 9.3 and 27.7. She is currently on Lasix 80 mg IV twice daily. Patient personally interviewed and examined and discussed with Keira Grimes RN. I agree with the assessment. I have reviewed the old chart and notes from yesterday. The patient is from cardiac standpoint stable. She denies shortness of breath or any chest pain. She has moderate coronary disease based on records. She has a significant cardiomyopathy which is been somewhat chronic. Her troponin is borderline more likely related to her renal sufficiency. She certainly is not demonstrating any evidence of acute ischemic event. In fact on my arrival the room she was working on making a bead bracelet. Generally she is feeling better and making good progress. Because her BUN and creatinine are continuing to increase she is for hemodialysis catheter today and for possible dialysis. Dialysis may also assist in volume management. I think in general this patient will be at low cardiac risk for planned dialysis catheter placement. November 24, 2016: Ms. Triplett underwent placement of right IJ tunneled hemodialysis catheter yesterday. She also underwent dialysis. BUN and creatinine is improved this morning. Her H&H is continued improved since blood transfusion on November 22. This morning she denies any chest pain or palpitations. When asked about shortness of breath she says not really but a little bit. Vital signs been stable throughout the night. I have personally interviewed and examined the patient. I discussed the case with Keira Grimes RN. The patient is doing well post dialysis catheter placement and dialysis. She has been dialyzed again today. She generally is feeling better. We will continue to monitor her course and hopefully will be discharged soon. Exam (Progress Note) - Constitutional Vitals: Period Temp Pulse Resp BP Sys/Batres Pulse Ox Last 24 Hr 98 F-100.3 F 74-95 14-18 95-146/53-81 92-97 Exam: General appearance: normal weight, no acute distress - Head Head exam: Absent: abrasion, hematoma - Eye Eye exam: Absent: periorbital swelling, laceration to eyelids - Neck Neck exam: Absent: tenderness, has a dialysis catheter right lower neck and right upper chest. - Respiratory Respiratory exam: Present: clear to auscultation bilaterally. Absent: accessory muscle use, chest wall tenderness - Cardiovascular Cardiovascular exam: Present: regular rate and rhythm. Absent: systolic murmur - GI/Abdominal GI/Abdominal exam: Present: normal bowel sounds, soft. Absent: distended, tenderness - Extremities Exam Extremities exam: Absent: calf tenderness, edema - Neurological Exam Neurological exam: Present: alert, oriented X3 - Psychiatric Psychiatric exam: Present: normal affect, normal mood - Skin Skin exam: Present: warm, dry, right IJ dialysis access Result/EKG - Labs CBC & BMP: 11/24/16 04:57 11/24/16 04:57 Lab Results: I have reviewed the past 24 hour labs Labs: Laboratory Results - last 24 hr 11/23/16 11/23/16 11/23/16 04:26 18:36 19:07 WBC RBC Hgb Hct MCV MCH MCHC RDW Plt Count MPV Neut % (Auto) Lymph % (Auto) Taliaferro % (Auto) Eos % (Auto) Baso % (Auto) Neut # (Auto) Lymph # (Auto) Taliaferro # (Auto) Eos # (Auto) Baso # (Auto) Immature Gran % Nucleated RBC % Immature Gran # Nucleated RBCs # Immature Plt Fraction Sodium Potassium Chloride Carbon Dioxide Anion Gap BUN Creatinine GFR Calculation BUN/Creatinine Ratio Glucose POC Glucose 116 H 122 H Calculated Osmolality Calcium Magnesium Serum , Qual Negative 11/24/16 11/24/16 04:57 04:57 WBC 4.7 RBC 3.21 L Hgb 9.9 L Hct 29.0 L MCV 90.3 MCH 31 MCHC 34.1 RDW 16.4 Plt Count 178 MPV 10.2 Neut % (Auto) 60.6 Lymph % (Auto) 27.0 Taliaferro % (Auto) 8.0 Eos % (Auto) 3.4 Baso % (Auto) 0.6 Neut # (Auto) 2.9 Lymph # (Auto) 1.3 L Taliaferro # (Auto) 0.4 Eos # (Auto) 0.2 Baso # (Auto) 0.0 Immature Gran % 0.4 Nucleated RBC % 0.0 Immature Gran # 0.02 Nucleated RBCs # 0.00 Immature Plt Fraction 0.0 Sodium 143 Potassium 3.9 Chloride 112 H Carbon Dioxide 19 L Anion Gap 15.9 H BUN 45 H Creatinine 4.90 H GFR Calculation 9 BUN/Creatinine Ratio 9.00 Glucose 94 POC Glucose Calculated Osmolality 296.0 Calcium 6.4 L Magnesium 1.6 L Serum , Qual - Diagnostic Findings Procedure: Chest x-ray: report reviewed by me Quality Measures - VTE Contraindication to Pharmacological VTE Prophylaxis: High Risk of Bleeding - Stroke Symptom Onset Unknown: No I, David Ramos MD, personally performed the services described in this documentation, ascribed by Keira Grimes RN in my presence, and it is both accurate and complete 323 .
--- NOTE | 2016-11-24 14:02 | Event Note ---
POD1 tunneled hemodialysis catheter placement by dr da silva on 11/23/16 pt is doing well w no complaints. tolerated 2 hours of HD yesterday. afvss, creatinine down to 4.9 catheter site looks good AP--follow up w dr da silva 1wk p dc w vein mapping dr da silva to sign off. call if needed.
[2016-11-24] MEDS: ATORVASTATIN 80 MG TABLET PO SCH (21:46)
[2016-11-25 05:54] LABS: Basophils % 0.6 % (0.0-0.8); Eosinophils # 0.2 10*3/uL (0.0-0.87); Eosinophils % 3.6 % (0.00-10.9); Hematocrit 30.5 VOL% (35.7-47.0); Hemoglobin 10.6 GM/DL (12.0-16.0); Immature Granulocytes % 0.4 %; Immature Granulocytes Absolute 0.02 #; Lymphocytes # 1.5 10*3/uL (1.4-4.0); Mean Corpuscular HGB Conc 34.8 GM/DL (32-36); Mean Corpuscular Hemoglobin 31 PG (27-34); Mean Corpuscular Volume 88.2 FL (87-102); Monocytes # 0.5 10*3/uL (0.11-0.8); Monocytes % 9.9 % (1.7-12.7); Neutrophils # 2.7 10*3/uL (1.4-7.4); Neutrophils % 54.5 % (38.7-73.9); Platelet Count 137 T/CUMM (130-400); Red Blood Count 3.46 MC/CUMM (3.8-5.5); Red Cell Distribution Width 15.6 % (9.3-17.3)
[2016-11-25 06:24] LABS: Calcium 7.7 MG/DL (8.5-10.1); Magnesium 1.7 MG/DL (1.8-2.4); Osmolality,Calculated 279.5 MOS/KG (273-304); Potassium 3.7 MMOL/L (3.5-5.1)
--- NOTE | 2016-11-25 06:57 | Hospitalist Progress Note ---
Assessment and Plan (1) Renal insufficiency Status: Chronic Assessment and plan: Repetitive admissions since June of this year with volume overload and deteriorating renal function precipitating in the initiation of hemodialysis. Current Visit: No (2) Cardiomyopathy Status: Chronic Assessment and plan: Coronary angiography shows distal left anterior descending coronary artery disease ramus intermedius disease with decreased left ventricular ejection fraction. Ejection fraction has varied from 25% to 40% dependent upon technique utilized and presumptively loading conditions of the left ventricle. Current Visit: No (3) Hypertension Status: Chronic Current Visit: No Qualifiers: Hypertension type: essential hypertension Qualified Code(s): I10 - Essential (primary) hypertension (4) Diabetes Status: Chronic Current Visit: No Qualifiers: Diabetes mellitus type: other specified (including MELANIA) Diabetes mellitus complication status: with kidney complications Chronic kidney disease stage: stage 3 (moderate) Hospitalist: Subjective Interval history: 45-year-old female with history of hypertension and diabetes who has had previous cardiac catheterization demonstrating noncritical distal left anterior descending coronary artery disease and ramus intermedius disease but associated with a variably interpreted but consistently low left ventricular ejection fraction. In addition she has decreased renal function with introduction of hemodialysis. She was admitted on this occasion with marked volume expansion responding to hemodialysis. She demonstrates overnight stable vital signs she has no shortness of breath. She is afebrile. Exam - Constitutional Vitals: Period Temp Pulse Resp BP Sys/Batres Pulse Ox Last 24 Hr 97.3 F-98.5 F 81-96 14-20 108-177/56-83 94-97 General appearance: normal weight, no acute distress - Respiratory Respiratory exam: Present: clear to auscultation bilaterally. Absent: rales, rhonchi, wheezes - Cardiovascular Cardiovascular exam: Present: regular rate and rhythm - GI/Abdominal GI/Abdominal exam: Present: normal bowel sounds. Absent: tenderness - Extremities Exam Extremities exam: Absent: edema - Neurological Exam Neurological exam: Present: alert, oriented X3 Results - Labs CBC & BMP: 11/25/16 05:03 11/25/16 05:03 Labs: Magnesium 1.7 Quality Measures - VTE Contraindication to Pharmacological VTE Prophylaxis: High Risk of Bleeding - Stroke Symptom Onset Unknown: No Specialty Discharge - Follow Up or Referrals Follow up with: Esteban Pacheco MD [Physician] - 1 Week (for vein mapping )
--- NOTE | 2016-11-25 08:35 | Nephrology Progress Note ---
Nephrology - PN: Subj Interval history: PT in good spirits. Tolerated 3hrs HD yesterday with UF 2L removed. States her breathing is good. Chair at [facility] for [facility], beginning tomorrow. Exam (PN)-Nephrology - Vital Signs Vital signs: Period Temp Pulse Resp BP Sys/Batres Pulse Ox Last 24 Hr 97.3 F-98.5 F 81-96 14-20 108-177/56-83 94-97 - General Appearance General appearance: well-developed, well-nourished EENT: ATNC, PERRL, mucous membranes dry, hearing intact, vision intact Neck: no JVD, no thyromegaly Respiratory: no kyphosis, clear Cardiology: no murmurs, no rub, no edema Gastrointestinal: normoactive bowel sounds, no tenderness Integumentary: no rash, warm and dry Neurologic: no focal deficit, no asterixis, alert and oriented x3 Musculoskeletal: no deformities, no erythema Psychiatric: mood/affect appropriate, cooperative - Lab 11/25/16 05:03 11/25/16 05:03 Most recent lab results Calcium 7.7 MG/DL (8.5-10.1) L D 11/25/16 05:03 Magnesium 1.7 MG/DL (1.8-2.4) L 11/25/16 05:03 Assessment and Plan (1) CKD (chronic kidney disease) stage 5, GFR less than 15 ml/min Problem details: Day #3/3 daily HD initiation today. UF 2L as tolerated by hemodynamics. ESRD education by Ms Francisco Tanner. Status: Acute Assessment and plan: HD today. Day #3/3 daily initiation. UF 2L net neg. Social work to arrange admission to [facility] which is closer to [place] where she lives. IV contrast with coronary angiography is no longer contraindicated if planned by cardiology. Stable for d/c home after dialysis from nephrology standpoint. Current Visit: Yes Specialty Discharge - Follow Up or Referrals Follow up with: Esteban Pacheco MD [Physician] - 1 Week (for vein mapping )
[2016-11-25] MEDS: FUROSEMIDE 100 MG/10 ML VIAL IV SCH (09:33)
[2016-11-25] MEDS: ISOSORBIDE MONONITRATE 30 MG TABLET PO SCH (09:33)
[2016-11-25] MEDS: CARVEDILOL 25 MG TABLET PO SCH ×2 (09:33→16:49)
[2016-11-25] MEDS: INSULIN LISPRO 100 UNIT/ML SUBCUT SCH ×4 (09:33→21:12)
[2016-11-25] MEDS: PANTOPRAZOLE 40 MG TABLET PO SCH (09:34)
[2016-11-25] MEDS: CALCITRIOL 0.25 MCG CAPSULE PO SCH (09:34)
[2016-11-25] MEDS: amLODIPine 10 MG TABLET PO SCH (09:34)
--- NOTE | 2016-11-25 13:22 | Dialysis Note ---
Dialysis Note - Dialysis Note Patient seen on hemodialysis, she is tolerating as well will continue her treatment unchanged.
--- NOTE | 2016-11-25 17:10 | Cardiology Progress Note ---
I, Keira Grimes RN, am scribing for, and in the presence of, David Ramos MD 17:09. Assessment and Plan (1) Congestive heart failure Status: Acute Assessment and plan: Her furosemide is to stop and dialysis will be used to maintain her fluid balance. Current Visit: Yes (2) Elevated troponin Status: Acute Assessment and plan: This is likely related to renal insufficiency. She denies any chest pain. She is really stable from this point. Current Visit: Yes (3) Chronic renal failure Status: Chronic Assessment and plan: She has had placement of hemodialysis catheter. She is tolerating dialysis well. Current Visit: Yes (4) Noncompliance with medication regimen Status: Chronic Assessment and plan: This is a chronic issue. Current Visit: No (5) Pericardial effusion Status: Acute Assessment and plan: This is small, hemodynamically insignificant. Current Visit: Yes Cardiology - PN: Subj Interval history: Dry Heat Room Attendant: Dr. Velez Summary: Ms. Triplett is a 45-year-old female with a history of both ischemic and nonischemic cardiomyopathy, chronic renal insufficiency, diabetes, dyslipidemia , and hypertension. Heart catheterization in January 2016 showed moderate disease of the LAD distally and small intermediate ramus of moderate disease as well. It was decided to treat medically with consideration of staged PCI in the future if medical therapy failed. Creatinine has been elevated this admission and nephrology is following. Apparently she had ran out of her medications. She presented to [facility] November 20 in transfer from another hospital with complaints of chest pain shortness of breath. Echocardiogram done November 21 with ejection fraction of 20-25% and small pericardial effusion. She was anemic and transfused with 2 units of blood. Troponin was slightly elevated at 0.602 and remained flat, this is likely related to renal insufficiency. November 23, 2016: Ms. Triplett is seen resting in bed no acute distress. She denies any chest pain or shortness of breath at this time. She tells me her ankles were swollen on admission, I note no swelling at this time. She is scheduled for HD catheter placement this morning. After receiving blood product yesterday , her H&H is improved at 9.3 and 27.7. She is currently on Lasix 80 mg IV twice daily. Patient personally interviewed and examined and discussed with Keira Grimes RN. I agree with the assessment. I have reviewed the old chart and notes from yesterday. The patient is from cardiac standpoint stable. She denies shortness of breath or any chest pain. She has moderate coronary disease based on records. She has a significant cardiomyopathy which is been somewhat chronic. Her troponin is borderline more likely related to her renal sufficiency. She certainly is not demonstrating any evidence of acute ischemic event. In fact on my arrival the room she was working on making a bead bracelet. Generally she is feeling better and making good progress. Because her BUN and creatinine are continuing to increase she is for hemodialysis catheter today and for possible dialysis. Dialysis may also assist in volume management. I think in general this patient will be at low cardiac risk for planned dialysis catheter placement. November 24, 2016: Ms. Triplett underwent placement of right IJ tunneled hemodialysis catheter yesterday. She also underwent dialysis. BUN and creatinine is improved this morning. Her H&H is continued improved since blood transfusion on November 22. This morning she denies any chest pain or palpitations. When asked about shortness of breath she says not really but a little bit. Vital signs been stable throughout the night. I have personally interviewed and examined the patient. I discussed the case with Keira Grimes RN. The patient is doing well post dialysis catheter placement and dialysis. She has been dialyzed again today. She generally is feeling better. We will continue to monitor her course and hopefully will be discharged soon. November 25, 2016: Ms. Triplett is seen sitting up eating breakfast this morning. She denies any chest pain or shortness of breath. She does complain of tenderness in the right side of her neck. Vital signs have been stable. Her cell counts and creatinine both continue to improve. She is scheduled to dialyze again today. Patient was personally interviewed and examined by me and chart again reviewed. I discussed this case with Keira Grimes RN. The patient generally is doing well with her dialysis and is improving daily. She is not having shortness of breath and has a good appetite. She is not having lower extremity edema. She has had no chest pain other cardiac symptomatology. She is probably [facility] hospital benefit would be discharged soon. She has a follow-up appointment with Dr. Alanis on the of this month and I have encouraged her to keep that follow-up. We have nothing new to offer today. Exam (Progress Note) - Constitutional Vitals: Period Temp Pulse Resp BP Sys/Batres Pulse Ox Last 24 Hr 97.3 F-98.5 F 81-96 14-20 108-177/56-83 94-97 Exam: General appearance: normal weight, no acute distress - Head Head exam: Absent: abrasion, hematoma - Eye Eye exam: Absent: periorbital swelling, laceration to eyelids - Neck Neck exam: Present: tenderness to right side of neck, dressing noted - Respiratory Respiratory exam: Present: clear to auscultation bilaterally. Absent: accessory muscle use, chest wall tenderness - Cardiovascular Cardiovascular exam: Present: regular rate and rhythm. Absent: systolic murmur - GI/Abdominal GI/Abdominal exam: Present: normal bowel sounds, soft. Absent: distended, tenderness - Extremities Exam Extremities exam: Absent: calf tenderness, edema - Neurological Exam Neurological exam: Present: alert, oriented X3 - Psychiatric Psychiatric exam: Present: normal affect, normal mood - Skin Skin exam: Present: warm, dry, right IJ dialysis access Result/EKG - Labs CBC & BMP: 11/25/16 05:03 11/25/16 05:03 Lab Results: I have reviewed the past 24 hour labs Labs: Laboratory Results - last 24 hr 11/24/16 11/24/16 11/24/16 07:22 11:44 16:27 WBC RBC Hgb Hct MCV MCH MCHC RDW Plt Count MPV Neut % (Auto) Lymph % (Auto) [facility] % (Auto) Eos % (Auto) Baso % (Auto) Neut # (Auto) Lymph # (Auto) [facility] [facility] # (Auto) Eos # (Auto) Baso # (Auto) Immature Gran % Nucleated RBC % Immature Gran # Nucleated RBCs # Immature Plt Fraction Sodium Potassium Chloride Carbon Dioxide Anion Gap BUN Creatinine GFR Calculation BUN/Creatinine Ratio Glucose POC Glucose 95 166 H 143 H Calculated Osmolality Calcium Magnesium 11/24/16 11/25/16 11/25/16 19:11 05:03 05:03 WBC 5.0 RBC 3.46 L Hgb 10.6 L Hct 30.5 L MCV 88.2 MCH 31 MCHC 34.8 RDW 15.6 Plt Count 137 D MPV 10.0 Neut % (Auto) 54.5 Lymph % (Auto) 31.0 [facility] % (Auto) 9.9 Eos % (Auto) 3.6 Baso % (Auto) 0.6 Neut # (Auto) 2.7 Lymph # (Auto) 1.5 [facility] # (Auto) 0.5 Eos # (Auto) 0.2 Baso # (Auto) 0.0 Immature Gran % 0.4 Nucleated RBC % 0.0 Immature Gran # 0.02 Nucleated RBCs # 0.00 Immature Plt Fraction 0.0 Sodium 139 Potassium 3.7 Chloride 105 Carbon Dioxide 26 Anion Gap 11.7 BUN 20 H Creatinine 3.40 H GFR Calculation 14 BUN/Creatinine Ratio 5.00 L Glucose 94 POC Glucose 182 H Calculated Osmolality 279.5 Calcium 7.7 L D Magnesium 1.7 L 11/25/16 07:24 WBC RBC Hgb Hct MCV MCH MCHC RDW Plt Count MPV Neut % (Auto) Lymph % (Auto) [facility] % (Auto) Eos % (Auto) Baso % (Auto) Neut # (Auto) Lymph # (Auto) [facility] # (Auto) Eos # (Auto) Baso # (Auto) Immature Gran % Nucleated RBC % Immature Gran # Nucleated RBCs # Immature Plt Fraction Sodium Potassium Chloride Carbon Dioxide Anion Gap BUN Creatinine GFR Calculation BUN/Creatinine Ratio Glucose POC Glucose 102 Calculated Osmolality Calcium Magnesium Quality Measures - VTE Contraindication to Pharmacological VTE Prophylaxis: High Risk of Bleeding - Stroke Symptom Onset Unknown: No Specialty Discharge - Follow Up or Referrals Follow up with: Esteban Pacheco MD [Physician] - 1 Week (for vein mapping ) Richard Jimenez John Timothy, MD, personally performed the services described in this documentation, ascribed by Keira Grimes RN in my presence, and it is both accurate and complete .
[2016-11-25] MEDS: ATORVASTATIN 80 MG TABLET PO SCH (21:15)
--- NOTE | 2016-11-26 08:17 | Discharge Summary ---
Hospital Course - Hospital Course Hospital Course: 45-year-old female hypertensive with diabetes who on this admission was initiated on hemodialysis following a period of repetitive admissions for volume overload. She had undergone cardiac catheterization previously demonstrating noncritical distal left anterior descending coronary artery disease with ramus intermedius disease but associated with consistently low left ventricular ejection fraction. Following introduction of hemodialysis the patient symptomatically improved shortness of breath resolved. She is being discharged at this time to begin outpatient dialysis. She is scheduled to follow-up with surgery regarding placement of a permanent access. Diagnosis - Discharge Diagnosis (1) Renal insufficiency Status: Chronic (2) Cardiomyopathy Status: Chronic (3) Hypertension Status: Chronic (4) Diabetes Status: Chronic Specialty Discharge - Follow Up or Referrals Follow up with: Esteban Pacheco MD [Physician] - 1 Week (for vein mapping ) Discharge Plan - Discharge Data Disposition: Disch To Home/Self Care Condition at Discharge: Stable Discharge Diet: diabetic diet - Discharge Medications New Calcitriol [Rocaltrol] 0.25 mcg PO DAILY #30 capsule hydrALAZINE TAB [Apresoline Tab] 50 mg PO TID #100 tablet Continue Atorvastatin [Lipitor] 80 mg PO BEDTIME #30 tablet Carvedilol [Coreg] 25 mg PO BID #60 tablet Isosorbide Mononitrate [Isosorbide Mononitrate ER] 30 mg PO DAILY Calcium Carbonate Chew [Tums] 2 tablet PO BID #60 tablet Discontinued hydrALAZINE TAB [Apresoline Tab] 50 mg PO TID #90 tablet amLODIPine [Norvasc] 10 mg PO DAILY #30 tablet Furosemide Tab [Lasix Tab] 160 mg PO BID DIURETIC #60 tablet - Follow Up or Referral Follow Up: Esteban Pacheco MD [Physician] - 1 Week (for vein mapping ) - Forms/Instructions Instructions: Hemodialysis (DC), Dialysis Diet (DC), End-Stage Kidney Disease ( DC) Exam - Constitutional Vitals: Period Temp Pulse Resp BP Sys/Batres Pulse Ox Last 24 Hr 97.3 F-99.5 F 73-94 16-20 112-156/58-78 92-96 Discharge Results Labs on day of discharge: Labs from last 24 hours 11/26/16 11/25/16 11/25/16 07:14 18:56 15:09 POC Glucose 93 229 H 195 H 11/25/16 14:01 POC Glucose 90 DS: Provider Date of admission: 11/21/16 01:17 Primary care physician: Sina Young MD Attending physician on admission: Homer Cevallos MD Consults: 11/21/16 01:16 Consult to Physician [CONS] Routine Comment: CKD [address] Chance Consulting Provider: Ted Bennett Consult to Specialist Group: Nephrology When should Consulting Provider be notified: In am Person Notified: aware Date Notified: 11/21/16 Time Notified: 10:14 11/21/16 01:43 Consult to Physician [CONS] Routine Comment: chf and elevated troponin Consulting Provider: Donnie Valencia Consult to Specialist Group: Cardiology When should Consulting Provider be notified: In am Person Notified: Kathleen Date Notified: 11/21/16 Time Notified: 07:37 11/22/16 11:09 Consult to Physician [CONS] Routine Comment: Consulting Provider: Esteban Pacheco Person Notified: aware Date Notified: 11/22/16 Time Notified: 11:09 11/23/16 09:30 Consult to Anesthesiology [CONS] Routine Consulting Provider: Reason for Anesthesiology: Pre-op Clearance Discharging clinician: Rob Mattson MD Expected date of discharge: 11/26/16
[2016-11-26] MEDS: CALCITRIOL 0.25 MCG CAPSULE PO SCH (08:24)
[2016-11-26] MEDS: ISOSORBIDE MONONITRATE 30 MG TABLET PO SCH (08:25)
[2016-11-26] MEDS: CARVEDILOL 25 MG TABLET PO SCH (08:25)
[2016-11-26] MEDS: PANTOPRAZOLE 40 MG TABLET PO SCH (08:25)
[2016-11-26] MEDS: INSULIN LISPRO 100 UNIT/ML SUBCUT SCH (08:26)
[2016-11-26 08:59] VITALS: BP 134/74
--- NOTE | 2016-11-26 09:56 | Nephrology Progress Note ---
Nephrology - PN: Subj Interval history: PT states she feels fine. Finished day #3 of daily dialysis initiation yesterday. Not discharged. She was set up for outpt dialysis today in [place] @ 1100hrs. She will not be able to make that appointment. No reason for not being discharged yesterday. This is unacceptable. Exam (PN)-Nephrology - Vital Signs Vital signs: Period Temp Pulse Resp BP Sys/Batres Pulse Ox Last 24 Hr 97.3 F-99.5 F 73-94 16-20 112-156/58-78 92-96 - General Appearance General appearance: well-developed, well-nourished EENT: ATNC, PERRL, mucous membranes dry, hearing intact, vision intact Neck: no JVD, no carotid bruit Respiratory: no kyphosis, clear Cardiology: no murmurs, no rub Gastrointestinal: normoactive bowel sounds, no tenderness Integumentary: no rash, warm and dry Neurologic: no focal deficit, no asterixis, alert and oriented x3 Musculoskeletal: no deformities, no erythema Psychiatric: mood/affect appropriate, cooperative - Lab 11/25/16 05:03 11/25/16 05:03 Most recent lab results Calcium 7.7 MG/DL (8.5-10.1) L D 11/25/16 05:03 Magnesium 1.7 MG/DL (1.8-2.4) L 11/25/16 05:03 Assessment and Plan (1) CKD (chronic kidney disease) stage 5, GFR less than 15 ml/min Problem details: Stable for d/c home. Status: Acute Assessment and plan: HD Wednesday. Pt counseled to fluid restrict to 1.5L/day. Current Visit: Yes Specialty Discharge - Follow Up or Referrals Follow up with: Esteban Pacheco MD [Physician] - 12/07/16 2:45 pm (for vein mapping2016@2:45 for f/u appt. 12/09/2016@9:30 )
== END 2016-11-26 10:49 | disposition home or self-care (01) | DRG 291 ==
LOC: EDUNIT# → EDBD → N.ED 23:19 → SUATTDRO 11-21 01:16 → N.EDINP 11-21 01:16 → SUATTDRO 11-21 01:17 → N.5E 11-21 02:00
PROVIDERS: ADMIT Internal Medicine; ATTEND Internal Medicine Cardiovascular Disease